=== PATIENT | female | born 2000 | race Caucasian/White ===

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

== ENCOUNTER → 2018-02-06 16:45 | Outpatient (CLI) | payer MEDICAID, SELFPAY ==
[2018-02-06 17:31] LABS: HCG,Quantitative 32 mIU/mL
== END ==
PROVIDERS: PCP Family Medicine; Visit Provider Nurse Practitioner Obstetrics & Gynecology
DX: O20.0 Threatened abortion (principal)
CPT/HCPCS: 36415; 84702

== ENCOUNTER → 2018-02-17 14:20 | Outpatient (CLI) | payer MEDICAID, SELFPAY ==
[2018-02-17 17:26] LABS: HCG,Quantitative 1 mIU/mL
== END ==
PROVIDERS: PCP Family Medicine; Visit Provider Nurse Practitioner Obstetrics & Gynecology
DX: O20.0 Threatened abortion (principal)
CPT/HCPCS: 36415; 84702

== ENCOUNTER → 2018-06-08 12:13 | Outpatient (CLI) | payer BC, MEDICAID, SELFPAY ==
[2018-06-08 13:35] LABS: HCG,Quantitative 1375 mIU/mL
== END ==
PROVIDERS: Visit Provider Nurse Practitioner Obstetrics & Gynecology
DX: Z32.00 Encounter for pregnancy test, result unknown (principal)
CPT/HCPCS: 36415; 84702

== ENCOUNTER → 2018-06-10 08:40 | Outpatient (CLI) | payer BC, MEDICAID, SELFPAY ==
[2018-06-10 10:22] LABS: HCG,Quantitative 3732 mIU/mL
== END ==
PROVIDERS: Visit Provider Obstetrics & Gynecology
DX: Z32.00 Encounter for pregnancy test, result unknown (principal)
CPT/HCPCS: 36415; 84702

== ENCOUNTER → 2018-06-15 09:44 | Outpatient (CLI) | payer BC, MEDICAID, SELFPAY ==
--- NOTE | 2018-06-15 09:48 | US_ITS ---
US OB transvaginal HISTORY: ITS.REASON: US OB Dates ORDERING PHYSICIAN: Eliel Lord MD PATIENT AGE: 18 years COMPARISON: None FINDINGS: There is an intrauterine gestational sac noted with a yolk sac. A definite pole is not identified. It may be too early to see a pole. Follow-up ultrasound recommended in one week for confirmation of viable intrauterine gestation in this patient with a history of miscarriage. There is a 1 cm left corpus luteum cyst. No cul-de-sac fluid. IMPRESSION: There is an intrauterine gestational sac with a yolk sac but no obvious pole. Cannot confirm viable intrauterine gestation at this time. Follow-up ultrasound and serial beta hCG is suggested.
== END ==
PROVIDERS: PCP Family Medicine; Visit Provider Nurse Practitioner Obstetrics & Gynecology
DX: O26.841 Uterine size-date discrepancy, first trimester (principal)
CPT/HCPCS: 76817

== ENCOUNTER → 2018-06-20 16:27 | Outpatient (CLI) | payer BC, SELFPAY ==
[2018-06-23 18:04] LABS: Neisseria gonorrhoeae, NAA Negative (Negative)
== END ==
PROVIDERS: Visit Provider Nurse Practitioner Obstetrics & Gynecology
DX: Z34.90 Encounter for supervision of normal pregnancy, unspecified, unspecified trimester (principal)
CPT/HCPCS: 87491; 87591

== ENCOUNTER → 2018-06-21 08:02 | Outpatient (CLI) | payer BC, SELFPAY ==
[2018-06-21 08:35] LABS: Basophils % 0.4 % (0.1-2.0); Eosinophils # 0.1 K/mm3 (0.0-0.4); Hematocrit 38.1 % (37.0-47.0); Hemoglobin 12.7 g/dL (12.2-16.2); Lymphocytes # 1.7 K/mm3 (0.7-4.5); Lymphocytes % 30.7 % (10-50); Mean Corpuscular HGB Conc 33.3 g/dL (31.8-35.4); Mean Corpuscular Hemoglobin 30.6 pg (27.0-31.2); Mean Corpuscular Volume 91.9 fl (81-99); Mean Platelet Volume 7.2 fl (7.4-10.4); Monocytes # 0.3 K/mm3 (0.1-1.0); Monocytes % 6.3 % (1.7-9.3); Neutrophils # 3.3 K/mm3 (1.8-7.8); Neutrophils % 61.5 % (37.0-80.0); Platelet Count 248 K/mm3 (142-424); Red Blood Count 4.14 M/mm3 (4.20-5.40); Red Cell Distribution Width 12.8 % (11.5-17.5); White Blood Count 5.4 K/mm3 (4.5-13.0)
[2018-06-22 08:27] LABS: HIV Screen 4th Generation wRfx Non Reactive (Non Reactive)
[2018-06-22 11:16] LABS: Hepatitis B Surface Antigen Negative (Negative); Hepatitis C Antibody <0.1 s/co ratio (0.0-0.9)
[2018-06-22 11:17] LABS: Rapid Plasma Reagin Ab Titer Non Reactive (NonRea<1:1)
== END ==
PROVIDERS: Visit Provider Nurse Practitioner Obstetrics & Gynecology
DX: Z34.90 Encounter for supervision of normal pregnancy, unspecified, unspecified trimester (principal)
CPT/HCPCS: 36415; 85025; 86592; 86703; 86762; 86850; 87340; 87380; G0432

== ENCOUNTER → 2018-06-26 12:57 | Outpatient (CLI) | payer BC, MEDICAID, SELFPAY ==
--- NOTE | 2018-06-26 13:01 | US_ITS ---
US OB transvaginal HISTORY: Evaluate for intrauterine and viability ITS.REASON: US OB Dates- Repeat (previous one was too early) ORDERING PHYSICIAN: Eliel Lord MD PATIENT AGE: 18 years COMPARISON: None FINDINGS: An intrauterine gestational sac is present with a pole with a crown-rump length of 0.73cm correlating to gestational age of 6w5d. heart tones are present with an FHR of 126 bpm's. Yolk sac is noted. Adnexa: 1.3 similar left corpus luteum cyst. IMPRESSION: Live intrauterine gestation at 6 weeks 5 days as described above. Estimated due date by Ultrasound is 02/14/2019
== END ==
PROVIDERS: PCP Family Medicine; Visit Provider Nurse Practitioner Obstetrics & Gynecology
DX: O26.841 Uterine size-date discrepancy, first trimester (principal)
CPT/HCPCS: 76817

== ENCOUNTER → 2018-09-25 13:04 | Outpatient (CLI) | payer BC, MEDICAID, SELFPAY ==
--- NOTE | 2018-09-25 13:10 | US_ITS ---
US OB /maternal detail: INDICATION: ITS.REASON: US OB Complete ORDERING PHYSICIAN: Eliel Lord MD PATIENT AGE: 18 years TECHNIQUE: ultrasound transabdominal scanning. COMPARISON: No previous relevant studies. FINDINGS: Single viable intrauterine gestation. Breech position. Placenta: Anterior placenta grade 1. There is average amount fluid. The cervix appears satisfactory. Closed and measuring 5 cm in length. Complete survey performed and was unremarkable on the submitted images as in PACS. No discrete anomalies identified on survey imaging by technologist. Active fetus. Three-vessel cord with satisfactory umbilical cord insertion. 4- chamber heart noted. Survey of brain & ventricles unremarkable. Face and neck survey unremarkable. Diaphragm and chest views unremarkable. Abdomen: Both kidneys noted and unremarkable. Stomach noted and satisfactory. Spine: Survey of the spine satisfactory with no anomalies identified nor imaged. Both arms and legs noted. Amniotic Fluid: Adequate. Maternal adnexa: No significant findings. Measurements: Average ultrasound age 20w2d. Gestational Age 19w5d. Estimated due date by ultrasound age 0802/10/2019. Estimated weight 332 grams. BPD = 20w4d OFD = 20w5d HC = 20w0d AC = 20w1d FL = 20w1d Growth Percentile= 68% Heart Rate = 155 bpm Cerebellum = 20w5d Humerus = 20w2d HC/AC is 1.17 (1.09-1.26). CI is 78% (70-86%). FL/BPD is 68%. FL/AC is 22%. IMPRESSION: There is a single live fetus which is in breech presentation with an average ultrasound age of 20 weeks and 2 days. All parameters correlate. No obvious anomalies. Please see above for detail.
== END ==
PROVIDERS: PCP Family Medicine; Visit Provider Nurse Practitioner Obstetrics & Gynecology
DX: Z36.0 Encounter for antenatal screening for chromosomal anomalies (principal)
CPT/HCPCS: 76811

== ENCOUNTER → 2018-11-11 09:34 | Outpatient (CLI) | payer MEDICAID, OTHER, SELFPAY ==
[2018-11-11 10:14] LABS: Glucose,Fasting 76 mg/dL (60-105)
[2018-11-11 11:31] LABS: Glucose 1 Hour 134 mg/dL (74-106)
== END ==
PROVIDERS: Visit Provider Nurse Practitioner Obstetrics & Gynecology
DX: Z34.90 Encounter for supervision of normal pregnancy, unspecified, unspecified trimester (principal)
CPT/HCPCS: 36415; 82951

== ENCOUNTER 2018-12-22 20:37 | Outpatient (CLI) | payer OTHER, MEDICAID, SELFPAY ==
[2018-12-22 20:44] VITALS: BMI 35.5
[2018-12-22 20:53] LABS: Microscopic, Urine URINE MICROSCOPIC (MICROSCOPIC)
[2018-12-22 20:58] LABS: Appearance,Urine CLEAR (Clear); Bilirubin,Urine Negative (Negative); Blood, Urine TRACE-L (Negative); Color,Urine YELLOW (Yellow); Glucose,Urine (UA) Negative (Negative); Ketones,Urine Negative (Negative); Leukocyte Esterase,Urine Negative (Negative); Nitrate,Urine Negative (Negative); Protein,Urine Negative (Negative); Specific Gravity, Urine >= 1.030 (1.005-1.030); Urobilinogen,Urine 0.2 EU/dl (0.2)
[2018-12-22 20:59] LABS: WBC,Urine Occasional #/hpf (0-3)
[2018-12-22 21:02] LABS: Amphetamine/Metha Screen,Urine Negative ng/mL (<1000); Barbiturates Screen,Urine Negative ng/mL (<200); Benzodiazepines Screen,Urine Negative ng/mL (<200); Cannabinoid Screen,Urine Negative ng/mL (<50); Cocaine Screen,Urine Negative ng/mL (<300); Methadone Screen,Urine Negative ng/mL (<300); Opiate Screen,Urine Negative ng/mL (<300); Phencyclidine Screen,Urine Negative ng/mL (<25)
[2018-12-22 21:06] VITALS: BP 128/83; PULSE 92; RESP 18; TEMP 37.2; O2SAT 97; BMI 35.5
[2018-12-22 21:20] LABS: Fetal Membrane Rupture (Rapid) Negative (Negative)
[2018-12-22 21:32] LABS: Fetal Fibronectin (Rapid) Negative (Negative)
== END 2018-12-22 23:30 | disposition home or self-care (01) ==
LOC: OBOUT 20:38 → OB 20:40
PROVIDERS: PCP Family Medicine; Visit Provider Obstetrics & Gynecology
DX: O47.03 False labor before 37 completed weeks of gestation, third trimester (principal); Z3A.32 32 weeks gestation of pregnancy
CPT/HCPCS: 59025; 80305; 81001; 82731; 84112; 96360; 96372

== ENCOUNTER 2018-12-26 09:32 | Outpatient (CLI) | payer OTHER, MEDICAID, SELFPAY ==
[2018-12-26 09:48] VITALS: BP 134/70; PULSE 93; RESP 18; TEMP 36.6; O2SAT 96; BMI 35.9
== END 2018-12-26 12:00 | disposition home health service (06) ==
LOC: OBOUT 09:34 → OB 09:36
PROVIDERS: PCP Family Medicine; Visit Provider Nurse Practitioner Obstetrics & Gynecology
DX: O47.03 False labor before 37 completed weeks of gestation, third trimester (principal); Z3A.32 32 weeks gestation of pregnancy
CPT/HCPCS: 59025; 96360; 96372

== ENCOUNTER → 2018-12-26 10:31 | Outpatient (CLI) | payer OTHER, MEDICAID, SELFPAY ==
[2018-12-26 11:50] LABS: Fetal Fibronectin (Rapid) Negative (Negative)
== END ==
PROVIDERS: Visit Provider Nurse Practitioner Obstetrics & Gynecology
DX: Z34.90 Encounter for supervision of normal pregnancy, unspecified, unspecified trimester (principal); Z3A.33 33 weeks gestation of pregnancy
CPT/HCPCS: 82731

== ENCOUNTER 2018-12-27 10:02 | Outpatient (CLI) | payer OTHER, MEDICAID, SELFPAY ==
[2018-12-27 10:06] VITALS: BP 129/81; PULSE 113; RESP 18; TEMP 36.8; O2SAT 96; BMI 35.0
== END 2018-12-27 10:51 | disposition home or self-care (01) ==
LOC: OBOUT 10:05 → OB 10:05
PROVIDERS: PCP Family Medicine; Visit Provider Nurse Practitioner Obstetrics & Gynecology
DX: O47.03 False labor before 37 completed weeks of gestation, third trimester (principal); Z3A.33 33 weeks gestation of pregnancy
CPT/HCPCS: 59025; 96372

== ENCOUNTER → 2018-12-29 14:01 | Outpatient (CLI) | payer OTHER, MEDICAID, SELFPAY ==
--- NOTE | 2018-12-29 14:03 | US_ITS ---
US OB BPP w/Fet-Mat S/D: Indication: ITS.REASON: US OB- BPP, Growth S/D Ratio- LGA ORDERING PHYSICIAN: Eliel Lord MD PATIENT AGE: 18 years FINDINGS: The following parameters are obtained: Average ultrasound age is 34w4d. Estimated due date by ultrasound is 02/05/2019. Estimated weight is 2477 grams. This is 82% BPD: 35w0d OFD: 34w5d HC: 34w3d AC: 35w1d FL: 33w5d heart rate: 135 bpm. HC/AC: 0.99 (0.96-1.11) Cephalic index: 80% (70-86%) FL/BPD: 76% (71-87%) FL/AC: 21% (20-24%) Amniotic fluid index: 19 cm which is slightly high Qualitative AFV: 2 breathing movements: 2 Gross body movements: 2 Tone: 2 Biophysical profile score: 8/8 Doppler evaluation of the umbilical artery: SD ratio: 2.0 Resistive index: 0.50 No obvious anomalies evident. Placenta: Anterior, GR2 Cervix: Appears closed and measures Measurement IMPRESSION: There is a single live fetus which is in cephalic presentation with an average ultrasound age of 34 weeks and 4 days with an estimated weight of 2474 g which is 82 percentile. heart body motion noted. Biophysical profile 8 of 8 Amniotic fluid index is slightly elevated at 19 cm Unremarkable Doppler evaluation of the umbilical artery Normal gated.
== END ==
PROVIDERS: PCP Family Medicine; Visit Provider Nurse Practitioner Obstetrics & Gynecology
DX: O36.60X0 Maternal care for excessive fetal growth, unspecified trimester, not applicable or unspecified (principal)
CPT/HCPCS: 76819

== ENCOUNTER 2019-01-08 16:34 | Outpatient (CLI) | payer OTHER, MEDICAID, SELFPAY ==
[2019-01-08 16:45] VITALS: BMI 36.3
[2019-01-08 16:53] VITALS: BP 138/84; PULSE 98; RESP 18; TEMP 36.8; O2SAT 96; BMI 36.3
[2019-01-08 17:19] LABS: Microscopic, Urine URINE MICROSCOPIC (MICROSCOPIC)
[2019-01-08 17:21] LABS: Appearance,Urine SL CLOUDY (Clear); Bilirubin,Urine Negative (Negative); Blood, Urine Negative (Negative); Color,Urine YELLOW (Yellow); Glucose,Urine (UA) Negative (Negative); Ketones,Urine Negative (Negative); Leukocyte Esterase,Urine Negative (Negative); Nitrate,Urine Negative (Negative); PH,Urine 6.5 (5.0-8.5); Protein,Urine Negative (Negative); Specific Gravity, Urine 1.025 (1.005-1.030); Urobilinogen,Urine 0.2 EU/dl (0.2)
[2019-01-08 17:30] LABS: Amphetamine/Metha Screen,Urine Negative ng/mL (<1000); Barbiturates Screen,Urine Negative ng/mL (<200); Benzodiazepines Screen,Urine Negative ng/mL (<200); Cannabinoid Screen,Urine Negative ng/mL (<50); Cocaine Screen,Urine Negative ng/mL (<300); Methadone Screen,Urine Negative ng/mL (<300); Opiate Screen,Urine Negative ng/mL (<300); Phencyclidine Screen,Urine Negative ng/mL (<25)
[2019-01-08 17:32] LABS: Bacteria,Urine 3+ /lpf; Mucus,Urine 4+ /lpf
== END 2019-01-08 18:20 | disposition home or self-care (01) ==
LOC: OBOUT 16:37 → OB 16:38
PROVIDERS: PCP Nurse Practitioner Obstetrics & Gynecology; Visit Provider Obstetrics & Gynecology
DX: O47.03 False labor before 37 completed weeks of gestation, third trimester (principal); Z3A.34 34 weeks gestation of pregnancy
CPT/HCPCS: 59025; 80305; 81001; 87086; 96360

== ENCOUNTER 2019-01-12 20:00 | Outpatient (CLI) | payer OTHER, MEDICAID, SELFPAY ==
[2019-01-12 20:06] VITALS: BMI 36.3
[2019-01-12 20:16] LABS: Microscopic, Urine URINE MICROSCOPIC (MICROSCOPIC)
[2019-01-12 20:19] LABS: Appearance,Urine CLEAR (Clear); Bilirubin,Urine Negative (Negative); Blood, Urine Negative (Negative); Color,Urine YELLOW (Yellow); Glucose,Urine (UA) Negative (Negative); Ketones,Urine Negative (Negative); Leukocyte Esterase,Urine Negative (Negative); Nitrate,Urine Negative (Negative); Protein,Urine Negative (Negative); Specific Gravity, Urine >= 1.030 (1.005-1.030); Urobilinogen,Urine 0.2 EU/dl (0.2)
[2019-01-12 20:30] LABS: Amphetamine/Metha Screen,Urine Negative ng/mL (<1000); Barbiturates Screen,Urine Negative ng/mL (<200); Benzodiazepines Screen,Urine Negative ng/mL (<200); Cannabinoid Screen,Urine Negative ng/mL (<50); Cocaine Screen,Urine Negative ng/mL (<300); Methadone Screen,Urine Negative ng/mL (<300); Opiate Screen,Urine Negative ng/mL (<300); Phencyclidine Screen,Urine Negative ng/mL (<25)
[2019-01-12 20:35] VITALS: BP 141/97; PULSE 120; RESP 18; TEMP 36.9; O2SAT 97; BMI 36.1
[2019-01-12 20:36] LABS: Bacteria,Urine Trace /lpf; WBC,Urine Occasional #/hpf (0-3)
== END 2019-01-12 21:30 | disposition home or self-care (01) ==
LOC: OBOUT 20:03 → OB 20:03
PROVIDERS: PCP Nurse Practitioner Obstetrics & Gynecology; Visit Provider Obstetrics & Gynecology
DX: O13.3 Gestational [pregnancy-induced] hypertension without significant proteinuria, third trimester (principal); Z3A.35 35 weeks gestation of pregnancy; R51 Headache
CPT/HCPCS: 59025; 80305; 81001

== ENCOUNTER → 2019-01-15 10:43 | Outpatient (CLI) | payer OTHER, MEDICAID, SELFPAY ==
[2019-01-15 11:28] LABS: Basophils % 0.3 % (0.1-2.0); Eosinophils % 0.3 % (0.1-12.0); Hematocrit 36.8 % (37.0-47.0); Hemoglobin 12.3 g/dL (12.2-16.2); Lymphocytes # 1.5 K/mm3 (0.7-4.5); Lymphocytes % 17.9 % (10-50); Mean Corpuscular HGB Conc 33.4 g/dL (31.8-35.4); Mean Corpuscular Hemoglobin 30.8 pg (27.0-31.2); Mean Corpuscular Volume 92.3 fl (81-99); Mean Platelet Volume 7.5 fl (7.4-10.4); Monocytes # 0.5 K/mm3 (0.1-1.0); Monocytes % 5.9 % (1.7-9.3); Neutrophils # 6.5 K/mm3 (1.8-7.8); Neutrophils % 75.5 % (37.0-80.0); Platelet Count 209 K/mm3 (142-424); Red Blood Count 3.99 M/mm3 (4.20-5.40); Red Cell Distribution Width 14.1 % (11.5-17.5); White Blood Count 8.6 K/mm3 (4.5-13.0)
[2019-01-15 11:51] LABS: Activated Partial Thrombo Time 24.4 seconds (23.6-34.0); Fibrinogen 445 mg/dL (204-500); INR 0.87 (0.9-1.1); Prothrombin Time 9.1 seconds (9.4-11.8)
[2019-01-15 12:39] LABS: Alanine Aminotransferase 18 U/L (12-78); Anion Gap 15.4 mEq/L (5-15); Aspartate Amino Transferase 15 U/L (15-37); Blood Urea Nitrogen 16 mg/dL (7-18); Carbon Dioxide 22 mmol/L (21.0-32.0); Chloride 104 mmol/L (98-107); Creatinine,Serum 0.42 mg/dL (0.55-1.02); Estimated Glomerular Filt Rate 192 ml/min (>60); GFR (African American) 233 ML/MIN (>60); Glucose 67 mg/dL (74-106); Potassium 4.4 mmoL/L (3.5-5.1); Sodium 137 mmol/L (136-145); Uric Acid 4.2 mg/dL (2.6-7.2)
[2019-01-15 13:13] LABS: D-Dimer 794 ng/mL (0-400)
== END ==
PROVIDERS: Visit Provider Nurse Practitioner Obstetrics & Gynecology
DX: O13.9 Gestational [pregnancy-induced] hypertension without significant proteinuria, unspecified trimester (principal); Z3A.36 36 weeks gestation of pregnancy
CPT/HCPCS: 36415; 80048; 84450; 84460; 84550; 85025; 85378; 85384; 85610; 85730; 86403

== ENCOUNTER → 2019-01-17 07:00 | Outpatient (CLI) | payer OTHER, MEDICAID, SELFPAY ==
[2019-01-17 11:30] LABS: Creatinine,Serum 0.48 mg/dL (0.55-1.02)
[2019-01-17 16:24] LABS: Creatinine,Urine Random 151 mg/dL (20-320); Total Protein,Urine Random 19.2 mg/dL (0.0-11.9)
[2019-01-17 16:58] LABS: Collection Time,Urine 24 hours; Creatinine 24 Hour,Urine 1737 mg/24hr (630-2500); Creatinine Clearance Urine 251.2 mL/min (25-115); Total Protein 24 Hour,Urine 221 mg/24 hr (40-90); Total Volume,Urine 1150 mL (600-1600)
== END ==
PROVIDERS: Visit Provider Nurse Practitioner Obstetrics & Gynecology
DX: O13.9 Gestational [pregnancy-induced] hypertension without significant proteinuria, unspecified trimester (principal); Z3A.36 36 weeks gestation of pregnancy
CPT/HCPCS: 82575; 84155

== ENCOUNTER → 2019-01-24 12:48 | Outpatient (CLI) | payer OTHER, MEDICAID, SELFPAY ==
--- NOTE | 2019-01-24 12:49 | US_ITS ---
PROCEDURE: US OB BPP W/FET-MAT S/D CLINICAL INDICATION: US OB BPP Growth- SGA Preeclampsia COMPARISON: OBBIOCOMP US OB BPP w/Fet-Mat S/D from 12/29/2018 FINDINGS: Single viable intrauterine gestation. Cephalic position. Placenta: Anteriorplacenta grade 2. There is average amount fluid. The cervix appears satisfactory. Closed and measuring 3 cm in length. Measurements: Average ultrasound age 38.14 week. Gestational Age 38.14 week Estimated due date by ultrasound age 0802/06/2019. Estimated weight 3,398.6 ggrams. BPD = 39 weeks 0 days OFD = 39 weeks 5 days HC = 37 weeks 6 days AC = 38 weeks 5 days FL = 36 weeks 4 days Growth Percentile= 60.2 Percent% Heart Rate = 122 bpm Cerebellum = Humerus = HC/AC is 0.95 CI is 0.83 FL/BPD is 0.75 FL/AC is 0.2 The biophysical profile is 8 of 8. Doppler evaluation of the umbilical artery is unremarkable with a resistive index of 0.[address] ratio of 2.4. The placenta is anterior and grade 2. 8 of 8 amniotic fluid index is normal at 17 cm. IMPRESSION: Single live fetus with an average ultrasound age of 38 weeks and 1 day. Estimated weight is 3398 g which is 60 percentile. Unremarkable Doppler evaluation of the umbilical artery. Biophysical profile 01/18 Dictated by: Joe Watts MD 01/29/2019 16:35 Signed by: <Electronically signed by Joe Watts MD in [place]> 01/29/2019 16:35
== END ==
PROVIDERS: PCP Family Medicine; Visit Provider Nurse Practitioner Obstetrics & Gynecology
DX: O36.60X0 Maternal care for excessive fetal growth, unspecified trimester, not applicable or unspecified (principal)
CPT/HCPCS: 76819

== ENCOUNTER 2019-01-28 14:41 | Outpatient (CLI) | payer OTHER, MEDICAID, SELFPAY ==
[2019-01-28 14:53] VITALS: BMI 36.3
[2019-01-28 15:00] VITALS: BP 145/86; PULSE 87; RESP 16; TEMP 36.8; O2SAT 96; BMI 36.3
[2019-01-28 15:02] LABS: Microscopic, Urine URINE MICROSCOPIC (MICROSCOPIC)
[2019-01-28 15:04] LABS: Appearance,Urine SL CLOUDY (Clear); Bilirubin,Urine Negative (Negative); Blood, Urine Negative (Negative); Color,Urine YELLOW (Yellow); Glucose,Urine (UA) Negative (Negative); Ketones,Urine Negative (Negative); Leukocyte Esterase,Urine Negative (Negative); Nitrate,Urine Negative (Negative); Protein,Urine Negative (Negative); Urobilinogen,Urine 0.2 EU/dl (0.2)
[2019-01-28 15:10] VITALS: BP 140/80; PULSE 91
[2019-01-28 15:12] LABS: Amphetamine/Metha Screen,Urine Negative ng/mL (<1000); Barbiturates Screen,Urine Negative ng/mL (<200); Benzodiazepines Screen,Urine Negative ng/mL (<200); Cannabinoid Screen,Urine Negative ng/mL (<50); Cocaine Screen,Urine Negative ng/mL (<300); Methadone Screen,Urine Negative ng/mL (<300); Opiate Screen,Urine Negative ng/mL (<300); Phencyclidine Screen,Urine Negative ng/mL (<25)
[2019-01-28 15:13] LABS: Bacteria,Urine 3+ /lpf; WBC,Urine Occasional #/hpf (0-3)
== END 2019-01-28 15:54 | disposition home or self-care (01) ==
LOC: OBOUT 14:43 → OB 14:44
PROVIDERS: PCP Family Medicine; Referring Provider Nurse Practitioner Obstetrics & Gynecology; Visit Provider Obstetrics & Gynecology
DX: O13.9 Gestational [pregnancy-induced] hypertension without significant proteinuria, unspecified trimester (principal); Z3A.37 37 weeks gestation of pregnancy
CPT/HCPCS: 59025; 80305; 81001; 87086

== ENCOUNTER 2019-01-30 16:24 | Inpatient (IN) ==
--- NOTE | 2019-01-30 17:09 | History & Physical Report ---
OB - H&P: HPI Antepartum - History of Present Illness Chief complaint: Term , increased blood pressure History of present illness: She is a 18-year-old 1 para 0 who has chronic hypertension with possible overlying -induced hypertension. She has been followed with increasing blood pressure and started initially on 100 mg twice daily of labetalol. She was doing well with this and then we had to increase the dosage to 200 twice daily. She now has proteinuria as well. As result of that we have elected to induce her labor. - History of Present Criteria for establishing EDC:: LMP confirmed by 1st trimester US care: good care Ultrasounds: normal 1st trimester US, normal mid trimester US Obstetrical complications: preeclampsia, gestational hypertension Medical complications: none [facility] History I have reviewed the patient's past medical history: Yes Medical History: Denies:: Anxiety, Asthma, Seizures *Have you ever received a pneumonia vaccine?: No *Have you received a flu vaccine this season?: No Laterality Cases: Other Surgeries: No: Amputation: No Fractures: No - *Social History Smoking Status: Never smoker Alcohol Intake: never Alcohol Intake Frequency:: holidays/special occasions only Substance Use Type: denies use *Occupational Status:: employed *Travel in the last 8 weeks: None - Psychiatric History Pschychiatric History:: Denies:: Anxiety Family Hx:: Cancer 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 Para: 0 Review of Systems - Review of Systems Review of systems:: pertinent systems reviewed and negative unless documented below Meds Home Medications Medication Instructions Recorded Confirmed Type 1 tab PO DAILY 06/20/18 01/29/19 History vitamin,calcium,bsbgumnp-anzr-jkxnk acid tablet labetalol 100 mg tablet 100 mg PO BID #60 tab 01/18/19 01/29/19 Rx nifedipine 10 mg capsule 10 mg PO TID cap 01/18/19 01/29/19 History ferrous sulfate 325 mg (65 mg 325 mg PO DAILY #30 tab 01/26/19 01/29/19 Rx iron) tablet hydroxyzine pamoate 25 mg capsule 25 mg PO QID #60 cap 01/26/19 01/29/19 Rx Allergies Allergy/AdvReac Type Severity Reaction Status Date / Time azithromycin [AZITHROMYCIN] Allergy Unknown Verified 01/29/19 09:54 Sulfa (Sulfonamide Allergy Unknown Verified 01/29/19 09:54 Antibiotics) [SULFA (SULFONAMIDE ANTIBIOTICS)] STEROIDS Allergy Uncoded 01/29/19 09:54 OB - H&P: Exam - Physical Exam Vital signs: Temp Pulse Resp BP Pulse Ox 98.6 F 86 18 127/83 97 01/30/19 16:49 01/30/19 16:49 01/30/19 16:49 01/30/19 16:49 01/30/19 16:49 - Constitutional no acute distress - Routine HEENT Exam Head: Present: normocephalic Eye: Present: EOMI, PERRL ENT: Present: mucous membranes moist - Routine Neck Exam Present: supple, full ROM - Routine Respiratory Exam Absent: accessory muscle use (good air entry bilaterally), respiratory distress, wheezes, crackles - Routine Cardiovascular Exam Present: RRR. Absent: murmur - Routine Abdominal Exam Present: soft, normoactive bowel sounds. Absent: tenderness, distended, guarding - Routine Rectal Exam Patient deferred: visual exam, digital exam - Routine Exam Patient deferred: external exam, groin exam, perineal exam - Routine Extremities Exam Present: full ROM. Absent: cyanosis, edema - Routine Skin Exam Present: intact. Absent: cyanosis - Routine Neurological Exam Present: alert, oriented X3 - Routine Psychiatric Exam Present: normal affect OB - A/P Antepartum (1) induced hypertension, delivered, current hospitalization Current visit: Yes Status: Acute - Additional Plan Planning to breastfeed?: Yes Plan: induction Additional Information:: Her cervix is 50% effaced and closed. Station is -3. I inserted Cervidil. We will continue this overnight and plan to start oxytocin in the morning.
[2019-01-30 17:51] LABS: Basophils % 0.2 % (0.1-2.0); Eosinophils # 0.1 K/mm3 (0.0-0.4); Eosinophils % 1.3 % (0.1-12.0); Hematocrit 34.1 % (37.0-47.0); Hemoglobin 11.3 g/dL (12.2-16.2); Lymphocytes # 1.4 K/mm3 (0.7-4.5); Lymphocytes % 20.7 % (10-50); Mean Corpuscular HGB Conc 33.2 g/dL (31.8-35.4); Mean Corpuscular Volume 93.1 fl (81-99); Mean Platelet Volume 7.3 fl (7.4-10.4); Monocytes # 0.4 K/mm3 (0.1-1.0); Monocytes % 5.7 % (1.7-9.3); Platelet Count 184 K/mm3 (142-424); Red Blood Count 3.67 M/mm3 (4.20-5.40); Red Cell Distribution Width 14.4 % (11.5-17.5); White Blood Count 6.9 K/mm3 (4.5-13.0)
[2019-01-30 19:32] LABS: Microscopic, Urine URINE MICROSCOPIC (MICROSCOPIC)
[2019-01-30 19:36] LABS: Appearance,Urine CLEAR (Clear); Bilirubin,Urine Negative (Negative); Blood, Urine Negative (Negative); Color,Urine YELLOW (Yellow); Glucose,Urine (UA) Negative (Negative); Ketones,Urine Negative (Negative); Leukocyte Esterase,Urine Negative (Negative); PH,Urine 6.5 (5.0-8.5); Protein,Urine Negative (Negative); Specific Gravity, Urine 1.025 (1.005-1.030); Urobilinogen,Urine 0.2 EU/dl (0.2)
[2019-01-30 19:44] LABS: Amphetamine/Metha Screen,Urine Negative ng/mL (<1000); Barbiturates Screen,Urine Negative ng/mL (<200); Benzodiazepines Screen,Urine Negative ng/mL (<200); Cannabinoid Screen,Urine Negative ng/mL (<50); Cocaine Screen,Urine Negative ng/mL (<300); Methadone Screen,Urine Negative ng/mL (<300); Opiate Screen,Urine Negative ng/mL (<300); Phencyclidine Screen,Urine Negative ng/mL (<25)
[2019-01-30 20:05] LABS: Bacteria,Urine Trace /lpf; WBC,Urine Occasional #/hpf (0-3)
--- NOTE | 2019-01-31 07:27 | Progress Note ---
Internal Medicine - PN: Subj *Date: 01/31/19 *Time: 07:26 Interval history: She has had Cervidil overnight and is having regular contractions every 2 minutes. Nonstress test is reactive. Her cervix has not changed. Exam Vital signs and Labs for Last 24 Hours: Temp Pulse Resp BP Pulse Ox 98.2 F 85 16 138/75 97 01/30/19 20:16 01/30/19 20:16 01/30/19 20:16 01/30/19 20:16 01/30/19 20:16 Laboratory Results - last 24 hr 01/30/19 17:10: WBC 6.9, RBC 3.67 L, Hgb 11.3 L, Hct 34.1 L, MCV 93.1, MCH 30.9, MCHC 33.2, RDW 14.4, Plt Count 184, MPV 7.3 L, Neut % (Auto) 72.0, Lymph % (Auto) 20.7, [place] % (Auto) 5.7, Eos % (Auto) 1.3, Baso % (Auto) 0.2, Neut # (Auto) 5.0, Lymph # (Auto) 1.4, [place] # (Auto) 0.4, Eos # (Auto) 0.1, Baso # (Auto) 0.0 01/30/19 17:10: Blood Type O Positive, Antibody Screen Negative 01/30/19 18:00: Urine Color Yellow, Urine Appearance Clear, Urine pH 6.5, Ur Specific [place] 1.025, Urine Protein Negative, Urine Glucose (UA) Negative, Urine Ketones Negative, Urine Blood Negative, Urine Nitrate Negative, Urine Bilirubin Negative, Urine Urobilinogen 0.2, Ur Leukocyte Esterase Negative, Urine WBC Occasional, Ur Squamous Epith Cells 5-10, Urine Bacteria Trace 01/30/19 18:00: Urine Opiates Screen Negative, Urine Methadone Screen Negative, Ur Barbituates Screen Negative, Ur Phencyclidine Scrn Negative, Ur Amphetamines Screen Negative, U Benzodiazepines Scrn Negative, Urine Cocaine Screen Negative, U Marijuana (THC) Screen Negative I & O for Last 24 hours: Intake & Output 01/28/19 01/29/19 01/30/19 01/31/19 11:59 11:59 11:59 11:59 Weight 225 lb - Constitutional no acute distress Assessment and Plan (1) induced hypertension, delivered, current hospitalization Current visit: Yes Status: Acute Category: Medical Code(s): O13.4 - Gestational [-induced] hypertension without significant proteinuria, complicating childbirth - Assessment and plan all Dx Assessment and Plan for all problems:: Her cervix has not changed. She is closed 75% Station -2 nonstress test is reactive and she is luis every 2 minutes. We will continue with oxytocin for now and see how she does this morning.
--- NOTE | 2019-01-31 11:34 | Progress Note ---
Internal Medicine - PN: Subj *Date: 01/31/19 *Time: 11:33 Interval history: She continues to have regular contractions. She is on oxytocin. She has not changed her cervix. The nonstress test is reactive. Exam Vital signs and Labs for Last 24 Hours: Temp Pulse Resp BP Pulse Ox 98.2 F 85 16 138/75 97 01/30/19 20:16 01/30/19 20:16 01/30/19 20:16 01/30/19 20:16 01/30/19 20:16 Laboratory Results - last 24 hr 01/30/19 17:10: WBC 6.9, RBC 3.67 L, Hgb 11.3 L, Hct 34.1 L, MCV 93.1, MCH 30.9, MCHC 33.2, RDW 14.4, Plt Count 184, MPV 7.3 L, Neut % (Auto) 72.0, Lymph % (Auto) 20.7, [place] % (Auto) 5.7, Eos % (Auto) 1.3, Baso % (Auto) 0.2, Neut # (Auto) 5.0, Lymph # (Auto) 1.4, [place] # (Auto) 0.4, Eos # (Auto) 0.1, Baso # (Auto) 0.0 01/30/19 17:10: Blood Type O Positive, Antibody Screen Negative 01/30/19 18:00: Urine Color Yellow, Urine Appearance Clear, Urine pH 6.5, Ur Specific [place] 1.025, Urine Protein Negative, Urine Glucose (UA) Negative, Urine Ketones Negative, Urine Blood Negative, Urine Nitrate Negative, Urine Bilirubin Negative, Urine Urobilinogen 0.2, Ur Leukocyte Esterase Negative, Urine WBC Occasional, Ur Squamous Epith Cells 5-10, Urine Bacteria Trace 01/30/19 18:00: Urine Opiates Screen Negative, Urine Methadone Screen Negative, Ur Barbituates Screen Negative, Ur Phencyclidine Scrn Negative, Ur Amphetamines Screen Negative, U Benzodiazepines Scrn Negative, Urine Cocaine Screen Negative, U Marijuana (THC) Screen Negative I & O for Last 24 hours: Intake & Output 01/28/19 01/29/19 01/30/19 01/31/19 11:59 11:59 11:59 11:59 Weight 225 lb - Constitutional no acute distress Assessment and Plan (1) induced hypertension, delivered, current hospitalization Current visit: Yes Status: Acute Category: Medical Code(s): O13.4 - Gestational [-induced] hypertension without significant proteinuria, complicating childbirth (2) pelvic disproportion delivered Current visit: Yes Status: Acute Category: Medical Code(s): O33.9 - Maternal care for disproportion, unspecified - Assessment and plan all Dx Assessment and Plan for all problems:: She has not changed her cervix and the presenting part is still quite high. The cervix is closed and 75% effaced. We will go ahead with a section. We discussed the risks of surgery that includes bleeding, infection, injury to the bowel and bladder. We discussed the rare risk of DVT. We discussed the need for DVT prophylaxis. All questions were answered and consents were signed.
--- NOTE | 2019-01-31 13:26 | Operative Note ---
Date of procedure: 01/31/19 Pre-op Diagnosis:: Term , -induced hypertension, pelvic disproportion Post-op Diagnosis:: Term , -induced hypertension, pelvic disproportion Procedure performed:: Primary lower segment transverse section Surgeon:: Elile Lord MD TOY STUFFER:: Hamilton Figueroaty Anesthesia: spinal Estimated blood loss (mL): 600 Clinical Note:: She is a 18-year-old 1 para 0 at 38 weeks gestational age. She has been followed for labor as well as increasing blood pressure in the third trimester. We initially started her on 100 mg twice daily of labetalol and she is required that dose to be increased to 200 mg twice daily. She also began to have proteinuria. As a result of this we elected to induce her labor. Unfortunately she did not progress at all. Her cervix remained closed and 75% effaced. The presented part was high. As result of that pelvic dispro portion was diagnosed and we elected perform a primary lower segment transverse section. The risks and benefits of surgery were discussed the patient her family. Operative findings:: She delivered a liveborn male child at 12:55 PM in the afternoon of February 03, 2019. Baby had Apgars of 3 at 1 minute and 8 at 5 minutes. Ovaries and tubes appeared normal. Operative note:: She was taken to the operating room where spinal anesthesia was found be adequate. She was prepped and draped in normal sterile fashion in the supine position with a leftward tilt. A Figueroa catheter was in the bladder. A Pfannenstiel skin incision was made with knife then carried through to the underlying layer of fascia with cautery. The fascia was opened in the midline with cautery and extended laterally using Del Valle scissors. Fulton clamps were applied to the superior aspect of the fascial incision which was tented up and the underlying rectus muscles dissected off using cautery. The Fulton clamps were then applied to the inferior aspect of the fascial incision which in a similar fashion was tented up and the underlying rectus muscles dissected off using cautery. The rectus muscles were then in the midline, the peritoneum identified, and entered sharply with Metzenbaum scissors. This incision was then extended superiorly and inferiorly with cautery. We had good visualization of the bladder inferiorly. We then the bladder peritoneum was then opened in the midline and extended laterally using Metzenbaum scissors. A bladder flap was cre ated digitally. The Rafat device was then placed within the abdominal cavity. Transverse incision was made through the uterine muscle to the amnion. This incision was then extended laterally using fingers traction. The amnion was entered sharply with knife. There was clear amniotic fluid. The 's head was then delivered atraumatically. This was followed by the anterior shoulder and the rest of the infant's body atraumatically. The oropharynx and nasopharynx were bulb suctioned. The was then handed off to Dr. Balderas who assigned Apgars of 3 at 1 minute and 8 at 5 minutes. We then obtained cord blood as well as cord pH. The pH was 7.34. Using gentle traction on the cord and countertraction on the fundus I was able to easily deliver the placenta intact. It had a normal three-vessel cord. The uterus was then cleared of clots and debris . The uterine incision was then closed using running 0 Vicryl suture in a locked fashion. A second layer of the same suture was used to imbricate the first layer. The bladder peritoneum was then closed using running 2-0 Vicryl suture in a locked fashion. The gutters and cul-de-sac were then cleared of clots and debris . Once again hemostasis was assured. The peritoneum was grasped with Bailey clamps and closed using running 2-0 Vicryl suture. The rectus muscles were then reapproximated using running 0 Vicryl suture. The fascia was closed using running #1 Vicryl suture. The subcutaneous tissues were then irrigated with warm water followed by closure Juan's fascia using running 2-0 Monocryl suture. The skin was closed with shilpa. I then cleaned the skin with Hibiclens. Sterile dressings were applied. She tolerated the procedure well and was taken to the recovery room in excellent condition. All sponges minute and needle counts were correct. Estimate a blood loss was approximately 600 mL. Condition: stable Disposition: PACU Specimens:: Products of conception Complications:: None
--- NOTE | 2019-01-31 13:31 | Progress Note ---
[facility] Anesthesia Checklist - Patient Identification Patient Identification: Arm Band, Verbal (Name & ) - Structural Data Admitted From: Inpatient Planned Operative Procedure/s: c section Consent for Planned Operative Procedure(s) Verified: Yes Verified Documents: History and Physical - NPO Status Verified Time NPO: 00:00 - Additional verifications Patient : Yes Anesthesia Reactions: No Hx Blood Transfusions: No Blood Transfusion Reaction: No Cephalosporin Allergy: No Previous Colonoscopy: No - Cardiovascular Assessment Heart Sounds: S1 & S2 Pulse Strength: Baseline Pulse Rhythm: Regular Peripheral Edema: No - Airway Assessment C-Spine Mobility Assessed: Yes TMJ Mobility Assessed: Yes Dentition: Good Dentition - Neurological Assessment Level of Consciousness: Awake, Alert, Appropriate Hx Seizures: No Numbness or tingling in extremities: No - Anesthesia Plan Anesthesia Risk discussed: Yes ASA Class: II Anesthesia Type: Epidural [facility] History I have reviewed the patient's past medical history: Yes Medical History: Denies:: Anxiety, Asthma, Seizures *Have you ever received a pneumonia vaccine?: No *Have you received a flu vaccine this season?: No Laterality Cases: Other Surgeries: No: Amputation: No Fractures: No - *Social History Smoking Status: Never smoker Alcohol Intake: never Alcohol Intake Frequency:: holidays/special occasions only Substance Use Type: denies use *Occupational Status:: employed *Travel in the last 8 weeks: None - Psychiatric History Pschychiatric History:: Denies:: Anxiety Family Hx:: Cancer 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
--- NOTE | 2019-01-31 13:32 | Progress Note ---
[facility] Anesthesia Record Part I Intake, IV Amount: 650 Estimated blood loss (mL): 600 Urine output (mL): 250 Blood Pressure: 113/62 SaO2: 98 Pulse Rate: 75 Respiratory Rate: 20 Temperature: 97.6 F Patient is:: Awake, Stable Stable to PACU at:: 13:27
--- NOTE | 2019-01-31 13:33 | Progress Note ---
[facility] Anesthesia Record Part II Discharge Time: 13:57 Destination: Obstetric PACU nurse assessment reviewed?: Yes Patient Condition:: Good Anesthesia Complications:: None Swallowing reflex intact?: Yes Cyanosis?: No
[2019-02-01 06:36] LABS: Hemoglobin 10.7 g/dL (12.2-16.2)
--- NOTE | 2019-02-01 08:25 | Progress Note ---
Internal Medicine - PN: Subj *Date: 02/01/19 *Time: 08:24 Interval history: She is postop day 1 and doing very well from a . Her pain is improved. She is bottlefeeding. Her lochia is normal. Her incision is clean and dry. Exam Vital signs and Labs for Last 24 Hours: Temp Pulse Resp BP Pulse Ox 97.9 F 71 18 121/74 99 01/31/19 20:15 01/31/19 20:15 01/31/19 20:15 01/31/19 20:15 01/31/19 20:15 Laboratory Results - last 24 hr 01/31/19 12:50: Cord ABG pH 7.34 L 02/01/19 06:08: Hgb 10.7 L, Hct 32.0 L I & O for Last 24 hours: Intake & Output 01/29/19 01/30/19 01/31/19 02/01/19 11:59 11:59 11:59 11:59 Intake Total 650 / 650 Output Total 1375 / 1375 Balance -725 / -725 Weight 225 lb - Constitutional no acute distress Assessment and Plan (1) induced hypertension, delivered, current hospitalization Current visit: Yes Status: Acute Category: Medical Code(s): O13.4 - Gestational [-induced] hypertension without significant proteinuria, complicating childbirth (2) pelvic disproportion delivered Current visit: Yes Status: Acute Category: Medical Code(s): O33.9 - Maternal care for disproportion, unspecified - Assessment and plan all Dx Assessment and Plan for all problems:: She is doing very well. We will plan to send her home in 48 hours.
--- NOTE | 2019-02-02 07:50 | Pharmacy Consult Notes ---
[facility] Pharmacy VTE Monitoring - Patient Demographics Admission date: 01/30/19 Report Date: 02/02/19 Time: 07:50 Allergies/Adverse Reactions: Patient Allergies azithromycin [AZITHROMYCIN] Allergy (Unknown, Verified 01/29/19 09:54) Sulfa (Sulfonamide Antibiotics) [SULFA (SULFONAMIDE ANTIBIOTICS)] Allergy (Unknown, Verified 01/29/19 09:54) prednisone Allergy (Verified 01/30/19 18:50) Height: 1.68 m Weight: 102.058 kg Patient Problems: Current Active Problems induced hypertension, antepartum (Acute) induced hypertension, delivered, current hospitalization (Acute) pelvic disproportion delivered (Acute) - VTE Risk Labs: VTE Related Lab Results Hgb 10.7 g/dL (12.2-16.2) L 02/01/19 06:08 Hct 32.0 % (37.0-47.0) L 02/01/19 06:08 Plt Count 184 K/mm3 (142-424) 01/30/19 17:10 - Prophylaxis VTE Prophylaxis Ordered?: Yes Types of VTE Prophylaxis: IPCS Thigh High Location of Applied Device: Bilateral Lower Extremeties - VTE Diagnosis Confirmed Treatment or plan recommended: Continue Current Treatment
--- NOTE | 2019-02-02 08:43 | Progress Note ---
Internal Medicine - PN: Subj *Date: 02/02/19 *Time: 08:40 Interval history: She continues to do well this morning. She is eating and drinking and ambulating. She is bottlefeeding. She complains of some left-sided burning pain on the incision. On examination of the incision is clean and dry. It is just slightly tender on the left side. Exam Vital signs and Labs for Last 24 Hours: Temp Pulse Resp BP Pulse Ox 98.3 F 86 18 139/81 98 02/02/19 04:00 02/02/19 04:00 02/02/19 04:00 02/02/19 04:00 02/02/19 04:00 I & O for Last 24 hours: Intake & Output 01/30/19 01/31/19 02/01/19 02/02/19 11:59 11:59 11:59 11:59 Intake Total 650 / 650 Output Total 1375 / 1375 Balance -725 / -725 Weight 225 lb - Constitutional no acute distress - *Routine Abdominal Exam Present: soft (Her incision is clean and dry.), normoactive bowel sounds. Absent: tenderness, rebound, guarding, mass Assessment and Plan (1) induced hypertension, delivered, current hospitalization Current visit: Yes Status: Acute Category: Medical Code(s): O13.4 - Gestational [-induced] hypertension without significant proteinuria, complicating childbirth (2) pelvic disproportion delivered Current visit: Yes Status: Acute Category: Medical Code(s): O33.9 - Maternal care for disproportion, unspecified - Assessment and plan all Dx Assessment and Plan for all problems:: She is doing very well. We will plan to send her home tomorrow. We will go ahead and start Toradol for her discomfort.
[2019-02-02 18:51] VITALS: BP 116/62
--- NOTE | 2019-02-03 10:24 | Discharge Summary ---
General - General Admission date:: 01/30/19 Discharge date: 02/03/19 HPI HPI: She is a 18-year-old 1 now para 1 who was 38+ weeks gestational age. She had increased blood pressure and increasing requirements for blood pressure medicine. She had proteinuria. As result of that we elected to induce her labor. She failed to open her cervix despite Cervidil and oxytocin. As a result of that we diagnosed pelvic disproportion and took her for a primary lower segment transverse section Hospital Course Hospital Course: On January 31, 2019 she underwent a primary lower segment transverse section and delivered a liveborn male child. The baby weighed 7 pounds 11 ounces and was 20 inches long. He had Apgars of 3 at 1 minute and 8 at 5 minutes. She has done well postoperatively and has remained afebrile throughout her hospitalization. She is eating and drinking and ambulating. She is bottlefeeding. Her lochia is normal. She has O+ blood, she is rubella immune and was group B streptococcus negative. She is discharged home to follow-up with me in approximately 2 weeks time. She will continue with her vitamins and iron. She will continue with her labetalol 200 mg twice daily. She was given a prescription for Percocet 5/325 number 30 tablets. Rhogam Administration: Not Indicated Objective Vital signs: Temp Pulse Resp BP Pulse Ox 98.8 F 94 H 18 116/62 98 02/02/19 16:00 02/02/19 16:00 02/02/19 16:00 02/02/19 16:00 02/02/19 16:00 no acute distress DS: Diagnosis - Discharge Diagnosis (1) induced hypertension, delivered, current hospitalization Status: Acute (2) pelvic disproportion delivered Status: Acute Discharge Plan - Patient Discharge Instructions ACTIVITY: No heavy lifting DIET: continue same diet Additional Instructions: NO HEAVY LIFTING OR STRAINING. F/U WITH DR SMITH IN 2 WEEKS Patient Instructions: DI for , Surgical Site Infection - Follow up Plan Disposition: Home, Self-Long-Term Medications: Home Medications Medication Instructions Recorded Confirmed Type 1 tab PO DAILY 06/20/18 01/30/19 History vitamin,calcium,lwrajlhm-sehd-vldax acid tablet Labetalol HCl 100 mg PO BID 01/30/19 01/30/19 History hydrOXYzine pamoate [Vistaril] 25 mg PO QID 01/30/19 01/30/19 History Ferrous Sulfate 325 mg PO DAILY 02/02/19 01/30/19 History Oxycodone HCl/Acetaminophen 1 - 2 tab PO Q4-6H PRN #30 tab 02/03/19 Rx [Percocet 5/325mg tablet] Prescriptions/Medication Reconciliation: New Oxycodone HCl/Acetaminophen [Percocet 5/325mg tablet] 1 - 2 tab PO Q4-6H PRN #30 tab PRN Reason: Severe Pain Continued vitamin,calcium,zutvbfly-wjtx-jsiud acid tablet 1 tab PO DAILY hydrOXYzine pamoate [Vistaril] 25 mg PO QID Labetalol HCl 100 mg PO BID Ferrous Sulfate 325 mg PO DAILY - Problem Reconciliation Problems Reviewed?: Yes
== END 2019-02-03 10:53 | disposition home or self-care (01) | DRG 788 ==
LOC: OB 16:24
PROVIDERS: ADMIT Nurse Practitioner Obstetrics & Gynecology; ATTEND Nurse Practitioner Obstetrics & Gynecology
CPT/HCPCS: J2405

== ENCOUNTER 2019-12-13 19:26 | Emergency (ER) | payer BC, SELFPAY ==
[2019-12-13 19:36] VITALS: BP 116/81; PULSE 82; RESP 16; TEMP 36.7; O2SAT 98; BMI 31.6
[2019-12-13 19:42] LABS: UTC Strep Screen (Rapid) Negative (Negative)
--- NOTE | 2019-12-13 19:53 | HMH.EDUTC ---
[facility] [place] Disposition Clinical Impression: URI (upper respiratory infection) Qualifiers: URI type: unspecified URI Qualified Code(s): J06.9 - Acute upper respiratory infection, unspecified Disposition: Home, Self-Care Condition on Discharge: Good Instructions: Sore Throat, DI for Headache Additional Instructions: *Monitor Temp, Over the counter Motrin or Tylenol as directed/as needed Tylenol every 4 hours and Motrin every 6 hours (as long as your family doctor has told you that you can take it) for fever or pain. and straight to ER if unable to lower temp less than 101.0 after medication given *Warm salt water gargles may help to soothe the throat *Throat Lozenges *Warm fluids like tea with honey may help to soothe the throat *Sleep elevated *Humidifier/Vaporizer *Flonase 2 sprays in each nostril daily but be aware that it may take 2-3 days before you notice improvement Your throat swab was sent for culture. Those results are typically sent to your primary care. Be sure to follow up in 2-3 days with your family doctor/primary care physician if no improvement so they can review those result and treat if necessary. If you don?t have a primary care doctor, I recommend you get one but in the mean time, you will have to return to a walk in clinic Follow up IMMEDIATELY for new or worsening symptoms or no Noticeable improvement over the next 48-72 hours. 911 for difficulty breathing or swallowing Referrals: Venkata Balderas MD [Primary Care Provider] - As needed Time of Disposition: 20:33 Medical Decision Making - Peter Inquiry Pt receiving controlled substance: No Peter was queried for this patient: No Vital Signs: 12/13/19 19:36 Temperature 98.1 F Temperature Source Oral Pulse Rate [Left Brachial] 82 Respiratory Rate 16 Blood Pressure [Left Arm] 116/81 Blood Pressure Mean [Left Arm] 92 Blood Pressure Source [Left Arm] Automatic Cuff Blood Pressure Position [Left Arm] Sitting 02 Sat by Pulse Oximetry 98 Oxygen Delivery Method Room Air - Lab Data Lab results reviewed: Yes: I reviewed the patient's lab results. Lab Results 12/13/19 19:29: Strep Scn Rapid Clinic Negative 12/13/19 19:55: Tst Clinic Negative Orders (Tests/Meds): ED MEDICATIONS Discontinued Medications Generic Name Dose Route Start Last Admin Trade Name Bryant PRN Reason Stop Dose Admin Ceftriaxone Sodium 1 gm 12/13/19 20:05 12/13/19 20:25 Rocephin 1gm Vial IM 12/13/19 20:06 1 gm ONCE ONE Administration Protocol Lidocaine HCl 0 ml 12/13/19 20:05 12/13/19 20:25 Lidocaine 1% 10ml Mdv IM 12/13/19 20:06 2.1 ml ONCE ONE Administration ORDERS Category Date Time Status Strep Screen Confirmation Stat Micro 12/13/19 19:29 Received [facility] [place] HPI - General Stated complaint: Sore throat, headache Time Seen by Provider: 12/13/19 19:53 Mode of Arrival: Ambulatory Source of Information: Patient Limitations: No Limitations Description of Symptoms (Recalled from Triage Doc. by RN): PATIENT C/O SORE THROAT, WEAKNESS, AND HEADACHE X 2 DAYS. NO KNOWN SICK CONTACTS. 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
[2019-12-13 20:01] LABS: UTC Pregnancy Test, Urine Negative (Negative)
[2019-12-13 20:37] VITALS: BP 116/81; PULSE 82; RESP 16; TEMP 36.7; O2SAT 98
== END 2019-12-13 20:39 | disposition home or self-care (01) ==
PROVIDERS: Emergency Provider Nurse Practitioner; PCP Family Medicine
DX: J06.9 Acute upper respiratory infection, unspecified (principal); Z88.1 Allergy status to other antibiotic agents; Z88.2 Allergy status to sulfonamides
CPT/HCPCS: 81025; 87880; 96372; 99201; 99202

== ENCOUNTER → 2019-12-31 15:01 | Outpatient (CLI) | payer BC, SELFPAY ==
[2020-01-02 15:23] LABS: Covid-19 Nasal PCR Sendout Lex NOT DETECTED
== END ==
PROVIDERS: PCP Family Medicine; Visit Provider Family Medicine
DX: Z03.818 Encounter for observation for suspected exposure to other biological agents ruled out (principal)
CPT/HCPCS: U0004

== ENCOUNTER → 2020-03-27 14:23 | Outpatient (CLI) | payer BC, SELFPAY ==
--- NOTE | 2020-03-27 14:37 | ECG_ITS ---
APPROVED REPORT Exam: Resting ECG HR:84 bpm ECG Measurements Heart Rate 84 AXES VT 120 P -8 QRSd 92 QRS 56 QT 376 T 50 QTc 444 Conclusion Normal sinus rhythm Normal ECG Electronically signed by : Hamilton Recinos, 03/30/2020 09:43:57
== END ==
PROVIDERS: PCP Family Medicine; Visit Provider Family Medicine
DX: R07.9 Chest pain, unspecified (principal)
CPT/HCPCS: 93005

== ENCOUNTER 2020-04-11 09:02 | Emergency (ER) | payer BC, SELFPAY ==
[2020-04-11 09:31] VITALS: BP 124/77; PULSE 86; RESP 19; TEMP 36.8; O2SAT 98; BMI 31.4
--- NOTE | 2020-04-11 09:49 | HMH.EDUTC ---
[facility] [place] Disposition Clinical Impression: Viral syndrome Pharyngitis Qualifiers: Pharyngitis/tonsillitis etiology: unspecified etiology Qualified Code(s): J02.9 - Acute pharyngitis, unspecified Disposition: Home, Self-Care Condition on Discharge: Good Instructions: Sore Throat, DI for Strep Throat, Preventing the Spread of Coronavirus Discharge Instructions Additional Instructions: Drink plenty of fluids. Take tylenol for pain or fever. Take the medications as directed. Follow up with your regular doctor. GO TO THE ER FOR ANY WORSENING SYMPTOMS Prescriptions: Amoxicillin [Amoxicillin 500mg Tab] 500 mg PO TID 10 Days #30 tab Transmission Status: Received by [facility] Referrals: Venkata Balderas MD [Primary Care Provider] - Forms: Work/School Release Time of Disposition: 09:55 Medical Decision Making - Medical Records Medical records reviewed: No: I reviewed the patient's medical records. - Peter Inquiry Pt receiving controlled substance: No Vital Signs: 04/11/20 09:31 04/11/20 10:09 Temperature 98.2 F 98.2 F Temperature Source Oral Oral Pulse Rate 86 Pulse Rate [Radial] 86 Respiratory Rate 19 19 Blood Pressure 124/77 Blood Pressure [Right Arm] 124/77 Blood Pressure Mean [Right Arm] 92 Blood Pressure Source Automatic Cuff Blood Pressure Source [Right Arm] Automatic Cuff Blood Pressure Position Sitting Blood Pressure Position [Right Arm] Sitting 02 Sat by Pulse Oximetry 98 Oxygen Delivery Method Room Air Room Air - Lab Data Lab results reviewed: Yes: I reviewed the patient's lab results. Lab Results 04/11/20 10:20: Strep Scn Rapid Clinic Negative Orders (Tests/Meds): ORDERS Category Date Time Status Covid-19 Nasal PCR ([facility]) Routine Lab 04/11/20 09:23 Ordered Strep Screen Confirmation Stat Micro 04/11/20 10:20 Received [facility] [place] HPI - General Stated complaint: sore throat, headache Time Seen by Provider: 04/11/20 09:35 Mode of Arrival: Ambulatory Source of Information: Patient Limitations: No Limitations Description of Symptoms (Recalled from Triage Doc. by RN): sore throat, headache since last night. HEENT Symptoms (Recalled from RN notes): Yes Resp Symptoms (Recalled from RN notes): No Skin Symptoms (Recalled from RN notes): No MS Symptoms (Recalled from RN notes): No Functional Status (Recalled from RN notes): wnl - History of Present Illness Provider Complaint: She states that she has had a head ache for the past 3 days or so. She states that yesterday she started having sore throat, cough and nausea. She denies any known exposure to covid. 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 - Related Data Home Medications Medication Instructions Recorded Confirmed Citalopram Hydrobromide [Celexa] 10 mg PO DAILY 12/13/19 12/13/19 Previous Rx's Medication Instructions Recorded levonorgestrel-ethinyl estradiol 1 tab PO DAILY #28 tab 02/26/20 0.1 mg-20 mcg tablet Amoxicillin [Amoxicillin 500mg Tab] 500 mg PO TID 10 Days #30 tab 04/11/20 Allergies Allergy/AdvReac Type Severity Reaction Status Date / Time azithromycin [AZITHROMYCIN] Allergy Unknown Verified 12/06/19 09:05 Sulfa (Sulfonamide Allergy Unknown Verified 12/06/19 09:05 Antibiotics) [SULFA (SULFONAMIDE ANTIBIOTICS)] prednisone Allergy Verified 12/06/19 09:05 - Worker's Comp Is this a Worker's Comp case?: No [facility] History - Hepatitis A Screen Drug use history?: No High risk sexual behaviors?: No History of sexually transmitted infection?: No Currently employed?: No Childcare worker?: No Do you have indoor plumbing?: Yes Do you have electricity?: Yes Attestation statement:: This patient has been screened for Hepatitis A risk factors. I have reviewed the patient's past medical history: Yes Medical History: Denies:: Anxiety, Asthma, Seizures Other Medical History: Denies: Blood Transfusion Reaction Lateral
[2020-04-11 10:09] VITALS: BP 124/77; PULSE 86; RESP 19; TEMP 36.8; O2SAT 98
[2020-04-11 10:25] LABS: UTC Strep Screen (Rapid) Negative (Negative)
--- NOTE | 2020-04-11 19:52 | PC.NURSE ---
Called patient to notify of Covid results. Stated that Dr. Balderas's office notified her of results already.
== END 2020-04-11 10:10 | disposition home or self-care (01) ==
PROVIDERS: Emergency Provider Nurse Practitioner Family; PCP Family Medicine
DX: U07.1 COVID-19 (principal)
CPT/HCPCS: 87880; 99202; U0003

== ENCOUNTER → 2020-10-02 18:06 | Outpatient (CLI) | payer BC, SELFPAY ==
[2020-10-02 19:22] LABS: HCG,Quantitative 8 mIU/ml (0-5.42)
== END ==
PROVIDERS: Visit Provider Obstetrics & Gynecology
DX: Z34.90 Encounter for supervision of normal pregnancy, unspecified, unspecified trimester (principal)
CPT/HCPCS: 36415; 84702

== ENCOUNTER → 2020-10-04 08:50 | Outpatient (CLI) | payer BC, SELFPAY ==
[2020-10-04 11:17] LABS: HCG,Quantitative 25 mIU/ml (0-5.42)
== END ==
PROVIDERS: Visit Provider Obstetrics & Gynecology
DX: Z34.90 Encounter for supervision of normal pregnancy, unspecified, unspecified trimester (principal)
CPT/HCPCS: 36415; 84702

== ENCOUNTER → 2020-10-10 07:09 | Outpatient (CLI) | payer BC, SELFPAY ==
[2020-10-10 14:30] LABS: HCG,Quantitative 722 mIU/ml (0-5.42)
== END ==
PROVIDERS: Visit Provider Obstetrics & Gynecology
DX: Z34.90 Encounter for supervision of normal pregnancy, unspecified, unspecified trimester (principal)
CPT/HCPCS: 36415; 84702

== ENCOUNTER 2020-10-21 19:12 | Emergency (ER) | payer BC, SELFPAY ==
[2020-10-21 19:24] VITALS: BP 139/91; PULSE 80; RESP 17; TEMP 36.9; O2SAT 100; BMI 31.4
--- NOTE | 2020-10-21 19:35 | US_ITS ---
PROCEDURE INFORMATION: Exam: US , Transvaginal Exam date and time: 10/21/2020 7:35 PM Age: 20 years old Clinical indication: Pain; Other: Just having low pelvis cramping; Gestational age or lmp: Lmp 09/11/2020; ; Patient HX: PT having low pelvis cramping tonight no bleeding; Additional info: Abd cramping TECHNIQUE: Imaging protocol: Real-time transvaginal obstetrical ultrasound of the maternal pelvis with image documentation. Transvaginal imaging was used for better evaluation of the fetus, adnexa, and/or cervix. COMPARISON: US OB BPP W/FET-MAT S/D 01/24/2019 12:42 PM FINDINGS: Gestation: Single viable intrauterine gestation 6 weeks and 0 days. heart rate: heart rate 136 bpm. MATERNAL: Right adnexa: Tiny cyst in the right ovary. Right ovary measures 3.2 x 2.4 x 2.4 cm. Left adnexa: Left ovary shows normal vascularity. No mass. Left ovary measures 2.4 x 1.4 x 1.5 cm. IMPRESSION: Single viable intrauterine gestation 6 weeks 0 days and heart rate 136 bpm. No abnormalities noted at this time.
[2020-10-21 19:43] LABS: Microscopic, Urine URINE MICROSCOPIC (MICROSCOPIC)
[2020-10-21 19:45] LABS: Basophils % 0.3 % (0.1-2.0); Eosinophils # 0.1 K/mm3 (0.0-0.4); Hematocrit 39.7 % (37.0-47.0); Hemoglobin 12.9 g/dL (12.2-16.2); Lymphocytes # 2.9 K/mm3 (0.7-4.5); Lymphocytes % 32.5 % (10-50); Mean Corpuscular HGB Conc 32.4 g/dL (31.8-35.4); Mean Corpuscular Hemoglobin 29.3 pg (27.0-31.2); Mean Corpuscular Volume 90.4 fl (81-99); Mean Platelet Volume 7.5 fl (7.4-10.4); Monocytes # 0.6 K/mm3 (0.1-1.0); Monocytes % 6.8 % (1.7-9.3); Neutrophils # 5.3 K/mm3 (1.8-7.8); Neutrophils % 59.5 % (37.0-80.0); Platelet Count 298 K/mm3 (142-424); Red Blood Count 4.39 M/mm3 (4.20-5.40); White Blood Count 8.8 K/mm3 (4.8-10.8)
--- NOTE | 2020-10-21 19:46 | HMH.EDGENADL ---
ED Disposition Condition on Discharge: Good - Critical Care Critical Care Time: No <Bhanu Montes - Last Filed: 10/21/20 20:03> <Markel Rivas - Last Filed: 10/21/20 20:54> Clinical Impression: Pelvic pain affecting Qualifiers: Trimester: first trimester Qualified Code(s): O26.891 - Other specified related conditions, first trimester; R10.2 - Pelvic and perineal pain Diarrhea Qualifiers: Diarrhea type: unspecified type Qualified Code(s): R19.7 - Diarrhea, unspecified Qualifiers: Weeks of gestation: less than 8 weeks Qualified Code(s): Z3A.01 - Less than 8 weeks gestation of Disposition: Home, Self-Care Instructions: DI for Acute Abdominal Pain, DI for -- Discomforts and Remedies Additional Instructions: call pcp and ob in am Referrals: Venkata Balderas MD [Primary Care Provider] - Dee Dee Gutiérrez MD [Staff Physician] - Attestation: On 10/21/20, the high probability of a clinically significant, sudden or life threatening deterioration of the following system(s) required my full and direct attention, intervention and personal management. The time I documented below is in addition to time spent performing reported procedures but includes the following listed in this critical care notation. Medical Decision Making - Medical Records Medical records reviewed: Yes: I reviewed the patient's medical records. MR Comment: Reviewed recent beta-hCG results, most recent was 722 on 10/10/2020 - Peter Inquiry Pt receiving controlled substance: No - Lab Data Result diagrams: 10/21/20 19:32 <HarishevangelinaBhanu - Last Filed: 10/21/20 20:03> - Lab Data Lab results reviewed: Yes: I reviewed the patient's lab results. Result diagrams: 10/21/20 19:32 10/21/20 19:32 - US Data US Images: Pelvis ED US Reviewed: Yes: I have viewed radiologist's interpretation <Markel Rivas - Last Filed: 10/21/20 20:54> Vital Signs: 10/21/20 19:24 10/21/20 20:00 Temperature 98.5 F Temperature Source Oral Pulse Rate 81 Pulse Rate [Right Brachial] 80 Respiratory Rate 17 16 Blood Pressure 112/69 Blood Pressure [Right Arm] 139/91 H Blood Pressure Mean 79 Blood Pressure Mean [Right Arm] 107 Blood Pressure Source [Right Arm] Automatic Cuff Blood Pressure Position [Right Arm] Sitting 02 Sat by Pulse Oximetry 100 100 Oxygen Delivery Method Room Air - Lab Data Lab Results 10/21/20 19:25: Urine Color Yellow, Urine Appearance Clear, Urine pH 6.5, Ur Specific [place] 1.015, Urine Protein Negative, Urine Glucose (UA) Negative, Urine Ketones Negative, Urine Blood Trace-i, Urine Nitrate Negative, Urine Bilirubin Negative, Urine Urobilinogen 0.2, Ur Leukocyte Esterase Negative, Urine RBC None, Urine WBC 5-10, Ur Squamous Epith Cells 10-20, Urine Bacteria Trace 10/21/20 19:25: Urine HCG, Qual Positive 10/21/20 19:32: WBC 8.8, RBC 4.39, Hgb 12.9, Hct 39.7, MCV 90.4, MCH 29.3, MCHC 32.4, RDW 13.0, Plt Count 298, MPV 7.5, Neut % (Auto) 59.5, Lymph % (Auto) 32.5, Wetzel % (Auto) 6.8, Eos % (Auto) 1.0, Baso % (Auto) 0.3, Neut # (Auto) 5.3, Lymph # (Auto) 2.9, Wetzel # (Auto) 0.6, Eos # (Auto) 0.1, Baso # (Auto) 0.0 10/21/20 19:32: Sodium 137, Potassium 3.9, Chloride 102, Carbon Dioxide 25, Anion Gap 13.9, BUN 9, Creatinine 0.50 L, Estimated Creat Clear 246, Estimated GFR 154, Est GFR ( Amer) 187, Glucose 85, Calcium 10.1, HCG, Quant 90526 H Orders (Tests/Meds): ED MEDICATIONS Generic Name Dose Route Start Last Admin Trade Name Freq PRN Reason Stop Dose Admin Sodium Chloride 1,000 mls @ 999 mls/hr 10/21/20 19:45 10/21/20 19:48 Sod Chlor 0.9% 1000ml Bag IV 10/21/20 20:45 999 mls/hr .Q1H1M VONDA Administration ORDERS Category Date Time Status US transvaginal Stat Exams 10/21/20 19:35 Ordered - US Data Findings Narrative: iup -viable (Markel Rivas) Medical Decision Narrative: 8:00 PM: At shift change, I have discussed the simone
[2020-10-21 19:55] LABS: Urine Pregnancy, HCG Qual. Positive (Negative)
[2020-10-21 19:58] LABS: Chloride 102 mmol/L (98-107); Sodium 137 mmol/L (136-145)
[2020-10-21 19:59] LABS: Potassium 3.9 mmoL/L (3.5-5.1)
[2020-10-21 20:00] VITALS: BP 112/69; PULSE 81; RESP 16; O2SAT 100
[2020-10-21 20:01] LABS: Blood Urea Nitrogen 9 mg/dl (7-17); Creatinine Clearance Estimated 246 mL/min (50-200); Estimated Glomerular Filt Rate 154 ml/min (>60); GFR (African American) 187 ML/MIN (>60)
[2020-10-21 20:01] LABS: Appearance,Urine CLEAR (Clear); Bacteria,Urine Trace /lpf; Bilirubin,Urine Negative (Negative); Blood, Urine TRACE-I (Negative); Color,Urine YELLOW (Yellow); Glucose,Urine (UA) Negative (Negative); Ketones,Urine Negative (Negative); Leukocyte Esterase,Urine Negative (Negative); Nitrate,Urine Negative (Negative); PH,Urine 6.5 (5.0-8.5); Protein,Urine Negative (Negative); Specific Gravity, Urine 1.015 (1.005-1.030); Urobilinogen,Urine 0.2 EU/dl (0.2)
[2020-10-21 20:02] LABS: Anion Gap 13.9 mEq/L (5-15); Calcium 10.1 mg/dl (8.4-10.2); Carbon Dioxide 25 mmol/L (22.0-30.0); Glucose 85 mg/dl (74-100)
[2020-10-21 20:46] LABS: HCG,Quantitative 23998 mIU/ml (0-5.42)
[2020-10-21 21:06] VITALS: BP 114/76; PULSE 73; RESP 18; TEMP 36.8; O2SAT 99
[2020-10-21 21:11] VITALS: BP 127/72; PULSE 86; RESP 16; TEMP 36.6; O2SAT 100
== END 2020-10-21 21:12 | disposition home or self-care (01) ==
PROVIDERS: Emergency Provider Emergency Medicine; PCP Family Medicine
DX: O26.891 Other specified pregnancy related conditions, first trimester (principal); R19.7 Diarrhea, unspecified; Z3A.01 Less than 8 weeks gestation of pregnancy
CPT/HCPCS: 76817; 80048; 81001; 81025; 84702; 85025; 96365; 99283

== ENCOUNTER → 2020-10-28 12:44 | Outpatient (CLI) | payer BC, SELFPAY ==
--- NOTE | 2020-10-28 12:44 | US_ITS ---
PROCEDURE: US OB <= 14 WEEKS FETUS CLINICAL INDICATION: Dates Evaluate gestational age COMPARISON: US US OB TRANSVAGINAL from 10/21/2020 FINDINGS: An intrauterine gestational sac is present with a pole with a crown-rump length of 1.1cm correlating to gestational age of 7weeks 2days. heart tones are present with an FHR of 143bpm. Yolk sac is noted. Unremarkable adnexa IMPRESSION: Live IUP at 7 weeks 2 days Estimated due date by Ultrasound is 06/14/2021 Dictated by: Joe Watts MD 10/28/2020 14:50 Joe Watts MD in OV 10/28/2020 14:50
== END ==
PROVIDERS: PCP Family Medicine; Visit Provider Obstetrics & Gynecology
DX: Z34.90 Encounter for supervision of normal pregnancy, unspecified, unspecified trimester (principal)
CPT/HCPCS: 76801

== ENCOUNTER → 2020-11-27 10:17 | Outpatient (CLI) | payer BC, SELFPAY ==
[2020-11-27 10:37] LABS: Basophils % 0.4 % (0.1-2.0); Eosinophils # 0.1 K/mm3 (0.0-0.4); Eosinophils % 0.8 % (0.1-12.0); Hematocrit 36.7 % (37.0-47.0); Hemoglobin 12.3 g/dL (12.2-16.2); Lymphocytes # 1.6 K/mm3 (0.7-4.5); Lymphocytes % 22.7 % (10-50); Mean Corpuscular HGB Conc 33.6 g/dL (31.8-35.4); Mean Corpuscular Hemoglobin 30.4 pg (27.0-31.2); Mean Corpuscular Volume 90.4 fl (81-99); Mean Platelet Volume 7.8 fl (7.4-10.4); Monocytes # 0.4 K/mm3 (0.1-1.0); Monocytes % 5.7 % (1.7-9.3); Neutrophils # 4.8 K/mm3 (1.8-7.8); Neutrophils % 70.5 % (37.0-80.0); Platelet Count 249 K/mm3 (142-424); Red Blood Count 4.06 M/mm3 (4.20-5.40); Red Cell Distribution Width 12.9 % (11.5-17.5); White Blood Count 6.8 K/mm3 (4.8-10.8)
[2020-11-28 07:09] LABS: HIV Screen 4th Generation wRfx Non Reactive (Non Reactive); Hepatitis B Surface Antigen Negative (Negative); Hepatitis C Antibody <0.1 s/co ratio (0.0-0.9)
[2020-11-28 07:11] LABS: Rubella Antibodies, IgG 1.35 index (Immune >0.99)
[2020-11-28 12:23] LABS: Rapid Plasma Reagin Ab Titer Non Reactive (NonRea<1:1)
== END ==
PROVIDERS: Visit Provider Obstetrics & Gynecology
DX: Z34.90 Encounter for supervision of normal pregnancy, unspecified, unspecified trimester (principal)
CPT/HCPCS: 36415; 85025; 86592; 86703; 86762; 86850; 87340; 87380; G0432

== ENCOUNTER → 2021-01-22 12:48 | Outpatient (CLI) | payer BC, SELFPAY ==
--- NOTE | 2021-01-22 12:48 | US_ITS ---
PROCEDURE: US OB >= 14 WEEKS FETUS CLINICAL INDICATION: OB complete COMPARISON: US US OB <= 14 WEEKS FETUS from 10/28/2020 FINDINGS: There is a single live fetus present which is in cephalic position. Cervix is closed and measures 4 cm. heart body motion noted. Placenta is posterior and grade 1 Complete survey performed and was unremarkable on the submitted images as in PACS. No discrete anomalies identified on survey imaging by technologist. Active fetus. Three-vessel cord with satisfactory umbilical cord insertion. 4- chamber heart noted. Survey of brain & ventricles Unremarkable. Face and neck survey unremarkable. Diaphragm and chest views unremarkable. Abdomen: Both kidneys noted and unremarkable. Stomach noted and satisfactory. Spine: Survey of the spine satisfactory with no anomalies identified nor imaged. Both arms and legs noted. Amniotic Fluid: Adequate. Maternal adnexa: No significant findings. Measurements: Average ultrasound age 19weeks 5days. Gestational Age 19weeks 5days Estimated due date by ultrasound age 0106/13/2021. Estimated weight 310g BPD = 19weeks 5days OFD = 19weeks 4days HC = 18weeks 6days AC = 19weeks 5days FL = 20weeks 1day Growth Percentile= 55% Heart Rate = 150bpm Cerebellum = 19weeks 4days Humerus = 19weeks 6days HC/AC is 1.12 CI is 0.8 FL/BPD is 0.71 FL/AC is 0.23 IMPRESSION: Live IUP in cephalic presentation with an average ultrasound age of 19 weeks and 5 days. No obvious anomalies. Please see above for detail. Dictated by: Joe Watts MD 01/22/2021 16:55 Joe Watts MD in OV 01/22/2021 16:55
== END ==
PROVIDERS: PCP Family Medicine; Visit Provider Obstetrics & Gynecology
DX: Z34.90 Encounter for supervision of normal pregnancy, unspecified, unspecified trimester (principal)
CPT/HCPCS: 76805

== ENCOUNTER → 2021-02-14 12:10 | Outpatient (CLI) | payer BC, OTHER, SELFPAY ==
[2021-02-14 12:50] LABS: Adenovirus,PCR Not Detected (NotDetected); Bordetella Pertussis Not Detected (NotDetected); Chlamydophila Pneumoniae, PCR Not Detected (NotDetected); Coronavirus 19, PCR Not Detected (NotDetected); Coronavirus 229E Not Detected (NotDetected); Coronavirus NL63 Not Detected (NotDetected); Coronavirus OC43 Not Detected (NotDetected); Coronovirus HKU1,PCR Not Detected (NotDetected); Human Metapneumovirus Not Detected (NotDetected); Influenza A, PCR Not Detected (NotDetected); Influenza AH1, 2009 Not Detected (NotDetected); Influenza AH1, PCR Not Detected (NotDetected); Influenza AH3,PCR Not Detected (NotDetected); Influenza B, PCR Not Detected (NotDetected); Mycoplasma Pneumoniae, PCR Not Detected (NotDetected); Parainfluenza 1, PCR Not Detected (NotDetected); Parainfluenza 2, PCR Not Detected (NotDetected); Parainfluenza 3, PCR Not Detected (NotDetected); Parainfluenza 4, PCR Not Detected (NotDetected); Respiratory Syncytial Virus Not Detected (NotDetected)
[2021-02-14 13:09] LABS: Basophils % 0.4 % (0.1-2.0); Eosinophils # 0.2 K/mm3 (0.0-0.4); Eosinophils % 1.9 % (0.1-12.0); Hematocrit 34.5 % (37.0-47.0); Hemoglobin 11.6 g/dL (12.2-16.2); Lymphocytes # 1.3 K/mm3 (0.7-4.5); Lymphocytes % 14.6 % (10-50); Mean Corpuscular HGB Conc 33.5 g/dL (31.8-35.4); Mean Corpuscular Hemoglobin 31.5 pg (27.0-31.2); Mean Corpuscular Volume 93.9 fl (81-99); Mean Platelet Volume 8.8 fl (7.4-10.4); Monocytes # 0.6 K/mm3 (0.1-1.0); Monocytes % 6.3 % (1.7-9.3); Neutrophils % 76.9 % (37.0-80.0); Platelet Count 234 K/mm3 (142-424); Red Blood Count 3.67 M/mm3 (4.20-5.40); White Blood Count 9.2 K/mm3 (4.8-10.8)
[2021-02-14 17:12] LABS: Rhinovirus/Enterovirus Detected (NotDetected)
== END ==
PROVIDERS: PCP Family Medicine; Visit Provider Family Medicine
DX: Z20.822 Contact with and (suspected) exposure to COVID-19 (principal); B34.1 Enterovirus infection, unspecified
CPT/HCPCS: 85025; 87581; 87633; 87798

== ENCOUNTER → 2021-03-04 08:11 | Outpatient (CLI) | payer OTHER, SELFPAY ==
[2021-03-04 08:45] LABS: Glucose,Fasting 83 mg/dl (74-100)
[2021-03-04 10:53] LABS: Glucose 1 Hour 141 mg/dL (74-100)
== END ==
PROVIDERS: Visit Provider Obstetrics & Gynecology
DX: Z34.90 Encounter for supervision of normal pregnancy, unspecified, unspecified trimester (principal)
CPT/HCPCS: 36415; 82951

== ENCOUNTER 2021-03-20 09:11 | Outpatient (CLI) | payer OTHER, SELFPAY ==
[2021-03-20 09:13] VITALS: BMI 35.6
[2021-03-20 09:27] LABS: Microscopic, Urine URINE MICROSCOPIC (MICROSCOPIC)
[2021-03-20 09:37] VITALS: BP 115/66; PULSE 119; RESP 20; TEMP 36.8; O2SAT 97
[2021-03-20 09:42] LABS: Appearance,Urine SL CLOUDY (Clear); Bilirubin,Urine Negative (Negative); Blood, Urine Negative (Negative); Color,Urine YELLOW (Yellow); Glucose,Urine (UA) Negative (Negative); Ketones,Urine Negative (Negative); Leukocyte Esterase,Urine Negative (Negative); Nitrate,Urine Negative (Negative); PH,Urine 7.5 (5.0-8.5); Protein,Urine Negative (Negative); Specific Gravity, Urine 1.015 (1.005-1.030); Urobilinogen,Urine 0.2 EU/dl (0.2)
[2021-03-20 09:49] LABS: Benzodiazepines Screen,Urine Negative ng/ml (<200)
[2021-03-20 09:50] LABS: Amphetamine/Metha Screen,Urine Negative ng/ml (<1000)
[2021-03-20 09:51] LABS: Barbiturates Screen,Urine Negative ng/ml (<200); Methadone Screen,Urine Negative ng/ml (<300)
[2021-03-20 09:52] LABS: Cannabinoid Screen,Urine Negative ng/ml (<50)
[2021-03-20 09:53] LABS: Cocaine Screen,Urine Negative ng/ml (<300); Opiate Screen,Urine Negative ng/ml (<300)
[2021-03-20 09:54] LABS: Phencyclidine Screen,Urine Negative ng/ml (<25)
[2021-03-20 09:55] LABS: Fetal Membrane Rupture (Rapid) Negative (Negative)
== END 2021-03-20 10:20 | disposition home or self-care (01) ==
LOC: OBOUT 09:12 → OB 09:13
PROVIDERS: PCP Family Medicine; Visit Provider Obstetrics & Gynecology
DX: O26.892 Other specified pregnancy related conditions, second trimester (principal); Z3A.27 27 weeks gestation of pregnancy
CPT/HCPCS: 59025; 80305; 81001; 84112; G0463

== ENCOUNTER 2021-04-17 20:11 | Outpatient (CLI) | payer OTHER, SELFPAY ==
[2021-04-17 20:20] VITALS: BMI 35.5
[2021-04-17 20:46] VITALS: BP 110/69; PULSE 95; RESP 20; TEMP 36.7; O2SAT 100; BMI 35.5
[2021-04-17 21:33] LABS: Amphetamine/Metha Screen,Urine Negative ng/ml (<1000)
[2021-04-17 21:34] LABS: Barbiturates Screen,Urine Negative ng/ml (<200); Benzodiazepines Screen,Urine Negative ng/ml (<200)
[2021-04-17 21:35] LABS: Cannabinoid Screen,Urine Negative ng/ml (<50); Cocaine Screen,Urine Negative ng/ml (<300)
[2021-04-17 21:36] LABS: Methadone Screen,Urine Negative ng/ml (<300)
[2021-04-17 21:37] LABS: Opiate Screen,Urine Negative ng/ml (<300); Phencyclidine Screen,Urine Negative ng/ml (<25)
[2021-04-20 11:05] LABS: Microscopic, Urine URINE MICROSCOPIC (MICROSCOPIC)
[2021-04-20 11:26] LABS: Appearance,Urine CLOUDY (Clear); Bilirubin,Urine Negative (Negative); Blood, Urine TRACE-I (Negative); Color,Urine STRAW (Yellow); Glucose,Urine (UA) Negative (Negative); Ketones,Urine Negative (Negative); Leukocyte Esterase,Urine Negative (Negative); Nitrate,Urine Negative (Negative); Protein,Urine Negative (Negative); Specific Gravity, Urine >= 1.030 (1.005-1.030); Urobilinogen,Urine 0.2 EU/dl (0.2)
[2021-04-20 11:49] LABS: Bacteria,Urine Trace /lpf; WBC,Urine Occasional #/hpf (0-3)
== END 2021-04-17 21:13 | disposition home or self-care (01) ==
LOC: OBOUT 20:13 → OB 20:14
PROVIDERS: PCP Obstetrics & Gynecology; Visit Provider Obstetrics & Gynecology
DX: O36.8130 Decreased fetal movements, third trimester, not applicable or unspecified (principal); Z3A.31 31 weeks gestation of pregnancy
CPT/HCPCS: 80305; 81001; G0463

== ENCOUNTER 2021-04-30 13:57 | Outpatient (CLI) | payer OTHER, SELFPAY ==
[2021-04-30 14:14] VITALS: BMI 35.8
[2021-04-30 14:24] VITALS: BMI 35.8
[2021-04-30 14:28] VITALS: BP 116/68; PULSE 114; RESP 17; TEMP 36.8; O2SAT 96
[2021-04-30 14:51] LABS: Microscopic, Urine URINE MICROSCOPIC (MICROSCOPIC)
[2021-04-30 14:56] LABS: Appearance,Urine CLEAR (Clear); Bilirubin,Urine Negative (Negative); Blood, Urine Negative (Negative); Color,Urine YELLOW (Yellow); Glucose,Urine (UA) Negative (Negative); Ketones,Urine Negative (Negative); Leukocyte Esterase,Urine Negative (Negative); Nitrate,Urine Negative (Negative); PH,Urine 6.5 (5.0-8.5); Protein,Urine Negative (Negative); Specific Gravity, Urine 1.025 (1.005-1.030); Urobilinogen,Urine 0.2 EU/dl (0.2)
[2021-04-30 15:06] LABS: Amphetamine/Metha Screen,Urine Negative ng/ml (<1000)
[2021-04-30 15:07] LABS: Barbiturates Screen,Urine Negative ng/ml (<200)
[2021-04-30 15:08] LABS: Benzodiazepines Screen,Urine Negative ng/ml (<200); Cannabinoid Screen,Urine Negative ng/ml (<50)
[2021-04-30 15:09] LABS: Cocaine Screen,Urine Negative ng/ml (<300)
[2021-04-30 15:10] LABS: Methadone Screen,Urine Negative ng/ml (<300); Opiate Screen,Urine Negative ng/ml (<300)
[2021-04-30 15:11] LABS: Phencyclidine Screen,Urine Negative ng/ml (<25)
[2021-04-30 15:19] LABS: RBC,Urine Occasional #/hpf (0-3)
[2021-04-30 15:20] LABS: Bacteria,Urine 1+ /lpf
== END 2021-04-30 17:10 | disposition home or self-care (01) ==
LOC: OBOUT 13:59 → OB 14:01
PROVIDERS: PCP Family Medicine; Visit Provider Obstetrics & Gynecology
DX: O47.03 False labor before 37 completed weeks of gestation, third trimester (principal); Z3A.33 33 weeks gestation of pregnancy
CPT/HCPCS: 59025; 80305; 81001; 96365; G0463

== ENCOUNTER → 2021-05-05 10:21 | Outpatient (CLI) | payer OTHER, SELFPAY ==
--- NOTE | 2021-05-05 10:21 | US_ITS ---
PROCEDURE: US OB FOLLOW UP CLINICAL INDICATION: Growth and BRANDON FINDINGS: The following parameters are obtained: Average ultrasound age is Average 35weeks 3days Estimated due date by ultrasound is 06/06/2021. Estimated weight is 2,601g. This is 70th percentile BPD: 36weeks 1day OFD: 36 weeks 1 day HC: 35weeks 5days AC: 35weeks 1day FL: 34weeks 5days heart rate: 147bpm bpm. HC/AC: 1.02 Cephalic index: 0.8 FL/BPD: 0.76 FL/AC: 0.22 Amniotic fluid index: 16.72cm The femur length is 34weeks 5days Fetus is in cephalic presentation. The placenta is posterior and 1. Cervix is closed measuring approximately 4 cm in IMPRESSION: Live IUP in cephalic presentation with an average ultrasound age of 35 weeks 3 days with an estimated weight of 2601 g which is 70th percentile. Normal BRANDON Dictated by: Joe Watts MD 05/05/2021 17:18 Joe Watts MD in OV 05/05/2021 17:18
== END ==
PROVIDERS: PCP Family Medicine; Visit Provider Obstetrics & Gynecology
DX: O36.5990 Maternal care for other known or suspected poor fetal growth, unspecified trimester, not applicable or unspecified (principal)
CPT/HCPCS: 76816

== ENCOUNTER → 2021-05-14 16:21 | Outpatient (CLI) | payer OTHER, SELFPAY | PROVIDERS: Visit Provider Obstetrics & Gynecology | DX: Z34.90 Encounter for supervision of normal pregnancy, unspecified, unspecified trimester (principal) | CPT/HCPCS: 86403 ==

== ENCOUNTER 2021-06-05 11:15 | Outpatient (CLI) | payer OTHER, SELFPAY ==
[2021-06-05 11:28] VITALS: BMI 36.9
[2021-06-05 11:46] LABS: Microscopic, Urine URINE MICROSCOPIC (MICROSCOPIC)
[2021-06-05 11:48] LABS: Appearance,Urine CLEAR (Clear); Bilirubin,Urine Negative (Negative); Blood, Urine Negative (Negative); Color,Urine YELLOW (Yellow); Glucose,Urine (UA) Negative (Negative); Ketones,Urine Negative (Negative); Leukocyte Esterase,Urine Negative (Negative); Nitrate,Urine Negative (Negative); Protein,Urine Negative (Negative); Specific Gravity, Urine 1.025 (1.005-1.030); Urobilinogen,Urine 0.2 EU/dl (0.2)
[2021-06-05 12:00] LABS: Benzodiazepines Screen,Urine Negative ng/ml (<200)
[2021-06-05 12:01] VITALS: BMI 36.9
[2021-06-05 12:01] LABS: Amphetamine/Metha Screen,Urine Negative ng/ml (<1000)
[2021-06-05 12:02] LABS: Barbiturates Screen,Urine Negative ng/ml (<200); Cannabinoid Screen,Urine Negative ng/ml (<50)
[2021-06-05 12:03] LABS: Cocaine Screen,Urine Negative ng/ml (<300)
[2021-06-05 12:04] LABS: Methadone Screen,Urine Negative ng/ml (<300); Opiate Screen,Urine Negative ng/ml (<300)
[2021-06-05 12:05] LABS: Phencyclidine Screen,Urine Negative ng/ml (<25)
== END 2021-06-05 13:00 | disposition home or self-care (01) ==
LOC: OBOUT 11:18 → OB 11:19
PROVIDERS: PCP Family Medicine; Visit Provider Nurse Practitioner Obstetrics & Gynecology
DX: O60.03 Preterm labor without delivery, third trimester (principal); Z3A.38 38 weeks gestation of pregnancy
CPT/HCPCS: 59025; 80305; 81001; G0463

== ENCOUNTER → 2021-06-09 14:48 | Outpatient (CLI) | payer OTHER, SELFPAY ==
[2021-06-09 15:09] LABS: Basophils # 0.2 K/mm3 (0-0.2); Basophils % 2.1 % (0.1-2.0); Eosinophils # 0.1 K/mm3 (0.0-0.4); Eosinophils % 0.7 % (0.1-12.0); Hematocrit 36.7 % (37.0-47.0); Hemoglobin 12.2 g/dL (12.2-16.2); Lymphocytes # 1.5 K/mm3 (0.7-4.5); Lymphocytes % 18.4 % (10-50); Mean Corpuscular HGB Conc 33.2 g/dL (31.8-35.4); Mean Corpuscular Hemoglobin 31.8 pg (27.0-31.2); Mean Corpuscular Volume 95.7 fl (81-99); Mean Platelet Volume 9.4 fl (7.4-10.4); Monocytes # 0.4 K/mm3 (0.1-1.0); Monocytes % 4.6 % (1.7-9.3); Neutrophils % 74.3 % (37.0-80.0); Platelet Count 210 K/mm3 (142-424); Red Blood Count 3.83 M/mm3 (4.20-5.40); Red Cell Distribution Width 14.8 % (11.5-17.5)
[2021-06-09 16:58] LABS: Alanine Aminotransferase 12 U/L (12-78); Albumin Level 3.4 g/dl (3.5-5.0); Albumin/Globulin Ratio 1.3 (1.1-1.8); Alkaline Phosphatase 121 U/L (38-126); Anion Gap 12.5 mEq/L (5-15); Aspartate Amino Transferase 23 U/L (14-36); Bilirubin,Total 0.2 mg/dl (0.2-1.3); Blood Urea Nitrogen 9 mg/dl (7-17); Calcium 8.8 mg/dl (8.4-10.2); Carbon Dioxide 21 mmol/L (22.0-30.0); Chloride 102 mmol/L (98-107); Estimated Glomerular Filt Rate 198 ml/min (>60); GFR (African American) 239 ML/MIN (>60); Globulin 2.7 g/dL (1.3-3.2); Glucose 148 mg/dl (74-100); Potassium 3.5 mmoL/L (3.5-5.1); Sodium 132 mmol/L (136-145); Total Protein,Serum 6.1 g/dl (6.3-8.2)
== END ==
PROVIDERS: Visit Provider Obstetrics & Gynecology
DX: Z34.90 Encounter for supervision of normal pregnancy, unspecified, unspecified trimester (principal)
CPT/HCPCS: 36415; 80053; 85025; 86850; C9803; U0003; U0005

== ENCOUNTER 2021-06-11 05:01 | Inpatient (IN) | payer OTHER, SELFPAY ==
[2021-06-11] VITALS (7 sets, daily range): BP systolic 114–132; BP diastolic 62–75; PULSE 67–85; RESP 14–18; TEMP 36.7–37.2; O2SAT 100; BMI 37.3
[2021-06-11 05:40] LABS: Coronavirus 19, PCR Not Detected (NotDetected); Influenza A, PCR Not Detected (NotDetected); Influenza B, PCR Not Detected (NotDetected)
[2021-06-11 05:40] LABS: Microscopic, Urine URINE MICROSCOPIC (MICROSCOPIC)
[2021-06-11 05:48] LABS: Appearance,Urine SL CLOUDY (Clear); Bilirubin,Urine Negative (Negative); Blood, Urine Negative (Negative); Color,Urine YELLOW (Yellow); Glucose,Urine (UA) Negative (Negative); Ketones,Urine Negative (Negative); Leukocyte Esterase,Urine Negative (Negative); Nitrate,Urine Negative (Negative); Protein,Urine Negative (Negative); Urobilinogen,Urine 0.2 EU/dl (0.2)
[2021-06-11 05:55] LABS: Bacteria,Urine 1+ /lpf; Mucus,Urine 3+ /lpf; Squamous Epithelial Cell,Urine 20-50 #/hpf (0-5); WBC,Urine Occasional #/hpf (0-3)
[2021-06-11 05:58] LABS: Amphetamine/Metha Screen,Urine Negative ng/ml (<1000)
[2021-06-11 05:59] LABS: Barbiturates Screen,Urine Negative ng/ml (<200)
[2021-06-11 06:00] LABS: Benzodiazepines Screen,Urine Negative ng/ml (<200); Cannabinoid Screen,Urine Negative ng/ml (<50)
[2021-06-11 06:01] LABS: Cocaine Screen,Urine Negative ng/ml (<300); Methadone Screen,Urine Negative ng/ml (<300)
[2021-06-11 06:02] LABS: Opiate Screen,Urine Negative ng/ml (<300)
[2021-06-11 06:03] LABS: Phencyclidine Screen,Urine Negative ng/ml (<25)
--- NOTE | 2021-06-11 07:01 | HMH.ANESCL ---
[facility] Anesthesia Checklist - Patient Identification Patient Identification: Arm Band - Structural Data Admitted From: Home Planned Operative Procedure/s: Repeat C/S Consent for Planned Operative Procedure(s) Verified: Yes - NPO Status Verified Time NPO: 00:00 - Additional verifications Anesthesia Reactions: No Hx Blood Transfusions: No Blood Transfusion Reaction: No - Airway Assessment C-Spine Mobility Assessed: Yes TMJ Mobility Assessed: Yes Dentition: Good Dentition - Neurological Assessment Level of Consciousness: Awake Hx Seizures: No Numbness or tingling in extremities: No - Anesthesia Plan Anesthesia Risk discussed: Yes Anesthesia Plan: Verified ASA Class: II Anesthesia Type: Spinal [facility] History I have reviewed the patient's past medical history: Yes Medical History: Reports:: Anxiety, Depression Denies:: Asthma, Seizures *Have you ever received a pneumonia vaccine?: No *Have you received a flu vaccine this season?: Yes Other Medical History: Denies: Blood Transfusion Reaction Anesthesia experience/problems:: None Laterality Cases: Bilateral: Myringotomy (Ear Tubes), Tonsillectomy Other Surgeries: Yes: Amputation: No Fractures: No - *Social History Smoking Status: Never smoker Alcohol Intake: never Alcohol Intake Frequency:: holidays/special occasions only Substance Use Type: denies use *Occupational Status:: employed Housing: house *Travel in the last 8 weeks: None - Psychiatric History Pschychiatric History:: Denies:: Anxiety Family Hx:: Unable to obtain [employer] history: Spontaneous Para: 1
--- NOTE | 2021-06-11 09:03 | P.PN_ITS ---
[facility] Anesthesia Record Part I Intake, IV Amount: 1,500 Estimated blood loss (mL): 700 Urine output (mL): 300 Blood Pressure: 116/62 SaO2: 100 Pulse Rate: 67 Respiratory Rate: 15 Temperature: 98.9 F Patient is:: Awake Stable to PACU at:: 08:59
--- NOTE | 2021-06-11 09:41 | SUR.PHASEI ---
0928- detailed report called to carine quintana rn in OB at this time. 0931- pt left in stable condition with marla hernández in ob.
[2021-06-11 09:46] LABS: Microscopic,Cath URINE MICROSCOPIC (MICROSCOPIC)
--- NOTE | 2021-06-11 09:59 | HMH.HP ---
*Admission Date: 06/11/21 *Chief complaint: scheduled c section *History of present illness: 21 yo @ 37 4/ admitted for repeat c section History of previous c section and declines trial of labor Irregular contractions but no leakage of fluid or vaginal bleeding normal movement Recently started on wellbutrin for depression and is doing well with that medication [facility] History I have reviewed the patient's past medical history: Yes Medical History: Reports:: Anxiety, Depression Denies:: Asthma, Seizures *Have you ever received a pneumonia vaccine?: No *Have you received a flu vaccine this season?: Yes Other Medical History: Denies: Blood Transfusion Reaction Anesthesia experience/problems:: None Laterality Cases: Bilateral: Myringotomy (Ear Tubes), Tonsillectomy Other Surgeries: Yes: Amputation: No Fractures: No - *Social History Smoking Status: Never smoker Alcohol Intake: never Alcohol Intake Frequency:: holidays/special occasions only Substance Use Type: denies use *Occupational Status:: other Housing: house *Travel in the last 8 weeks: None - Psychiatric History Pschychiatric History:: Reports:: Anxiety, Depression Family Hx:: Unable to obtain [employer] history: Spontaneous Para: 1 Review of Systems - Review of Systems Review of systems:: pertinent systems reviewed and negative unless documented below - *Genitourinary Denies abnormal vaginal bleeding Meds Home Medications Medication Instructions Recorded Confirmed Type Prenat 115/Iron Fum/Folic/Dss 1 each PO DAILY 10/21/20 06/11/21 History [ 19 Tablet] ondansetron 8 mg disintegrating 8 mg PO Q8H #90 tab 10/30/20 06/11/21 Rx tablet buPROPion HCL [Wellbutrin XL] 150 mg PO DAILY 06/11/21 06/11/21 History metroNIDAZOLE [Metronidazole] 1 appful VAGINAL DAILY 06/11/21 History Allergies Allergy/AdvReac Type Severity Reaction Status Date / Time azithromycin [AZITHROMYCIN] Allergy Unknown Verified 05/28/21 13:25 Sulfa (Sulfonamide Allergy Unknown Verified 05/28/21 13:25 Antibiotics) [SULFA (SULFONAMIDE ANTIBIOTICS)] prednisone Allergy Verified 05/28/21 13:25 Exam Vital signs and Labs for Last 24 Hours: Temp Pulse Resp BP Pulse Ox 98.0 F 78 16 114/75 100 06/11/21 09:29 06/11/21 09:29 06/11/21 09:29 06/11/21 09:29 06/11/21 09:29 Laboratory Results - last 24 hr 06/11/21 05:05: Urine Color Yellow, Urine Appearance Sl cloudy, Urine pH 6.0, Ur Specific [place] 1.020, Urine Protein Negative, Urine Glucose (UA) Negative, Urine Ketones Negative, Urine Blood Negative, Urine Nitrate Negative, Urine Bilirubin Negative, Urine Urobilinogen 0.2, Ur Leukocyte Esterase Negative, Urine WBC Occasional, Ur Squamous Epith Cells 20-50, Urine Bacteria 1+, Urine Mucus 3+ 06/11/21 05:05: Urine Opiates Screen Negative, Urine Methadone Screen Negative, Ur Barbituates Screen Negative, Ur Phencyclidine Scrn Negative, Ur Amphetamines Screen Negative, U Benzodiazepines Scrn Negative, Urine Cocaine Screen Negative, U Marijuana (THC) Screen Negative 06/11/21 05:34: SARS-CoV-2 (PCR) Not detected, Influenza A Untype (PCR) Not detected, Influenza Type B (PCR) Not detected I & O for Last 24 hours: Intake & Output 06/08/21 06/09/21 06/10/21 06/11/21 11:59 11:59 11:59 11:59 Intake Total 1500 / 1500 Output Total 150 / 150 Balance 1350 / 1350 Weight 231 lb - Constitutional no acute distress - *Routine HEENT Exam Head: Present: normocephalic Eye: Present: EOMI ENT: Present: mucous membranes moist - *Routine Neck Exam Present: supple. Absent: lymphadenopathy - *Routine Respiratory Exam Present: CTA bilaterally - *Routine Cardiovascular Exam Present: RRR - *Routine Abdominal Exam Present: soft, normoactive bowel sounds. Absent: tenderness - *Routine Rectal Exam Rectal:: deferred - *Routine Genitalia Exam Genitalia:: normal female - *Routine Extremities Exam Absen
[2021-06-11 10:03] LABS: Appearance,Urine/Cath CLEAR (Clear); Bilirubin,Cath Negative (Negative); Blood, Urine/Cath Negative (Negative); Color,Urine/Cath YELLOW (Yellow); Glucose,Urine/Cath (UA) Negative (Negative); Ketones,Urine/Cath Negative (Negative); Leukocyte Esterase,Cath Negative (Negative); Nitrate,Cath Negative (Negative); PH,Urine/Cath 7.5 (5.0-8.5); Protein,Urine/Cath Negative (Negative); Urobilinogen,Cath 0.2 EU/dl (0.2)
[2021-06-11 10:26] LABS: Squamous Epithelial Ur./Cath Occasional #/hpf (0-5)
--- NOTE | 2021-06-11 11:05 | HMH.OPNOTE ---
Date of procedure: 06/11/21 Pre-op Diagnosis:: 1. 39 4/7 weeks 2. Previous c section Post-op Diagnosis:: same Procedure performed:: Low Transverse C Section Surgeon:: Dee Dee Gutiérrez MD Medical Assistant Secretary(s):: Efren Lord MD FIRST MATE:: Dharmesh Silva Anesthesia: spinal Estimated blood loss (mL): 700 Operative findings:: vigorous female infant vertex presentation nuchal cord x 1 grossly normal uterus, fallopian tubes and ovaries Operative note:: The patient was taken to the OR and spinal was administered without difficulty. She was prepped and draped in normal sterile fashion. A pfannenstiel skin incision was made with the scalpel and carried down to the fascia. The fascia was incised in the midline and sharply dissected off the rectus muscles. The muscles were in the midline and the peritoneum was entered sharply and extended bluntly. The Rafat-O self retaining retractor was placed in the abdomen and a bladder flap was created. The uterus was incised in the lower uterine segment in a transverse fashion and extended bluntly. Amniotomy was performed and clear fluid noted. The was delivered in controlled fashion, without complication or shoulder dystocia; a single nuchal cord was reduced after the delivery of the head. The was vigorous at and handed to awaiting pediatricians for evaluation after cord clamped and cut. Cord blood was collected and a cord segment was preserved. The placenta was manually extracted and noted to be intact. The uterus was repaired with 0-vicryl in a running/locked fashion. A second layer was placed for hemostasis. The bladder flap was closed with 2-0 vicryl in a running fashion. The peritoneum was closed with 2-0 vicryl in a running fashion. The fascia was closed with #1 vicryl in a running fashion. The subcutaneous fat was closed with 2-0 vicryl in an interrupted fashion. The skin was closed with 2-0 stratafix in a subcuticular fashion. The patient tolerated the procedure well. Sponge, lap, needle and instrument counts were correct x 2. She was taken to PACU awake and in stable condition. Condition: stable Disposition: PACU Specimens:: placenta Complications:: none
--- NOTE | 2021-06-11 11:22 | HMH.PHAINT ---
MEDICATION RECONCILIATION COMPLETED ON PATIENT USING EXTERNAL FILL HISTORY FROM PHARMACY. -DAGMAR REYNA, GUZMAND
--- NOTE | 2021-06-11 11:23 | HMH.PHAVTE ---
[facility] Pharmacy VTE Monitoring - Patient Demographics Admission date: 06/11/21 Report Date: 06/11/21 Time: 11:23 Allergies/Adverse Reactions: Patient Allergies azithromycin [AZITHROMYCIN] Allergy (Unknown, Verified 05/28/21 13:25) Sulfa (Sulfonamide Antibiotics) [SULFA (SULFONAMIDE ANTIBIOTICS)] Allergy (Unknown, Verified 05/28/21 13:25) prednisone Allergy (Verified 05/28/21 13:25) Height: 1.68 m Weight: 104.78 kg Patient Problems: Current Active Problems 39 weeks gestation of (Acute) Depression affecting (Acute) Previous section (Acute) - Prophylaxis VTE Prophylaxis Ordered?: Yes Types of VTE Prophylaxis: IPCS Thigh High Location of Applied Device: Bilateral Lower Extremeties
[2021-06-12 00:33] VITALS: RESP 18
[2021-06-12 04:07] VITALS: RESP 18
[2021-06-12 07:06] LABS: Hematocrit 32.1 % (37.0-47.0); Hemoglobin 10.3 g/dL (12.2-16.2)
--- NOTE | 2021-06-12 10:42 | HMH.ACPN2 ---
Internal Medicine - PN: Subj *Date: 06/12/21 *Time: 10:42 Interval history: POD #1 repeat c section tolerating regular diet ambulating and voiding without difficulty +gas pain +flatus but no BM asymptomatic with postop anemia Exam Vital signs and Labs for Last 24 Hours: Temp Pulse Resp BP Pulse Ox 98.0 F 78 18 114/75 100 06/11/21 09:29 06/11/21 09:29 06/12/21 04:07 06/11/21 09:29 06/11/21 09:29 Laboratory Results - last 24 hr 06/12/21 06:50: Hgb 10.3 L, Hct 32.1 L I & O for Last 24 hours: Intake & Output 06/09/21 06/10/21 06/11/21 06/12/21 11:59 11:59 11:59 11:59 Intake Total 1500 / 1500 Output Total 150 / 150 1400 / 1400 Balance 1350 / 1350 -1400 / -1400 Weight 231 lb Narrative: CONSTITUTIONAL: no acute distress HEENT: mucous membranes moist PULMONARY: breathing unlabored without audible wheezes CV: no tachycardia or visible JVD; normal LE peripheral pulses ABD: soft, ND; appropriately tender but no rebound/guarding : fundus firm below umbilicus SKIN: incision well approximated with no drainage, erythema or induration EXT: 1+ edema LEs NEURO: alert/oriented, no altered mental status PSYCH: appropriate mood and demeanor Assessment and Plan (1) 39 weeks gestation of Status: Acute Category: Medical Code(s): Z3A.39 - 39 weeks gestation of (2) Previous section Status: Acute Category: Surgical Code(s): Z98.891 - History of uterine scar from previous surgery (3) Depression affecting Status: Acute Category: Medical Code(s): O99.340 - Other mental disorders complicating , unspecified trimester; F32.A - Depression, unspecified (4) Acute blood loss anemia Status: Acute Category: Medical Code(s): D62 - Acute posthemorrhagic anemia - Assessment and plan all Dx Assessment and Plan for all problems:: Routine postop care Mylicon for gas pain FeSO4 for anemia Advance postop care as tolerated Possible discharge home tomorrow
[2021-06-12 20:19] VITALS: RESP 18
[2021-06-13 08:00] VITALS: BP 123/66; PULSE 89; RESP 20; TEMP 36.9; O2SAT 98
--- NOTE | 2021-06-13 12:56 | HMH.DCSUM ---
General - General Admission date:: 06/11/21 Discharge date: 06/13/21 HPI HPI: 21 yo @ 39 4/7 admitted for repeat c section History of previous c section and declines trial of labor Irregular contractions but no leakage of fluid or vaginal bleeding normal movement Recently started on wellbutrin for depression and is doing well with that medication Hospital Course Hospital Course: course uneventful she is discharged home on POD #2 in stable condition She is tolerating a regular diet, ambulating and voiding without difficulty she is asymptomatic with anemia and will continue po ferrous sulfate Rhogam Administration: Not Indicated Objective Vital signs: Temp Pulse Resp BP Pulse Ox 98.4 F 89 20 123/66 98 06/13/21 08:00 06/13/21 08:00 06/13/21 08:00 06/13/21 08:00 06/13/21 08:00 Narrative: CONSTITUTIONAL: no acute distress HEENT: mucous membranes moist PULMONARY: breathing unlabored without audible wheezes CV: no tachycardia or visible JVD; normal LE peripheral pulses ABD: soft, ND; appropriately tender but no rebound/guarding : fundus firm below umbilicus SKIN: incision well approximated with no drainage, erythema or induration EXT: 1+ edema LEs NEURO: alert/oriented, no altered mental status PSYCH: appropriate mood and demeanor without anxiety/depression DS: Diagnosis - Discharge Diagnosis (1) 39 weeks gestation of Status: Acute (2) Previous section Status: Acute (3) Depression affecting Status: Acute (4) Acute blood loss anemia Status: Acute Discharge Plan - Patient Discharge Instructions ACTIVITY: Continue current activity DIET: regular diet Additional Instructions: No heavy lifting/strenuous activity Nothing in the vagina for 6 weeks No driving for 2 weeks or while taking prescription narcotics CALL DR. JOHNSON'S OFFICE TUESDAY AND 2 WEEK F/U Patient Instructions: Depression, Hemorrhage, DI for , DI for Pre-eclampsia, [facility] Post Discharge Instructions, Preventing the Spread of Coronavirus Discharge Instructions - Follow up Plan Follow up with: Dee Dee Johnson MD [Staff Physician] - Disposition: Home, Self-Care Condition at discharge:: Stable Home Medications: Home Medications Medication Instructions Recorded Confirmed Type Prenat 115/Iron Fum/Folic/Dss 1 each PO DAILY 10/21/20 06/11/21 History [ 19 Tablet] buPROPion HCL [Wellbutrin XL] 150 mg PO DAILY 06/11/21 06/11/21 History Ibuprofen [Motrin 400mg 800 mg PO Q6HP PRN #40 tab 06/13/21 Rx tablet] Oxycodone HCl [OxyIR 5mg tablet] 5 mg PO Q4HP PRN #30 tablet 06/13/21 Rx Prescriptions/Medication Reconciliation: New Oxycodone HCl [OxyIR 5mg tablet] 5 mg PO Q4HP PRN #30 tablet PRN Reason: Moderate Pain Acetaminophen [Acetaminophen 325mg tab] 650 mg PO Q4HP PRN tablet PRN Reason: Mild Pain Ibuprofen [Motrin 400mg tablet] 800 mg PO Q6HP PRN #40 tab PRN Reason: Mild To Moderate Pain Continued Prenat 115/Iron Fum/Folic/Dss [ 19 Tablet] 1 each PO DAILY buPROPion HCL [Wellbutrin XL] 150 mg PO DAILY - Problem Reconciliation Problems Reviewed?: Yes
[2021-06-15 09:41] VITALS: BP 114/75; PULSE 78; TEMP 36.6
--- NOTE | 2021-06-15 09:41 | HMH.ANESII ---
[facility] Anesthesia Record Part II Discharge Time: 09:29 Destination: Obstetric PACU nurse assessment reviewed?: Yes Patient Condition:: Good Anesthesia Complications:: None Swallowing reflex intact?: Yes Cyanosis?: No Blood Pressure: 114/75 Pulse Rate: 78 Temperature: 98 F Mental Status: Alert & Oriented Pain level:: 0 Nausea and/or vomitting:: None Intake, IV Amount: 0
== END 2021-06-13 13:25 | disposition home or self-care (01) | DRG 788 ==
PROVIDERS: Admitting Provider Obstetrics & Gynecology; PCP Family Medicine; Visit Provider Obstetrics & Gynecology
PROC: (CPT 59514; principal; 2021-06-11 07:30)
DX: O34.211 Maternal care for low transverse scar from previous cesarean delivery (principal); N85.8 Other specified noninflammatory disorders of uterus; Z3A.39 39 weeks gestation of pregnancy; Z37.0 Single live birth; O99.343 Other mental disorders complicating pregnancy, third trimester; F32.89 Other specified depressive episodes; D64.9 Anemia, unspecified; O90.81 Anemia of the puerperium; O69.81X0 Labor and delivery complicated by cord around neck, without compression, not applicable or unspecified
CPT/HCPCS: 59514; 36415; 59025; 80053; 80305; 81001; 85014; 85018; 85025; 86850; 94761; C9290; C9803; G0283; J2405; U0003; U0005

== ENCOUNTER 2021-07-16 08:59 | Emergency (ER) | payer BC, OTHER, SELFPAY ==
[2021-07-16 09:21] VITALS: BP 135/84; PULSE 93; RESP 16; TEMP 37; O2SAT 98; BMI 32.3
[2021-07-16 09:42] LABS: Strep Scrn Group A (Rapid) Negative (Negative)
--- NOTE | 2021-07-16 09:43 | HMH.EDUTC ---
[facility] [place] Clinical Impression: Viral syndrome Acute bronchitis Qualifiers: Bronchitis organism: unspecified organism Qualified Code(s): J20.9 - Acute bronchitis, unspecified Pharyngitis Qualifiers: Pharyngitis/tonsillitis etiology: unspecified etiology Qualified Code(s): J02.9 - Acute pharyngitis, unspecified Disposition: Home, Self-Care Condition on Discharge: Good Instructions: DI for Pharyngitis/Tonsillopharyngitis -- Adult, DI for Acute Bronchitis, DI for COVID-19 (Suspected or Confirmed ), Preventing the Spread of Coronavirus Discharge Instructions Additional Instructions: Drink plenty of fluids. Take tylenol or ibuprofen for pain or fever. Take the medications as directed. Follow up with your regular doctor. GO TO THE ER FOR ANY WORSENING SYMPTOMS Quarantine until you know the results of your covid-19 test. Notify your school or workplace of your results and follow their instructions regarding return to work/school. Prescriptions: Albuterol Sulfate [Albuterol Sulfate Hfa] 2 puffs IH Q6HP PRN 30 Days #1 each PRN Reason: Shortness Of Breath Transmission Status: Received by [email or web address] Brompheniramine/Pseudoephed/Dm [Bromfed Dm Cough Syrup] 5 ml PO Q6HP PRN #240 ml PRN Reason: Cough Transmission Status: Received by [facility] Amoxicillin [Amoxicillin 500mg Tab] 500 mg PO TID 10 Days #30 tab Transmission Status: Received by [facility] Referrals: Venkata Balderas MD [Primary Care Provider] - Time of Disposition: 10:06 Medical Decision Making - Medical Records Medical records reviewed: No: I reviewed the patient's medical records. - Peter Inquiry Pt receiving controlled substance: No Vital Signs: 07/16/21 09:21 07/16/21 10:14 Temperature 98.6 F 98.6 F Temperature Source Oral Pulse Rate 93 H Pulse Rate [Left] 93 H Respiratory Rate 16 16 Blood Pressure 135/84 Blood Pressure [Right Arm] 135/84 Blood Pressure Mean [Right Arm] 101 02 Sat by Pulse Oximetry 98 - Lab Data Lab results reviewed: Yes: I reviewed the patient's lab results. Lab Results 07/16/21 09:18: Group A Strep Rapid Negative 07/16/21 10:06: Chlamy pneumoniae PCR Not detected, Adenovirus (PCR) Not detected, B. pertussis DNA (PCR) Not detected, Coronavirus OC43 (PCR) Not detected, Coronavirus HKU1 (PCR) Not detected, Coronavirus 229E (PCR) Not detected, SARS-CoV-2 (PCR) Detected A, Coronavirus NL63 (PCR) Not detected, Human Metapneumovir PCR Not detected, Influenza A (H1) PCR Not detected, Influ A (H1N1/09) PCR Not detected, Influenza A (H3) PCR Not detected, Influenza Type A (PCR) Not detected, Influenza Type B (PCR) Not detected, M. pneumoniae (PCR) Not detected, Parainfluenza 1 (PCR) Not detected, Parainfluenza 2 (PCR) Not detected, Parainfluenza 3 (PCR) Not detected, Parainfluenza 4 (PCR) Not detected, RSV (PCR) Not detected, Entero/Rhino (PCR) Not detected Orders (Tests/Meds): ORDERS Category Date Time Status Strep Screen Confirmation Stat Micro 07/16/21 09:18 [place] [facility] [place] - General Stated complaint: soa, sore throat Time Seen by Provider: 07/16/21 09:43 Mode of Arrival: Ambulatory Source of Information: Patient Limitations: No Limitations Description of Symptoms (Recalled from Triage Doc. by RN): pt c/o severe SOA , sore throat and DANIELS since yesterday. HEENT Symptoms (Recalled from RN notes): Yes (DANIELS and sore throat) Resp Symptoms (Recalled from RN notes): Yes (SOA) Skin Symptoms (Recalled from RN notes): No MS Symptoms (Recalled from RN notes): No Functional Status (Recalled from RN notes): wnl - History of Present Illness Provider Complaint: She c/o sore throat and chest congestion since yesterday. - Related Data Home Medications Medication Instructions Recorded Confirmed buPROPion HCL [Wellbutrin XL] 150 mg PO DAILY 06/11/21 06/26/21 Previous Rx's Medication Instructions Recorded Acetaminophen [Acetaminophen 325mg 650
[2021-07-16 10:14] VITALS: BP 135/84; PULSE 93; RESP 16; TEMP 37
[2021-07-16 10:31] LABS: Adenovirus,PCR Not Detected (NotDetected); Bordetella Pertussis Not Detected (NotDetected); Chlamydophila Pneumoniae, PCR Not Detected (NotDetected); Coronavirus 229E Not Detected (NotDetected); Coronavirus NL63 Not Detected (NotDetected); Coronavirus OC43 Not Detected (NotDetected); Coronovirus HKU1,PCR Not Detected (NotDetected); Human Metapneumovirus Not Detected (NotDetected); Influenza A, PCR Not Detected (NotDetected); Influenza AH1, 2009 Not Detected (NotDetected); Influenza AH1, PCR Not Detected (NotDetected); Influenza AH3,PCR Not Detected (NotDetected); Influenza B, PCR Not Detected (NotDetected); Mycoplasma Pneumoniae, PCR Not Detected (NotDetected); Parainfluenza 1, PCR Not Detected (NotDetected); Parainfluenza 2, PCR Not Detected (NotDetected); Parainfluenza 3, PCR Not Detected (NotDetected); Parainfluenza 4, PCR Not Detected (NotDetected); Respiratory Syncytial Virus Not Detected (NotDetected); Rhinovirus/Enterovirus Not Detected (NotDetected)
[2021-07-16 12:04] LABS: Coronavirus 19, PCR Detected (NotDetected)
== END 2021-07-16 10:19 | disposition home or self-care (01) ==
PROVIDERS: Emergency Provider Nurse Practitioner Family; PCP Family Medicine
DX: J02.9 Acute pharyngitis, unspecified (principal); B34.9 Viral infection, unspecified; F32.9 Major depressive disorder, single episode, unspecified; F41.9 Anxiety disorder, unspecified
CPT/HCPCS: 87430; 87581; 87632; 87798; 99203; C9803; G0463; U0003; U0005

== ENCOUNTER 2022-04-04 10:01 | Emergency (ER) | payer BC, OTHER, SELFPAY ==
--- NOTE | 2022-04-04 10:10 | EXP.UTC ---
Discharge Plan Disposition Patient Disposition: Home, Self-Care Condition: Good Prescriptions Prescriptions: New ibuprofen [IBU] 800 mg tablet 800 mg PO Q8HP PRN (Reason: Moderate Pain) Qty: 30 0RF promethazine 25 mg Tablet 25 mg PO Q6H PRN (Reason: Nausea And Vomiting) Qty: 20 0RF No Action fluoride (sodium) 1.1 % paste 1 applic PO DAILY norethindrone-e.estradiol-iron [07/02 ()] 1 mg-20 mcg (21)/75 mg (7) tablet 1 tab PO DAILY Qty: 84 2RF Referrals Follow up/Referrals: Venkata Balderas MD [Primary Care Provider] - See instructions Activity Restrictions/Add. Instructions Additional Instructions/Restrictions: Drink plenty of fluids. Take tylenol or ibuprofen for pain or fever. Take the medications as directed. Follow up with your regular doctor. GO TO THE ER FOR ANY WORSENING SYMPTOMS Thepromethazine will make you drowsy, so don't drive or operate heavy machinery after taking it. Clinical Impressions Clinical Impression: Headache Stand Alone Forms Stand Alone Forms: Work/School Release Instructions Patient Instructions: DI for Headache, Ketorolac Discharge ED Provider: Sj Petersen [facility] General Stated complaint: headache Time Seen by Provider: 04/04/22 10:10 History of Present Illness Provider Complaint: She is has had a head ache for the past 3 days. She denies that it is the worst headache of her life. She also denies that she has a history of migraines. She had covid-19 about 2 weeks ago, but she states that she got completely better from that. Related Data Home Medications Medication Instructions Recorded Confirmed fluoride (sodium) 1.1 % dental 1 applic PO DAILY 07/24/21 12/21/21 paste Previous Rx's Medication Instructions Recorded norethindrone 1 mg-ethinyl 1 tab PO DAILY #84 tabs 11/23/21 estradiol 20 mcg (21)-iron 75 mg (7) tablet (07/02 ()) ibuprofen 800 mg tablet (IBU) 800 mg PO Q8HP PRN Moderate Pain 04/04/22 #30 tabs promethazine 25 mg tablet 25 mg PO Q6H PRN Nausea And 04/04/22 Vomiting #20 tabs Allergies Allergy/AdvReac Type Severity Reaction Status Date / Time azithromycin [AZITHROMYCIN] Allergy Unknown Verified 12/21/21 09:51 Sulfa (Sulfonamide Allergy Unknown Verified 12/21/21 09:51 Antibiotics) [SULFA (SULFONAMIDE ANTIBIOTICS)] prednisone AdvReac Mild Verified 04/04/22 10:23 PFSH PFS Social History Smoking Status: Never smoker alcohol intake: never substance use type: denies use current occupational status: employed Travel in the last 8 weeks: None housing: house ROS Obtained: Yes All systems reviewed & no additional complaints except as documented Constitutional Constitutional: Denies chills and Denies fever(s) Eyes Eyes: Denies eye discharge ENT Ears, Nose, Mouth, and Throat: Denies dizziness, Denies otalgia and Denies sore throat Cardiovascular Cardiovascular: Denies chest pain Respiratory Respiratory: Denies shortness of breath, Denies chest congestion, Denies cough, Denies stridor and Denies wheezing Gastrointestinal Gastrointestingal: Denies nausea or vomiting Musculoskeletal Musculoskeletal: Reports system reviewed and no additional complaints, except as documented and Denies arthralgias Integumentary/Breasts Skin/Breast: Denies rash Neurologic Neurologic: Reports as per HPI, Denies dizziness and Denies paresthesias Allergic/Immunologic Allergic/Immunologic: Denies wheezing Physical Exam General General appearance: alert and in no apparent distress Head Head exam: atraumatic, normocephalic and normal inspection Eye Eye exam: Present normal appearance, PERRL and EOMI ENT ENT exam: Present normal exam, normal oropharynx, mucous membranes moist, TM's normal bilaterally and normal external ear exam Neck Neck exam: Present normal inspection, full ROM and trachea midline; Absent meni
[2022-04-04 10:20] VITALS: BP 137/76; PULSE 71; RESP 16; TEMP 36.9; O2SAT 96; BMI 30.7
[2022-04-04 11:05] VITALS: BP 137/76; PULSE 71; RESP 16; TEMP 36.9
== END 2022-04-04 11:08 | disposition home or self-care (01) ==
PROVIDERS: Emergency Provider Nurse Practitioner Family; PCP Family Medicine
DX: R51.9 Headache, unspecified (principal)
CPT/HCPCS: 96372; 99212; G0463

== ENCOUNTER 2022-06-11 01:21 | Emergency (ER) | payer OTHER, SELFPAY ==
[2022-06-11 01:22] VITALS: BP 104/65; BP 140/100; PULSE 81; PULSE 92; RESP 17; RESP 18; TEMP 36.7; TEMP 36.9; O2SAT 97; O2SAT 98; BMI 25.8; BMI 30.7
--- NOTE | 2022-06-11 01:25 | HMH.EDGENADL ---
Discharge Plan Disposition Patient Disposition: Home, Self-Care Condition: Good Prescriptions Prescriptions: New ondansetron 4 mg tablet,disintegrating 4 mg PO Q8H PRN (Reason: nausea and vomiting) 1 Days Qty: 20 0RF cefdinir 300 mg capsule 300 mg PO Q12H 10 Days Qty: 20 0RF No Action fluoride (sodium) 1.1 % paste 1 applic PO DAILY norethindrone-e.estradiol-iron [Junel FE 07/02 (28)] 1 mg-20 mcg (21)/75 mg (7) tablet 1 tab PO DAILY Qty: 84 2RF ibuprofen [IBU] 800 mg tablet 800 mg PO Q8HP PRN (Reason: Moderate Pain) Qty: 30 0RF promethazine 25 mg Tablet 25 mg PO Q6H PRN (Reason: Nausea And Vomiting) Qty: 20 0RF Referrals Follow up/Referrals: Venkata Balderas MD [Primary Care Provider] - See instructions Activity Restrictions/Add. Instructions Additional Instructions/Restrictions: Please follow up with your primary care physician in 1-2 days for further management. Please use zofran as prescribed and antibiotic. Please return to ED if symptoms worsen or reoccur. Clinical Impressions Clinical Impression: UTI (urinary tract infection), Gastroenteritis and colitis, viral Instructions Patient Instructions: DI for Viral Gastroenteritis -- Adult, DI for Urinary Tract Infection (UTI) Print Language Print Language: Lao Discharge ED Provider: Carmen Aponte Adult HPI General Chief complaint: Abdominal Pain Stated complaint: Right side and back pain Time Seen by Provider: 06/11/22 01:38 Mode of Arrival: Ambulatory Source of Information: Patient Limitations: No Limitations History of Present Illness HPI narrative: Talita is a 22 yo female s/p two C sections presenting to the ED for abdominal pain for 1d. Patient reports yesterday she awoke with right sided abdominal pain. She also reports nausea and diarrhea non bloody. No episoes of emesis. No fevers, cough or other infectious symptoms. No vaginal bleeding or pelvic pain. No recent trauma. complaint: abd pain Onset (ago): day(s) Location: abdomen Radiation: non-radiation Severity: moderate Quality: constant Consistency: constant Relieving factors: none Exacerbating factors: none Associated symptoms: nausea/vomiting (nausea) Related Data Home Medications Medication Instructions Recorded Confirmed fluoride (sodium) 1.1 % dental 1 applic PO DAILY 07/24/21 12/21/21 paste Previous Rx's Medication Instructions Recorded norethindrone 1 mg-ethinyl 1 tab PO DAILY #84 tabs 11/23/21 estradiol 20 mcg (21)-iron 75 mg (7) tablet ( FE 07/02 (28)) ibuprofen 800 mg tablet (IBU) 800 mg PO Q8HP PRN Moderate Pain 04/04/22 #30 tabs promethazine 25 mg tablet 25 mg PO Q6H PRN Nausea And 04/04/22 Vomiting #20 tabs cefdinir 300 mg capsule 300 mg PO Q12H 10 days #20 caps 06/11/22 ondansetron 4 mg disintegrating 4 mg PO Q8H PRN nausea and 06/11/22 tablet vomiting 24 hours #20 tabs Allergies Allergy/AdvReac Type Severity Reaction Status Date / Time azithromycin [AZITHROMYCIN] Allergy Unknown Verified 12/21/21 09:51 Sulfa (Sulfonamide Allergy Unknown Verified 12/21/21 09:51 Antibiotics) [SULFA (SULFONAMIDE ANTIBIOTICS)] prednisone AdvReac Mild Verified 04/04/22 10:23 PFS PFS Disclaimer: The information contained in this section may have been updated after the patient was seen, as this information can be updated by other users. Social History Smoking Status: Current every day smoker alcohol intake: never substance use type: denies use current occupational status: employed Travel in the last 8 weeks: None housing: house ROS Obtained: Yes All systems reviewed & no additional complaints except as documented Physical Exam General General appearance: alert and in no apparent distress Head Head exam: atraumatic and normal inspection Eye Eye exam: Present normal appearance ENT ENT exam: Present normal exam, normal o
--- NOTE | 2022-06-11 01:30 | CT_ITS ---
PROCEDURE INFORMATION: Exam: CT Abdomen And Pelvis With Contrast Exam date and time: 06/11/2022 2:15 AM Age: 22 years old Clinical indication: Nausea and vomiting; Abdominal pain; Prior surgery; Surgery type: Csections; Patient HX: PT C/O right flank and rlq pain that started tonight and woke her up from sleep. ; Additional info: Abd pain TECHNIQUE: Imaging protocol: Computed tomography of the abdomen and pelvis with contrast. Radiation optimization: All CT scans at this facility use at least one of these dose optimization techniques: automated exposure control; mA and/or kV adjustment per patient size (includes targeted exams where dose is matched to clinical indication); or iterative reconstruction. Contrast material: ISOVUE; Contrast volume: 75 ml; Contrast route: IV; COMPARISON: [id number] CT abdomen pelvis wo/w con 07/14/2017 5:58 PM FINDINGS: Lungs: Clear basilar lung parenchyma. Pleural spaces: No pleural fluid. Heart: Normal heart size. Liver: Normal configuration. Homogeneous parenchyma. Gallbladder and bile ducts: No regional inflammation. No calcified stones. No ductal dilation. Pancreas: Normal. No ductal dilation. Spleen: Normal. No splenomegaly. Adrenal glands: Normal configuration. Kidneys and ureters: There is an intrarenal stone on the left. No ureteral stones on either side. Left kidney demonstrates multifocal scarring. No evidence pyelonephritis. Stomach and bowel: Unremarkable. No obstruction. No mural thickening. Appendix: Normal appendix is confirmed. Intraperitoneal space: No free air. No significant fluid collection. Vasculature: Normal caliber arterial structures. Lymph nodes: No enlarged lymph nodes. Urinary bladder: Unremarkable as visualized. Reproductive: Physiologic appearance for age. Bones/joints: No fracture or destructive lesion. Soft tissues: Unremarkable. IMPRESSION: No acute abnormality identified to explain patient's right flank pain, nausea, and vomiting. In particular, there is no evidence urolithiasis, and a normal appendix is demonstrated. No visible gallbladder inflammation.
[2022-06-11 01:47] LABS: Microscopic, Urine URINE MICROSCOPIC (MICROSCOPIC)
[2022-06-11 01:53] LABS: Basophils % 0.3 % (0.1-2.0); Eosinophils # 0.1 K/mm3 (0.0-0.4); Eosinophils % 0.6 % (0.1-12.0); Hematocrit 43.6 % (37.0-47.0); Lymphocytes # 1.3 K/mm3 (0.7-4.5); Lymphocytes % 11.9 % (10-50); Mean Corpuscular HGB Conc 32.1 g/dL (31.8-35.4); Mean Corpuscular Hemoglobin 30.4 pg (27.0-31.2); Mean Corpuscular Volume 94.5 fl (81-99); Mean Platelet Volume 7.6 fl (7.4-10.4); Monocytes # 0.6 K/mm3 (0.1-1.0); Monocytes % 5.9 % (1.7-9.3); Neutrophils # 8.7 K/mm3 (1.8-7.8); Neutrophils % 81.3 % (37.0-80.0); Platelet Count 335 K/mm3 (142-424); Red Blood Count 4.61 M/mm3 (4.20-5.40); Red Cell Distribution Width 13.3 % (11.5-17.5); White Blood Count 10.7 K/mm3 (4.8-10.8)
[2022-06-11 01:53] LABS: Appearance,Urine CLEAR (Clear); Bilirubin,Urine Negative (Negative); Blood, Urine Negative (Negative); Color,Urine YELLOW (Yellow); Glucose,Urine (UA) Negative (Negative); Ketones,Urine Negative (Negative); Leukocyte Esterase,Urine Negative (Negative); Nitrate,Urine Negative (Negative); PH,Urine 8.5 (5.0-8.5); Protein,Urine Negative (Negative); Specific Gravity, Urine 1.015 (1.005-1.030); Urobilinogen,Urine 0.2 EU/dl (0.2)
[2022-06-11 02:00] LABS: HCG Qualitative, Serum Negative (Negative)
[2022-06-11 02:02] LABS: Alanine Aminotransferase 18 U/L (12-78); Albumin Level 4.7 g/dl (3.5-5.0); Albumin/Globulin Ratio 1.7 (1.1-1.8); Alkaline Phosphatase 63 U/L (38-126); Anion Gap 11.7 mEq/L (5-15); Aspartate Amino Transferase 25 U/L (14-36); Bilirubin,Total 0.5 mg/dl (0.2-1.3); Blood Urea Nitrogen 17 mg/dl (7-17); Carbon Dioxide 27 mmol/L (22.0-30.0); Chloride 105 mmol/L (98-107); Creatinine Clearance Estimated 236 mL/min (50-200); Estimated Glomerular Filt Rate 152 ml/min (>60); GFR (African American) 183 ML/MIN (>60); Globulin 2.8 g/dL (1.3-3.2); Glucose 132 mg/dl (74-100); Lipase 55 U/L (23-300); Potassium 3.7 mmoL/L (3.5-5.1); Sodium 140 mmol/L (136-145); Total Protein,Serum 7.5 g/dl (6.3-8.2)
[2022-06-11 02:11] LABS: Bacteria,Urine 1+ /lpf
[2022-06-11 03:59] VITALS: BP 106/74; PULSE 78; RESP 16; TEMP 36.9; O2SAT 98
== END 2022-06-11 04:17 | disposition home or self-care (01) ==
PROVIDERS: Emergency Provider Student in an Organized Health Care Education/Training Program; PCP Family Medicine
DX: M54.9 Dorsalgia, unspecified (principal); K52.9 Noninfective gastroenteritis and colitis, unspecified; N39.0 Urinary tract infection, site not specified
CPT/HCPCS: 74177; 80053; 81001; 83690; 84703; 85025; 96374; 96375; 99285; J2405; Q9967

== ENCOUNTER → 2022-09-10 16:57 | Outpatient (CLI) | payer OTHER, SELFPAY ==
[2022-09-10 17:27] LABS: Basophils # 0.1 K/mm3 (0-0.2); Basophils % 0.8 % (0.1-2.0); Eosinophils # 0.1 K/mm3 (0.0-0.4); Eosinophils % 0.8 % (0.1-12.0); Hematocrit 39.4 % (37.0-47.0); Hemoglobin 12.9 g/dL (12.2-16.2); Lymphocytes # 2.1 K/mm3 (0.7-4.5); Lymphocytes % 35.2 % (10-50); Mean Corpuscular HGB Conc 32.7 g/dL (31.8-35.4); Mean Corpuscular Hemoglobin 30.4 pg (27.0-31.2); Mean Platelet Volume 7.6 fl (7.4-10.4); Monocytes # 0.4 K/mm3 (0.1-1.0); Monocytes % 6.2 % (1.7-9.3); Neutrophils # 3.3 K/mm3 (1.8-7.8); Platelet Count 314 K/mm3 (142-424); Red Blood Count 4.24 M/mm3 (4.20-5.40); Red Cell Distribution Width 12.9 % (11.5-17.5); White Blood Count 5.8 K/mm3 (4.8-10.8)
[2022-09-10 17:55] LABS: Alanine Aminotransferase 12 U/L (12-78); Albumin Level 4.5 g/dl (3.5-5.0); Albumin/Globulin Ratio 1.7 (1.1-1.8); Alkaline Phosphatase 48 U/L (38-126); Anion Gap 9.6 mEq/L (5-15); Aspartate Amino Transferase 20 U/L (14-36); Bilirubin,Total 0.3 mg/dl (0.2-1.3); Blood Urea Nitrogen 12 mg/dl (7-17); Calcium 8.9 mg/dl (8.4-10.2); Carbon Dioxide 27 mmol/L (22.0-30.0); Chloride 105 mmol/L (98-107); Estimated Glomerular Filt Rate 152 ml/min (>60); GFR (African American) 183 ML/MIN (>60); Globulin 2.6 g/dL (1.3-3.2); Glucose 75 mg/dl (74-100); Magnesium 2.3 mg/dl (1.6-2.3); Potassium 4.6 mmoL/L (3.5-5.1); Sodium 137 mmol/L (136-145); Total Protein,Serum 7.1 g/dl (6.3-8.2)
[2022-09-10 18:26] LABS: Thyroid Stimulating Hormone 0.87 uIU/mL (0.465-4.68)
[2022-09-10 18:45] LABS: Vitamin B12 286 pg/mL (239-931)
== END ==
PROVIDERS: PCP Physician Assistant; Visit Provider Physician Assistant
DX: R42 Dizziness and giddiness (principal); G43.019 Migraine without aura, intractable, without status migrainosus
CPT/HCPCS: 36415; 80053; 82607; 83735; 84443; 85025

== ENCOUNTER 2022-09-11 22:56 | Emergency (ER) | payer OTHER, SELFPAY ==
[2022-09-11 22:57] VITALS: BP 143/99; PULSE 86; RESP 18; TEMP 36.6; O2SAT 100; BMI 29.0
--- NOTE | 2022-09-11 23:24 | ECG_ITS ---
APPROVED REPORT Exam: Resting ECG HR:77 bpm ECG Measurements Heart Rate 77 AXES MA 122 P -1 QRSd 114 QRS 17 QT 382 T 47 QTc 413 Conclusion SINUS RHYTHM MODERATE INTRAVENTRICULAR CONDUCTION DELAY [110+ ms QRS DURATION] BORDERLINE ECG UNCONFIRMED REPORT Electronically signed by : Hamilton Recinos MD 09/12/2022 15:43:26
[2022-09-11 23:30] VITALS: BP 137/93; PULSE 84; RESP 18; O2SAT 100
[2022-09-11 23:47] LABS: Basophils % 0.7 % (0.1-2.0); Eosinophils # 0.1 K/mm3 (0.0-0.4); Eosinophils % 1.6 % (0.1-12.0); Hemoglobin 13.1 g/dL (12.2-16.2); Lymphocytes # 2.3 K/mm3 (0.7-4.5); Lymphocytes % 38.2 % (10-50); Mean Corpuscular HGB Conc 32.7 g/dL (31.8-35.4); Mean Corpuscular Hemoglobin 30.6 pg (27.0-31.2); Mean Corpuscular Volume 93.6 fl (81-99); Mean Platelet Volume 7.6 fl (7.4-10.4); Monocytes # 0.4 K/mm3 (0.1-1.0); Monocytes % 6.8 % (1.7-9.3); Neutrophils # 3.2 K/mm3 (1.8-7.8); Neutrophils % 52.7 % (37.0-80.0); Platelet Count 325 K/mm3 (142-424); Red Blood Count 4.27 M/mm3 (4.20-5.40); White Blood Count 6.1 K/mm3 (4.8-10.8)
[2022-09-12 00:04] LABS: Alanine Aminotransferase 14 U/L (12-78); Albumin Level 4.6 g/dl (3.5-5.0); Albumin/Globulin Ratio 1.5 (1.1-1.8); Alkaline Phosphatase 54 U/L (38-126); Anion Gap 12.6 mEq/L (5-15); Aspartate Amino Transferase 25 U/L (14-36); Bilirubin,Total 0.4 mg/dl (0.2-1.3); Blood Urea Nitrogen 13 mg/dl (7-17); Calcium 9.1 mg/dl (8.4-10.2); Carbon Dioxide 26 mmol/L (22.0-30.0); Chloride 103 mmol/L (98-107); Creatinine Clearance Estimated 186 mL/min (50-200); Estimated Glomerular Filt Rate 123 ml/min (>60); GFR (African American) 149 ML/MIN (>60); Glucose 87 mg/dl (74-100); Potassium 3.6 mmoL/L (3.5-5.1); Sodium 138 mmol/L (136-145); Total Protein,Serum 7.6 g/dl (6.3-8.2)
[2022-09-12 00:16] LABS: Microscopic, Urine URINE MICROSCOPIC (MICROSCOPIC)
[2022-09-12 00:23] LABS: Appearance,Urine CLOUDY (Clear); Bilirubin,Urine Negative (Negative); Blood, Urine Negative (Negative); Color,Urine YELLOW (Yellow); Glucose,Urine (UA) Negative (Negative); Ketones,Urine 1+ (Negative); Leukocyte Esterase,Urine Negative (Negative); Nitrate,Urine POSITIVE (Negative); PH,Urine 6.5 (5.0-8.5); Protein,Urine Negative (Negative); Specific Gravity, Urine 1.025 (1.005-1.030); Urobilinogen,Urine 0.2 EU/dl (0.2)
[2022-09-12 00:24] LABS: Urine Pregnancy, HCG Qual. Negative (Negative)
[2022-09-12 00:42] LABS: Bacteria,Urine 3+ /lpf
--- NOTE | 2022-09-12 01:47 | CT_ITS ---
PROCEDURE INFORMATION: Exam: CT Head Without Contrast Exam date and time: 09/12/2022 2:00 AM Age: 22 years old Clinical indication: Walking, difficulty; Additional info: Off balance, tingling TECHNIQUE: Imaging protocol: Computed tomography of the head without contrast. Radiation optimization: All CT scans at this facility use at least one of these dose optimization techniques: automated exposure control; mA and/or kV adjustment per patient size (includes targeted exams where dose is matched to clinical indication); or iterative reconstruction. REPORTING DATA: Count of CT and Cardiac NM exams in prior 12 months: This patient has received [address] and 0 known cardiac nuclear medicine studies in the 12 months prior to the current study. COMPARISON: No relevant prior studies available. FINDINGS: Brain: Normal. No hemorrhage. Unremarkable white matter. No mass effect. Cerebral ventricles: No ventriculomegaly. Paranasal sinuses: Mild maxillary sinus mucosal thickening. Mastoid air cells: Visualized mastoid air cells are well aerated. Bones/joints: Unremarkable. No acute fracture. Soft tissues: Unremarkable. IMPRESSION: No acute intracranial abnormality. Mild chronic sinus congestion.
--- NOTE | 2022-09-12 01:48 | HMH.EDDIZZ ---
Discharge Plan Disposition Patient Disposition: Home, Self-Care Chief Complaint: Dizziness Prescriptions Prescriptions: No Action phentermine 37.5 mg tablet 37.5 mg PO DAILY Label Comments: Take one tablet by mouth daily (30 minutes before or 1-2 hour(s) after breakfast). norethindrone-e.estradiol-iron 1 mg-20 mcg (21)/75 mg (7) tablet 1 tab PO DAILY Label Comments: TAKE ONE TABLET BY MOUTH EVERY DAY methylprednisolone 4 mg tablets,dose pack 4 mg PO DAILY sertraline 50 mg tablet 50 mg PO DAILY Label Comments: TAKE ONE TABLET BY MOUTH EVERY DAY Referrals Follow up/Referrals: Carmen yHde PA [Primary Care Provider] - See instructions Clinical Impressions Clinical Impression: Dizziness Instructions Patient Instructions: Dizziness, Nonvertigo Discharge ED Provider: Evelyn (ED)Markel [facility] General Chief Complaint: Dizziness Stated Complaint: Hands and feet are numb, zoneing out Time Seen by Provider: 09/12/22 01:48 Mode of Arrival: Ambulatory Source of Information: Patient and Medical Record Limitations: No Limitations Description of Symptoms (Recalled from ER Triage Doc. by RN): 22 F presents with spells of zoning out with her hands and feet going numb. This started approximately 1 month ago; however, patient reports she started taking new medications around this time. Patient states this evening it became worse because it now involved her hands and feet going numb. Denies syncope, SOA, chest pain. History of Present Illness HPI Narrative: over the last weeks has sense of zoning out and tingling to ext w/o loc or sz and no fever rash or trauma MD complaint: dizziness Onset (ago): week(s) Timing: gradual onset and waxing/waning Description: lightheadedness History of similar episodes: Yes History of trauma: No Severity: moderate Associated symptoms: denies other symptoms Related Data Home Medications Medication Instructions Recorded Confirmed methylprednisolone 4 mg tablets in 4 mg PO DAILY Illness 09/11/22 09/11/22 a dose pack norethindrone 1 mg-ethinyl 1 tab PO DAILY Contraception 09/11/22 09/11/22 estradiol 20 mcg (21)-iron 75 mg (7) tablet phentermine 37.5 mg tablet 37.5 mg PO DAILY Supplement 09/11/22 09/11/22 sertraline 50 mg tablet 50 mg PO DAILY Mood 09/11/22 09/11/22 Allergies Allergy/AdvReac Type Severity Reaction Status Date / Time azithromycin [AZITHROMYCIN] Allergy Unknown Verified 12/21/21 09:51 Sulfa (Sulfonamide Allergy Unknown Verified 12/21/21 09:51 Antibiotics) [SULFA (SULFONAMIDE ANTIBIOTICS)] prednisone AdvReac Mild Verified 04/04/22 10:23 [facility] Disclaimer: The information contained in this section may have been updated after the patient was seen, as this information can be updated by other users. Social History Smoking Status: Never smoker alcohol intake: never substance use type: denies use current occupational status: employed Travel in the last 8 weeks: None housing: house ROS Obtained: Yes All systems reviewed & no additional complaints except as documented Physical Exam General General appearance: alert Head Head exam: normocephalic Eye Eye exam: Present PERRL and EOMI; Absent nystagmus ENT ENT exam: Present mucous membranes moist Neck Neck exam: Present trachea midline Respiratory Respiratory exam: Present normal lung sounds bilaterally; Absent respiratory distress Cardiovascular Cardiovascular exam: Present regular rate Abdominal Exam Abdominal exam: Present soft Extremities Exam Extremities exam: Present full ROM Neurological Exam Neurological exam: Present alert, oriented X3, CN II-XII intact and other (gcs=15); Absent motor sensory deficit Psychiatric Psychiatric exam: Present normal affect Skin Skin exam: Absent rash Medical Decision Making Medical Records Medical records reviewed: Yes I revi
[2022-09-12 02:06] LABS: C-Reactive Protein 4.3 mg/L (0-4)
[2022-09-12 02:16] VITALS: BP 124/96; PULSE 70; RESP 18; O2SAT 99
[2022-09-12 02:19] LABS: Erythrocyte Sedimentation Rate 16 mm/hr (0-20)
[2022-09-12 02:23] LABS: Procalcitonin < 0.030 ng/mL (0.0-2.0)
[2022-09-12 02:30] VITALS: BP 134/92; PULSE 68; O2SAT 99
[2022-09-12 03:04] VITALS: BP 129/88; PULSE 67; RESP 16; TEMP 36.7; O2SAT 99
== END 2022-09-12 03:07 | disposition home or self-care (01) ==
PROVIDERS: Emergency Provider Emergency Medicine; PCP Physician Assistant
DX: R42 Dizziness and giddiness (principal)
CPT/HCPCS: 70450; 80053; 81001; 81025; 84145; 85025; 85651; 86140; 87086; 87088; 87186; 93005; 96360; 99284; 99285

== ENCOUNTER → 2022-09-21 08:23 | Outpatient (CLI) | payer OTHER, SELFPAY ==
--- NOTE | 2022-09-21 08:30 | MR_ITS ---
FINAL REPORT CLINICAL HISTORY: MIGRAINE, DIZZINESS,VISUAL DISTURNANCE, FACIAL PARESTHESIA right sided migraine headaches tenderness on right side of mu-ism FINDINGS: Multiplanar MR imaging of the brain was performed without and with contrast. There is no evidence of intracranial hemorrhage or mass. No abnormal extra-axial fluid collection is seen. The ventricular size is within normal limits. There is no evidence of shift of the midline structures. The posterior fossa and brainstem have an unremarkable appearance. No area of abnormal restricted diffusion is identified. No abnormal contrast enhancement is seen. Normal major vessel vascular flow voids are noted. IMPRESSION: No acute intracranial abnormality identified. Reviewed, Interpreted and Dictated by Giovanni Ovalle III, MD Transcribed by Giuliano Gavin Authenticated and [facility]
== END ==
PROVIDERS: PCP Physician Assistant; Visit Provider Physician Assistant
DX: G43.019 Migraine without aura, intractable, without status migrainosus (principal); R42 Dizziness and giddiness; H53.9 Unspecified visual disturbance; R20.2 Paresthesia of skin
CPT/HCPCS: 70553; A9576

== ENCOUNTER 2023-06-24 16:16 | Outpatient (CLI) | payer SELFPAY ==
--- NOTE | 2023-06-24 16:20 | XR_ITS ---
PROCEDURE INFORMATION: Exam: XR Lumbosacral Spine Exam date and time: 06/24/2023 4:22 PM Age: 23 years old Clinical indication: Low back pain; Additional info: Acute midline low back pain w/out sciatica TECHNIQUE: Imaging protocol: Radiologic exam of the lumbosacral spine. Views: 4 or 5 views. COMPARISON: CT ABDOMEN PELVIS W CON 06/11/2022 2:15 AM FINDINGS: Bones/joints: There are 5 lumbar type vertebral bodies. No loss of vertebral body height. No evidence of a fracture. No significant degenerative change. Soft tissues: Unremarkable. IMPRESSION: Normal exam.
== END 2023-06-24 23:59 ==
LOC: RAD 16:17
PROVIDERS: PCP Physician Assistant; Visit Provider Physician Assistant
DX: M54.50 Low back pain, unspecified (principal)
CPT/HCPCS: 72110

== ENCOUNTER 2024-10-11 11:37 | Outpatient (CLI) | payer BC, SELFPAY ==
[2024-10-11 12:58] LABS: HCG,Quantitative < 2 mIU/ml (0-5.42)
== END 2024-10-11 23:59 | disposition home or self-care (01) ==
LOC: LAB 11:37
PROVIDERS: PCP Physician Assistant; Visit Provider Obstetrics & Gynecology
DX: N92.6 Irregular menstruation, unspecified (principal)
CPT/HCPCS: 36415; 84702

== ENCOUNTER 2025-01-19 09:10 | Outpatient (CLI) | payer BC, SELFPAY ==
--- OUTSIDE RECORDS SUMMARY | 2023-11-18 07:15 | XMS_ITS ---
Author Organization [facility] Address [address] [place] [id number] Care Team Providers Care Information Technology Teacher Name Role Phone Daniella Demarcus Primary Care Provider [phone] Grace Balderas Unavailable [phone] Grace Patel Unavailable [phone] Allergies Allergen (clinical drug ingredient) Drug/Non Drug Allergy documented on EMR Reaction Allergy Type Onset Date Status azithromycin Zithromax rash Drug Allergy Acti ve Substance with sulfonamide structure and antibacterial mechanism of action (substance) Sulfa Antibiotics Unknown Drug Allergy Active Results Component Value Reference Range Notes Urinalysis - Inhouse Reviewed date:11/21/2023 08:22:08 AM Interpretation: Performing Lab: Notes/Report: Color/Clarity yellow/cloudy Leuk Neg Nitrite Neg Urobili 3.2 Protein Neg pH 6.5 Blood 2+ Sp. Gr. 1.025 Ketone Neg Bili Neg Gluc Neg P-Culture, Urine Reviewed date:11/21/2023 08:21:50 AM Interpretation:no growth Performing Lab: Notes/Report: Test performed by [employer] [address] [place] [address] , [address], [place] [address] Saeed Ayala MD, Energy Engineer CLIA: [id number] Specimen Source Urine - Void Culture, Urine See Below Final Report : No growth REASON FOR VISIT possible UTI,spotting Medications Medication SIG (Take, Route, Frequency, Duration) Notes Start Date End Date Status Cipro 500 MG 1 tablet Orally ever y 12 hrs; Duration: 5 day(s) 11/18/2023 Active Vital Signs Blood pressure systolic 106 mm Hg 11/18/19 24 Blood pressure diastolic 78 mm Hg 024 Heart Rate 81 /min 11/18/2023 Height 65.75 in 11/18/2023 Weight 172.8 lbs 11/18/2023 BMI 28.10 kg/m2 11/18/2023 Encounters Encounter Location Date Provider Diagnosis [facility] [address] [place] [id number] 11/18/2023 Grace Patel UTI (lower urinary tract infection) N39.0 and Hematuria R31.9 Assessments Encounter Date Diagnosis (ICD Code) Assessment Notes Treatment Notes Treatment Clinical Notes Section Notes 11/18/2023 UTI (lower urinary tract infection) (ICD-10 - N39.0) ABX pending culture results 11/18/2023 Hematuria (ICD-10 - R31.9) 11/18/2023 Other discussed menses Plan Of Treatment Medication Medication Name Sig Start Date Stop Date Notes Cipro 500 MG 1 tablet Orally ever y 12 hrs; Duration: 5 day(s) 11/18/2023 Treatment Notes Assessment Notes UTI (lower urinary tract infection) ABX pending culture results Other discussed menses Next Appt Details Follow Up: prn, Reason: Progress Notes * JOE GRUBERDOB: [birth year] (24 yo F)Acc No.[id number]:11/18/2023 Progress Notes Patient: JOE RIGGINS Provider: MADELIN Denis :2000 A ge:23 Y S ex:Female Date:11/18/2023 Address: [id number] Pcp:Demarcus Brewer Subjective: * Chief Complaints: * 1 . possible UTI,spotting. * HPI: U rology: The pt is here today with c/o vaginal spotting of blood. Pt states over the past week she has had frequent urination and urgency. Pt states her next period is not due until November 25. 23 year old female presents with c/o frequent urination. c/o urgency. c/o hematuria. Denies : burning sensation. D enies : suprapubic pain. D enies : fever. * ROS: D ERMATOLOGY: no R dea. n o H david. G ASTROENTEROLOGY: no N ausea. n o V omiting. n o D iarrhea.? U ROLOGY: no D ifficulty urinating. n o B lood in urine. * Medical History: A bdominal pain, ER visit at [place], [place] with CT scan and transvaginal U/S, 2019. * Surgical History: a denoidectomy , ear tubes x 3 , 01/2019, C- section at [facility] 2020 . * Hospitalization/Major Diagno stic Procedure: [facility]-strep 04/27. * Family History: F ather: alive 52 yrs. M other: alive 45 yrs. 1 sister(s) - healthy. . * Social History: C URRENT TOBACCO USE S moking Status: Patient does NOT smoke. C affeine: yes, frequency:daily. Home smoke detector use: yes. Marital Status: Single. Past smoking status: no, Smoking status: Does not smoke. Recreational drug use: no. Alcohol: No. * Medications: D iscontinued Phentermine HCl 37.5 MG Capsule 1 cap(s) orally once a day , Discontinued Sertraline HCl 50 MG Tablet 1 tab(s) orally once a day , Discontinued Medrol 4 MG Tablet Therapy Pack as directed orally daily , Discontinued Wellbutrin XL 150 MG Tablet Extended Release 24 Hour 1 tab(s) orally every 24 hours , Discontinued Medrol 4 MG Tablet Therapy Pack as directed , Discontinued Metaxalone 800 MG Tablet 1 tab(s) orally 3 times a day, prn , Discontinued 1 , Notes to Pharmacist: *Please review for potential replacement for e-prescription and drug interaction check*, Discontinued Medrol 4 MG Tablet Therapy Pack as directed orally daily , Medication List reviewed and reconciled with the patient * Allergies: S ulfa Antibiotics, Zithromax: rash. Objective: * Vitals: W t:172.8, Temp:98.2, BP:106/78, HR:81, Nurse:BURAK, Ht: 65.75, BMI:28.10. * Examination: G eneral Examination: General Appearance: NAD, appears healthy, alert, pleasant. H eart: RRR. L ungs: CTAB A&P. A bdomen: bowel sounds present, soft and nontender, no organomegaly or masses. N eurologic Exam: alert and oriented. ? Assessment: * Assessment: 1. U TI (lower urinary tract infection) - N39.0 (Primary) 2 . H ematuria - R31.9 Plan: * Treatment: Value Reference Range C ulture, Urine See Below - * S pecimen Source Urine - Void - * Grace Patel 11/21/2023 8:20:04 AM > I spoke with pt and reported negative results; she will stop the Cipro Notes: ABX pending culture results??2.?Hematuria?LAB: P-Culture, Urine (Collection Date & Time - 11/18/2023 11:03 AM)?no growth* Value Reference Range C ulture, Urine See Below - * S pecimen Source Urine - Void - * Grace Patel 11/21/2023 8:20:04 AM > I spoke with pt and reported negative results; she will stop the Cipro ?LAB: Urinalysis - Inhouse (Collection Date & Time - 11/18/2023)* Value Reference Range C olor/Clarity yellow/cloudy * L euk Neg * N itrite Neg * U robili 3.2 * P rotein Neg * p H 6.5 * B lood 2+ * S p. Gr. 1.025 * K etone Neg * B jocelyn Neg * G katie Neg * Rekha Chun 11/18/2023 11:4 3:07 AM > , Provider reviewed results while patient in office.Grace Patel 11/21/2023 8:22:08 AM > 3.?Others? Notes: discussed menses?? * Procedure Codes: 8 1002 Urinalysis, no micro * Follow Up: p rn * Images: Billing Information: * Visit Code: 11325 Office Visit, Est Pt., Level 3. * Procedure Codes: 52492 Urinalysis, no micro. * Electronic signature of An Patel APRN on 01/19/2025 at 09:14 AM EDT Sign off status: Pending * Provider: MADELIN Denis Date: 0 11/18/2023 Generated for Ashley dennis/Mimi/Isacsmitting on: 0 01/19/2025 09:14 AM EDT History and Physical Notes * HPI (History of Present Illness) Category Sub-Category Detail Notes Category Not es Urology frequent urination burning sensation suprapubic pain hematuria fever urgency Examination Category Sub-Category Detail Notes Category Not es General Examination Heart: RRR Lungs: CTAB A&P Abdomen: bowel sounds present , soft and nontender, no organomegaly or masses General Appearance: NAD, appears healthy , alert, pleasant Neurologic Exam: alert and oriented
--- OUTSIDE RECORDS SUMMARY | 2024-03-08 06:00 | XMS_ITS ---
Author Organization [facility] Address [address] [place] [id number] Care Team Providers Care Certification Technician Name Role Phone Daniella Demarcus Primary Care Provider Grace Balderas Unavailable [phone] Carmen Hyde Unavailable [phone] Allergies Allergen (clinical drug ingredient) Drug/Non Drug Allergy documented on EMR Reaction Allergy Type Onset Date Status azithromycin Zithromax rash Drug Allergy Acti ve Substance with sulfonamide structure and antibacterial mechanism of action (substance) Sulfa Antibiotics Unknown Drug Allergy Active Results Component Value Reference Range Notes CBC Venipuncture (in house) Reviewed date:03/08/2024 12:27:51 PM Interpretation: Performing Lab: Notes/Report: wbc 5.6 3.5 - 10 lymph 28.1 15 - 50 mid 5.7 2 - 15 gran 66.2 35 - 80 rbc 4.01 3.5 - 5.5 hgb 12.6 11.5 - 16.5 hct 36.5 35 - 55 mcv 90.9 75 - 100 mch 31.4 25 - 35 mchc 34.5 31 - 38 platlet 249 100 - 400 P-Vitamin B12 Reviewed date:03/13/2024 10:44:10 AM Interpretation:365 Performing Lab: Notes/Report: Test performed by [employer] [facility] , [address], [place] [address] Saeed Ayala MD, Bowl Attendant CLIA: [id number] Vitamin B12 032 623-3108 pg/mL P-Comprehensive Metabolic Pa akua (CMP) Reviewed date:03/13/2024 10:44:10 AM Interpretation:Cr 0.43 Performing Lab: Notes/Report: Test performed by [facility] [address] [place] [address] , [address], [place] [address] Saeed Ayala MD, Bowl Attendant CLIA: [id number] Sodium 141 135-145 mmol/L Potassium 4.2 3.5-5.3 mmol/L Chloride 107 97-108 mmol/L CO2 25 22-32 mmol/L Glucose 86 65-99 mg/dL BUN 13 6-20 mg/dL Creatinine 0.43 0.50-1.00 mg/dL Calcium 9.1 8.6-10.4 mg/dL eGFR by Creatinine 137 >59 mL/min/1.73m2 Protein 6.6 6.0-8.3 g/dL Albumin 4.5 3.5-5.3 g/dL Alkaline Phosphatase 49 35-121 IU/L ALT (SGPT) 9 <5-47 IU/L AST (SGOT) 13 <5-40 IU/L Bilirubin, Total 0.3 <0.2-1.2 mg/dL A/G Ratio 2.1 1.1-2.5 P-TSH reflex to FT4 Reviewed date:03/13/2024 10:44:10 AM Interpretation:Normal Performing Lab: Notes/Report: Test performed by [facility] [address] [place] [address] , [place] [address] Saeed Ayala MD, Bowl Attendant CLIA: [id number] TSH reflex to FT4 1.08 0.43-5.25 mU/L P-Vitamin D 25-Hydroxy Reviewed date:03/13/2024 10:44:10 AM Interpretation:22.9 Performing Lab: Notes/Report: Test performed by [facility] [employer] [facility] [address] [place] [address] , [address], [place] [address] Saeed Ayala MD, Bowl Attendant CLIA: [id number] Vitamin D 25-Hydroxy 22.9 30.0-100.0 ng/mL Interpretation of Vitamin D 25 OH: < 20 ng/mL - Deficiency 20 - 29 ng/mL - Insufficiency 30 - 100 ng/mL - Sufficiency > 100 ng/mL - Super-therapeutic- toxicity may occur above this level. Clinical correlation required. REASON FOR VISIT anxiety Problems Problem Type SNOMED Code ICD Code Onset Dates Problem Status W/U Status Risk Notes Problem Anxiety ([id number]) Anxiety (F41.9) Active confirmed Vital Signs Blood pressure systolic 120 mm Hg 03/08/20 24 Blood pressure diastolic 80 mm Hg 024 Heart Rate 92 /min 03/08/2024 Height 65.75 in 03/08/2024 Weight 178.4 lbs 03/08/2024 BMI 29.01 kg/m2 03/08/2024 Encounters Encounter Location Date Provider Diagnosis [facility] [address] [place] [id number] 03/08/2024 Carmen Barrett Anxiety F41.9 ; Forgetfulness R68.89 and Intractable migraine without aura and without status migrainosus G43.019 Assessments Encounter Date Diagnosis (ICD Code) Assessment Notes Treatment Notes Treatment Clinical Notes Section Notes 03/08/2024 Anxiety (ICD-10 - F41.9) She is going to get a genetic swab and f/u with Dee Dee Sanchez before starting any new medications. Will get labs. 03/08/2024 Forgetfulness (ICD-10 - R68.89) 03/08/2024 Intractable migraine without aura and without status migrainosus (ICD-10 - G43.019) Plan Of Treatment Treatment Notes Assessment Notes Anxiety She is going to get a genetic swab and f/u with Dee Dee Sanchez before starting any new medications. Will get labs. Next Appt Details Follow Up: via phone to repo rt test results, Reason: Progress Notes * JOE GRUBERDOB: [birth year] (24 yo F)Acc No.[id number]:03/08/2024 Progress Notes Patient: JOE RIGGINS Provider: JASMIN Geiger :2000 A ge:24 Y S ex:Female Date:03/08/2024 Address: [address] [id number] Pcp:Demarcus Brewer Subjective: * Chief Complaints: * 1 . Anxiety. * HPI: P sychology: 24 year old female presents with c/o Anxiety P t is here today for c/o anxiety. Pt has been on medication in the past and it has not helped. Pt not sleeping well. Pt sts she would also like to talk about possible ADD. She is having trouble focusing and remembering things. Has been on zoloft and wellbutrin, and celexa and nothing has ever really worked well.. * ROS: D ERMATOLOGY: no R dea. n o H david. G ASTROENTEROLOGY: no N ausea. n o V omiting. n o D iarrhea.? U ROLOGY: no D ifficulty urinating. n o B lood in urine. * Medical History: A bdominal pain, ER visit at [place], [place] with CT scan and transvaginal U/S, 2019. * Surgical History: a denoidectomy , ear tubes x 3 , 01/2019, C- section at [facility] 2020 . * Hospitalization/Major Diagno stic Procedure: [...] drug use: no. Alcohol: No. * Medications: N one * Allergies: S ulfa Antibiotics, Zithromax: rash. Objective: * Vitals: W t:178.4, Temp:98.5, BP:120/80, HR:92, O2 Sat:97% on RA, Nurse:[facility] [place], Ht: 65.75, BMI:29.01. * Examination: P sychology: General Appearance: N AD. G rooming : a dequate.?Eye contact : n ormal. M ood : p leasant. H eart: R SR. L ungs: c lear to auscultation. A bdomen: bowel sounds present, soft and nontender. N eurologic Exam: I ntact, gait normal. Assessment: * Assessment: 1. A nxiety - F41.9 (Primary) 2 . F orgetfulness - R68.89 3 . I ntractable migraine without aura and without status migrainosus - G43.019 Plan: * Treatment: 2. F orgetfulness L AB: P-Comprehensive Metabolic Panel (CMP) (Collection Date & Time - 03/08/2024 09:45 AM) C r 0.43 Value Reference Range A /G Ratio 2.1 1.1-2.5 - * A lbumin 4.5 3.5-5.3 - g/dL * A lkaline Phosphatase 49 35-121 - IU/L * A LT (SGPT) 9 <5-47 - IU/L * A ST (SGOT) 13 <5-40 - IU/L * B ilirubin, Total 0.3 <0.2-1.2 - mg/dL * B UN 13 6-20 - mg/dL * C alcium 9.1 8.6-10.4 - mg/dL * C hloride 107 97-108 - mmol/L * C O2 25 22-32 - mmol/L * C reatinine 0.43 L 0.50-1.00 - mg/dL * G lucose 86 65-99 - mg/dL * P otassium 4.2 3.5-5.3 - mmol/L * S odium 141 135-145 - mmol/L * P rotein 6.6 6.0-8.3 - g/dL * e GFR by Creatinine 137 >59 - mL/min/1.73m2 * Carmen Hyde 03/13/2024 10 :43:57 AM > see TE ?LAB: P-TSH reflex to FT4 (Collection Date & Time - 03/08/2024 09:45 AM)? Normal* Value Reference Range T SH reflex to FT4 1.08 0.43-5.25 - mU/L * Carmen Hyde 03/13/2024 10 :43:57 AM > see TE 3.?Intractable migraine without aura and without status migrainosus?LAB: P-Vitamin B12 (Collection Date & Time - 03/08/2024 09:45 AM)?365* Value Reference Range V itamin B12 358 100-5282 - pg/mL * Carmen Hyde 03/13/2024 10 :43:57 AM > see TE ?LAB: P-Vitamin D 25-Hydroxy (Collection Date & Time - 03/08/2024 09:45 AM)? 22.9* Value Reference Range V itamin D 25-Hydroxy 22.9 L 30.0-100.0 - ng/mL * Carmen Hyde 03/13/2024 10 :43:57 AM > see TE ?LAB: CBC Venipuncture (in house) (Collection Date & Time - 03/08/2024)* Value Reference Range w bc 5.6 3.5 - 10 * l ymph 28.1 15 - 50 * m id 5.7 2 - 15 * g ran 66.2 35 - 80 * r bc 4.01 3.5 - 5.5 * h gb 12.6 11.5 - 16.5 * h ct 36.5 35 - 55 * m cv 90.9 75 - 100 * m ch 31.4 25 - 35 * m chc 34.5 31 - 38 * p latlet 249 100 - 400 * Rachna Treviño 03/08/2024 11:16 :43 AM > , Provider reviewed results while patient in office.Carmen Hyde Karin 03/08/2024 12:27:47 PM > * Procedure Codes: 9 4760 [place], [address] CBC WITH AUTO DIFF, 81531 VENIPUNCT, ROUTINE* * Follow Up: v ia phone to report test results * Images: Billing Information: * Visit Code: 23335 Office Visit, Est Pt., Level 3. * Procedure Codes: [address] [place]. [address] CBC WITH AUTO DIFF. 62178 VENIPUNCT, ROUTINE*. * Electronic signature of JASMIN Perez on 01/19/2025 at 09:14 AM EDT Sign off status: Pending * Provider: JASMIN Geiger Date: 0 03/08/2024 Generated for Ashley dennis/Mimi/eTransmitting on: 0 01/19/2025 09:14 AM EDT History and Physical Notes * HPI (History of Present Illness) Category Sub-Category Detail Notes Category Not es Psychology Anxiety Pt is here today for c/o anxiety. Pt has been on medication in the past and it has not helped. Pt not sleeping well. Pt sts she would also like to talk about possible ADD. She is having trouble focusing and remembering things. Has been on zoloft and wellbutrin, and celexa and nothing has ever really worked well. Examination Category Sub-Category Detail Notes Category Not es Psychology Heart: RSR Lungs: clear to auscultatio n Abdomen: bowel sounds present , soft and nontender General Appearance: NAD Neurologic Exam: Intact, gait normal Grooming : adequate Eye contact : normal Mood : pleasant
--- OUTSIDE RECORDS SUMMARY | 2025-01-19 09:15 | XMS_ITS | Clinical Summary ---
[facility] Organization [facility] Address [address] [place] [address] Care Team Providers Care Bakery Worker Name Role Phone Twin Balderas MD Primary Care Provider [phone] Allergies Active Allergy Reactions Criticality Noted Date Comments Azithromycin Rash Low 05/07/2020 Sulfa Antibiotics Rash Low 05/07/2020 Medications buPROPion HCl (WELLBUTRIN PO) Take by mouth. Active norethindrone-et hinyl estradiol (Loestrin 1/, 21,) 1-20 MG-MCG per tablet Take 1 tablet by mouth Daily. 84 tablet 3 05/07/2020 Active Active Problems No known active problems Family History Medical History Relation Name Comments Hypertension Father Heart disease Maternal Grandfather Hypertension Maternal Grandfather Breast cancer Maternal Grandmother Hypertension Maternal Grandmother Hypertension Paternal Grandfather Leukemia Paternal Grandfather Breast cancer Paternal Grandmother Hypertension Paternal Grandmother Relation Name Status Comments Father Maternal Grandfather Maternal Grandmother Paternal Grandfather Paternal Grandmother Social History Tobacco Use Types Packs/Day Years Used Date Smoking Tobacco: Never Smokeless Tobacco: Never Alcohol Use Standard Drinks/Week Comments Never 0 (1 standard drink = 0.6 oz pur e alcohol) AUDIT-C Answer Date Recorded Q1: How often do you have a drink containing alc ohol? Never 05/07/2020 Average Number of Drinks Not on file 020 Frequency of Binge Drinking Not on file 04/14 Abuse Screen Answer Date Recorded Unsafe at Home or Work/School Not on file Feels Threatened by Someone? Not on file 05/2023 Does Anyone Keep You from Co ntacting Others or Doint Things Outside the Home? Not on file 03/24/2023 Physical Sign of Abuse Present Not on file 1 Housing Stability Answer Date Recorded Current Living Arrangements Not on file 03/13 Potentially Unsafe Housing Conditions Not on janette e 03/24/2023 Family and Community Support Answer Wilmer e Recorded Help with Day-to-Day Activities Not on file 03/24/2023 Lonely or Isolated Not on file 03/24/2023 Employment Answer Date Recorded Do you want help finding or keeping work or a escobar b? Not on file 03/24/2023 Disabilities Answer Date Recorded Concentrating, Remembering, or Making Decisions Difficulty Not on file 03/24/2023 Doing Errands Independently Difficulty Not on fi le 03/24/2023 Education Answer Date Recorded Help with school or training? Not on file Preferred Language Not on file 03/24/2023 Comments No Sex and Gender Information Value Date Recorded Sex Assigned at Not on file Legal Sex Female 4:25 PM EST Gender Identity Not on file Sexual Orientation Not on file Occupation Industry Job Start Date Job End Date [employer] EMPLOYEE Not on file Not on file Not on f ile STUDENT Not on file Not on file Not on file Last Filed Vital Signs Vital Sign Reading Time Taken Comments Blood Pressure 112/68 05/07/2020 2:43 PM EST Pulse - - Temperature - - Respiratory Rate - - Oxygen Saturation - - Inhaled Oxygen Concentration - - Weight 88.5 kg (195 lb) 05/07/2020 2:43 PM EST Height 167.6 cm (5' 6 ) 05/07/2020 2:43 PM EST Body Mass Index 31.47 05/07/2020 2:43 PM EST Plan of Treatment Health Maintenance Due Date Last Done Comments Annual Gynecologic Pelvic an d Breast Exam 1998 HPV VACCINES (1 - 3-dose series) 2013 TDAP/TD VACCINES (1 - Tdap) 2017 ANNUAL PHYSICAL 04/04/2020 HEPATITIS C SCREENING 04/04/2020 COVID-19 Vaccine ( - 2023-2 5 season) 2024 INFLUENZA VACCINE 03/13/2025 CHLAMYDIA SCREENING Discontinued 05/19/2020 Pneumococcal Vaccine 0-49 Aged Out No longer eligible based on patient's age to complete this topic Procedures Procedure Name Priority Date/Time Associated Diagnosis Comments PAP IG, CT-NG, RFX HPV ASCU ([facility]) Routine 05/19/2020 Women's annual routine gynecological examination from Last 3 Months or Most Recently Relevant to Health Maintenance Results * Pap IG, Ct-Ng, Rfx HPV ASCU (05/19/2020) ThinPrep Vial us Lexii Alexander [address]HW[address] RESEARCH ENGINEER PATHOLOGY/CYTOLOGY ORDERAB LES Final Result [facility]
[address] [place] [address], from Last 3 Months or Most Recently Relevant to Health Maintenance Insurance PPO Care Teams Bakery Worker Relationship Specialty Start Date End Date wTin Balderas MD [address] [facility] [address] [place] [id number] PCP - General Family Medicine 05/07/20
--- OUTSIDE RECORDS SUMMARY | 2025-01-19 09:15 | XMS_ITS | Patient Health Record ---
[facility] Address [address] [place] [id number] Care Team Providers Care Property Controller Name Role Phone Daniella Demarcus Primary Care Provider Grace Balderas Unavailable [phone] Carmen Hyde Unavailable [phone] Allergies Allergen (clinical drug ingredient) Drug/Non Drug [...] date:03/13/2024 10:44:10 AM Interpretation:365 Performing Lab: Notes/Report: CLIA: [id number] Saeed Ayala MD, Castables Worker [address] [place] [address] , [address], [place] [address] Test performed by [facility] Vitamin B12 303 150-7306 pg/mL P-Comprehensive Metabolic Pa akua (CMP) Reviewed date:03/13/2024 10:44:10 AM Interpretation:Cr 0.43 Performing Lab: Notes/Report: Test performed by [facility] [address] [place] [address] , [place] [address] Saeed Ayala MD, Castables Worker CLIA: [id number] Sodium 141 135-145 mmol/L Potassium 4.2 3.5-5.3 [...] Interpretation:Normal Performing Lab: Notes/Report: Test performed by [facility] [address] [place] [address] , [place] [address] Saeed Ayala MD, [employer]ables Worker CLIA: [id number] TSH reflex to FT4 1.08 0.43-5.25 mU/L P-Vitamin D 25-Hydroxy Reviewed date:03/13/2024 10:44:10 AM Interpretation:22.9 Performing Lab: Notes/Report: Test performed by [facility] [address] [place] [address] , [place] [address] Saeed Ayala MD, Castables Worker CLIA: [id number] Vitamin D 25-Hydroxy 22.9 30.0-100.0 ng/mL Interpretation of Vitamin D 25 OH: < 20 ng/mL - Deficiency 20 - 29 ng/mL - Insufficiency 30 - 100 ng/mL - Sufficiency > 100 ng/mL - Super-therapeutic- toxicity may occur above this level. Clinical correlation required. Medications Medication SIG (Take, Route, Fr equency, Duration) Notes Start Date End Date Status Desvenlafaxine ER 50 MG 1 tablet Orally Once a day; Duration: 90 days 08/20/2024 Active Immunizations Vaccine Route Administration Date Status Marce jason xGardasil IM Intramuscular 02/12/2009 Administered xGardasil IM Intramuscular 06/03/2009 Administered xGardasil IM Intramuscular 12/03/2009 Administered xFluzone (6mos and older)-trivalent IM Intramuscular 06/02/2010 Administered xFluzone (6mos and older)-trivalent IM Intramuscular 05/16/2012 Administered xFluzone (6mos and older)-trivalent IM Intramuscular 04/16/2013 Administered xFlu shot-36 months and older IM Intramuscular 02/12/2009 Administered xFlu shot-36 months and older IM Intramuscular 03/25/2010 Administered xFlu shot-36 months and older IM Intramuscular 04/13/2011 Administered Tetanus Tdap-Adacel (over 7yrs) IM Intramuscular 12/09/2015 Administered MENINGOCOCCAL VACCINE, SC IM Intramuscular 02/12/2009 Admi nistered Fluzone Quad (6months&older) IM Intramuscular 04/21/2018 Administered COVID 19 Moderna Unknown 06/18/2020 Administered COVID 19 Moderna Unknown 07/16/2020 Administered Problems Problem Type SNOMED Code ICD Code Onset Dates Problem Status W/U Status Risk Notes Problem ACNE NEC (706.1) Active confirmed Problem Anxiety (82554408) Anxiety (F41.9) Active confirmed Problem Refractory migraine without aura (818900715) Intractable migraine without aura and without status migrainosus (G43.019) Active confirmed Problem Facial paresthesia (63078536) Facial paresthesia (R20.2) Active confirmed Vital Signs Heart Rate 92 /min 03/08/2024 Blood pressure diastolic 80 mm Hg 03/08/2024 Height 65.75 in 03/08/2024 Blood pressure systolic 120 mm Hg 03/08/2024 Weight 178.4 lbs 03/08/2024 BMI 29.01 kg/m2 03/08/2024 Encounters Encounter Location Date Provider Diagnosis [facility] [address] [place] [id number] 03/08/2024 Carmen Hyde Anxiety F41.9 ; Forgetfulness R68.89 and Intractable migraine without aura and without status migrainosus G43.019 [facility] [address] [place] [id number] 03/13/2024 Carmen Hyde [facility] [address] [place] [id number] 08/20/2024 Carmen Hyde Assessments Encounter Date Diagnosis (ICD Code) Assessment Notes Treatment Notes Treatment Clinical Notes Section Notes 03/08/2024 Forgetfulness (ICD-10 - R68.89) 03/08/2024 Anxiety (ICD-10 - F41.9) She is going to get a genetic swab and f/u with Dee Dee Sanchez before starting any new medications. Will get labs. 03/08/2024 Intractable migraine without aura and without status migrainosus (ICD-10 - G43.019) Plan Of Treatment No Information Insurance Providers Payer Name Payer Address Payer Phone Subscriber Number Group Number Insured Name Patient Relationship to Insured Coverage Start Date Coverage End Date [employer] [address] [place] [address] [id number] JOE Sanon Self - patient is the insured Medications Administered Medication Instructions Date of Administration Dosage Notes Bicillin LA 1,200,000 05/27/2005 2 mL Medical (General) History Medical History History ICD Code Abdominal pain, ER visit at [place], [place] with CT scan and transvaginal U/S, 2019 Surgical History Surgery Date(Month/Year) adenoidectomy ear tubes x 3 01/2019 C- section at [facility] 2020 Hospitalization History Reason Date(Month/Year) [facility] 04/27
--- OUTSIDE RECORDS SUMMARY | 2025-01-19 09:15 | XMS_ITS | Clinical Summary ---
Author Organization [facility] Address [address] [place] [address] Care Team Providers Care Coal Cutting Machine Operator Name Role Phone Twin Balderas MD Primary Care Provider [phone] Allergies Active Allergy Reactions Criticality Noted Date Comments Azithromycin Rash,Unknown - Patie nt states they do not know rxn details Low 04/24/2015 Sulfa Drugs Unknown - Patient st ates they do not know rxn details,Rash Low 04/24/2015 Bupropion Hallucinations Medium 08/02/2022 Medications phentermine (Adipex-P) 37.5 MG tabletIndication s:Weight loss counseling, encounter for Take 1 tablet (37.5 mg) by mouth 1 (one) time each day before breakfast. 30 tablet 10/21/2023 Active Active Problems Problem Noted Date Diagnosed Date Weight loss counseling, encounter for 08/02/2022 Assessment & Plan (10/21/2023 4:01 PM EDT): - has been off for a few months - would like to restart -blood pressure normal -phentermine Rx sent -RTC 1 month Assessment & Plan (03/14/2023 8:43 AM EDT): -has gained 5lbs, has been off for a few months - would like to restart -blood pressure doing well -refill sent in -Follow up in a month Assessment & Plan (01/03/2023 10:05 AM EDT): -Down 5lbs since November -blood pressure doing well -would like to continue course of medications -refill sent in -Follow up in a month Assessment & Plan (11/22/2022 10:57 AM EDT): - happy with phentermine, 10 pound weight loss, normal BP - phentermine Rx sent - RTC as needed Assessment & Plan (10/04/2022 9:42 AM EDT): - happy with phentermine, 41 pound weight loss, normal BP - phentermine Rx sent - RTC 1 month Assessment & Plan (08/30/2022 10:28 AM EDT): - happy with phentermine. 11 pound weight loss, normal BP - phentermine Rx sent - RTC 1 month Assessment & Plan (08/02/2022 12:54 PM EST): - discussed phentermine - she is interested. Discussed dry mouth and heart palpitations as side effect. Discussed 6-8 pound weight loss in 1st month and 1- 2 pounds each additional month. Discussed that it is controlled substance and need for monthly appointment. - phentermine Rx sent - RTC 1 month Moderate episode of recurrent major depressive d isorder 08/02/2022 Assessment & Plan (11/22/2022 10:57 AM EDT): - mood doing well - continue Zoloft 50 mg Assessment & Plan (10/04/2022 9:42 AM EDT): - mood improving - continue Zoloft 50 mg Assessment & Plan (08/30/2022 10:29 AM EDT): - mood improving. Unsure if it is improving with medication or weight loss. - continue Zoloft 50 mg - RTC 4 weeks for symptom eval Assessment & Plan (08/02/2022 12:55 PM EST): - we discussed starting zoloft today. We discuss main side effects are GI distress. Discussed BBW or increasd homicidal or suicidal ideation and if that happens to discontinue use and immediately seek emergency care. Discussed usually takes 4-6 weeks to see symptom improvement. - we also discussed that medical management also works well with therapy. She is interested in therapy. Therapy contact information provided to patient - Zoloft 50 mg Rx sent - RTC 4 weeks for symptom eval Resolved Problems Problem Noted Date Diagnosed Date Resolved Date Urinary tract infection with hematuria 08/30/2022 11/22/2022 Family History Medical History Relation Name Comments Conversions - Other Mother Healthy adult breast cancer Other maternal aunt Relation Name Status Comments Mother Other maternal aunt Social History Tobacco Use Types Packs/Day Years Used Date Smoking Tobacco: Never Smokeless Tobacco: Never Alcohol Use Standard Drinks/Week Comments Never 0 (1 standard drink = 0.6 oz pur e alcohol) PHQ-2 Answer Date Recorded Patient Health Questionnaire-2 Score 0 10/21/2023 PHQ-2A Answer Date Recorded Patient Health Questionnaire-2 Score 0 03/14/2023 Comments No Sex and Gender Information Value Date Recorded Sex Assigned at Not on file Legal Sex Female 7:13 PM EDT Gender Identity Not on file Sexual Orientation Not on file Last Filed Vital Signs Vital Sign Reading Time Taken Comments Blood Pressure 107/75 10/21/2023 4:00 PM EDT Pulse 78 03/14/2023 8:30 AM EDT Temperature 36.7 C (98.1 F) 01/03/2023 9:50 AM EDT Respiratory Rate 16 03/14/2023 8:30 AM EDT Oxygen Saturation 99% 03/14/2023 8:30 AM EDT Inhaled Oxygen Concentration - - Weight 79.6 kg (175 lb 7.8 oz) 10/21/2023 3:48 P M EDT Height 167.6 cm (5' 6 ) 01/03/2023 9:50 AM EDT Body Mass Index 28.32 01/03/2023 9:50 AM EDT Plan of Treatment Health Maintenance Due Date Last Done Comments [facility]-HIV Screening 1998 [facility]-Hepatitis C Screening 1998 [facility]-Infant/Child/Adol SDOH Screenings 1998 [facility]-Varicella Vaccines (1 of 2 - 13+ 2-dose series) 2011 HPV Vaccines (1 - 3-dose series) 2013 [facility]- SDOH Screenings 02/26/2016 [facility]-Adult SDOH Screenings 02/26/2016 [facility]-DTaP,Tdap,and Td Vaccines (1 - Tdap) 2017 [facility]-Hepatitis B Vaccines (1 of 3 - 19+ 3-dose series) 2017 [facility]-Pap Smear 2019 [id number] Vaccine (3 - 2023- season) 2024 07/16/2020, 06/18/2020 [facility]-Depression Screening 10/20/2024 10/21/2023 [facility]-Influenza Vaccine (#1) 2025 04/21/2018 [facility]-Zoster Vaccines (1 of 2) 02/26/2048 [facility]-Obesity Intervention Completed 024, 03/14/2023, 01/03/2023, Additional history exists [facility]-HIB Vaccines Aged Out No longer e ligible based on patient's age to complete this topic [facility]-Hepatitis A Vaccines Aged Out No longer eligible based on patient's age to complete this topic [facility]-IPV Vaccines Aged Out No longer e ligible based on patient's age to complete this topic [facility]-Pneumococcal Vaccine: Pediatrics (0 to 5 Years) and At-Risk Patients (6 to 49 Years) Aged Out No longer eligible based on patient's age to complete this topic [facility]-Rotavirus Vaccines Aged Out No lo nger eligible based on patient's age to complete this topic Insurance [place] Care Teams Coal Cutting Machine Operator Relationship Specialty Start Date End Date Twin Balderas MD [address] [place] [id number] PCP - General 10/24/20
== END 2025-01-19 23:59 | disposition home or self-care (01) ==
LOC: LAB 09:13
PROVIDERS: PCP Physician Assistant; Visit Provider Obstetrics & Gynecology
DX: Z34.90 Encounter for supervision of normal pregnancy, unspecified, unspecified trimester (principal); N92.6 Irregular menstruation, unspecified
CPT/HCPCS: 36415; 84144; 84702

== ENCOUNTER 2025-01-19 11:33 | Emergency (ER) | payer BC, SELFPAY ==
[2025-01-19] VITALS (8 sets, daily range): BP systolic 102–128; BP diastolic 60–75; PULSE 76–86; RESP 17–20; TEMP 36.4–37; O2SAT 96–100; BMI 27.2
--- OUTSIDE RECORDS SUMMARY | 2025-01-19 11:48 | XMS_ITS | Clinical Summary ---
[facility] Address [address] [place] [address] Care Team Providers Care Asphalt Heater Tender Name Role Phone Twin Balderas MD Primary Care Provider [phone] Allergies Active Allergy Reactions Criticality Noted Date [...] ASCU (05/19/2020) ThinPrep Vial us Lexii Alexander PHOTOGRAPHER LITHOGRAPHIC PATHOLOGY/CYTOLOGY ORDERAB LES Final Result [facility]
[address] [place] [address], from Last 3 Months or Most Recently Relevant to Health Maintenance Insurance PPO Care Teams Asphalt Heater Tender Relationship Specialty Start Date End Date Twin Balderas MD [address] [facility] [address] [place] [id number] PCP - General Family Medicine 05/07/20
--- OUTSIDE RECORDS SUMMARY | 2025-01-19 11:48 | XMS_ITS | Clinical Summary ---
Author Organization [facility] Address [address] [place] [address] Care Team Providers Care Hat Model Name Role Phone Twin Balderas MD Primary Care Provider [phone] Allergies Active Allergy Reactions Criticality Noted [...] 19+ 3-dose series) 2017 [facility]-Pap Smear 2019 [id number] Vaccine (3 - 2023- season) 2024 07/16/2020, [...] patient's age to complete this topic Insurance [place] Care Teams Hat Model Relationship Specialty Start Date End Date Twin Balderas MD [address] [place] [id number] PCP - General 10/24/20
--- NOTE | 2025-01-19 12:03 | US_ITS ---
PROCEDURE INFORMATION: Exam: US Pelvis, Transvaginal, Non-Obstetric Exam date and time: 01/19/2025 12:43 PM Age: 24 years old Clinical indication: Pelvic pain; Prior surgery; Surgery date: 6+ months; Surgery type: C sections; PT complains of rlq pain after multiple positive at home test. Hcg was negative and < 2 according to bloodwork taken at hospital; Additional info: R/O ectopic TECHNIQUE: Imaging protocol: Real-time transvaginal pelvic (non-obstetric) ultrasound with image documentation. Transvaginal imaging was used for better evaluation of the endometrium, adnexa, and/or cervix. COMPARISON: US OB TRANSVAGINAL 10/21/2020 8:20 PM FINDINGS: Uterus: 5 mm endometrium. Trilaminar appearance suggesting this is the proliferative phase of the patient's menstrual cycle. Right ovary/adnexa: Normal right ovary with flow. Left ovary/adnexa: Normal left ovary with flow. Urinary bladder: Urinary bladder is limited. Gestation: No intrauterine gestation. Intraperitoneal space: Trace amount of free fluid in the cul-de-sac. IMPRESSION: 1. No intrauterine gestation. No abnormal ovary mass. 2. Trace fluid.
[2025-01-19 12:09] LABS: Microscopic, Urine URINE MICROSCOPIC (MICROSCOPIC)
--- NOTE | 2025-01-19 12:09 | HMH.EDGENADL ---
Discharge Plan Disposition Patient Disposition: Home, Self-Care Condition: Good Prescriptions Prescriptions: No Action desvenlafaxine succinate [Pristiq] 50 mg tablet extended release 24 hr 50 mg PO DAILY Qty: 30 1RF metronidazole 500 mg tablet 500 mg PO BID 7 Days Qty: 14 0RF Referrals Follow up/Referrals: Carmen Hyde PA [Primary Care Provider, Medical] - See instructions Keren Purcell DO [Staff Physician, BUILDING RENTAL SUPERINTENDENT] - See instructions Activity Restrictions/Add. Instructions Additional Instructions/Restrictions: Increase fluids and rest. Follow-up with Dr. Pathak. If you have any other problems or concerns please return to the ED. Clinical Impressions Clinical Impression: Abnormal menstrual periods Instructions Patient Instructions: DI for Acute Abdominal Pain Print Language Print Language: [place] Verde[place] Discharge ED Provider: Miguel Chaves Adult HPI <Emelia Zimmerman (ED), DIRECTOR OF CAPITAL GIVING - Last Filed: 01/19/25 15:26> General Chief complaint: Abdominal Pain Stated complaint: pain on lower right side -positive test Time Seen by Provider: 01/19/25 11:57 Mode of Arrival: Ambulatory Source of Information: Patient Description of Symptoms (Recalled from ER Triage Doc. by RN): Patient presents to ED from home with c/o RLQ pain/ cramping . Patient states she had three positive home test so she had labs done this AM in which the test was negative. Patient reports concerns for ectopic , denies vaginal bleeding. Notes hx of miscarriage. History of Present Illness HPI narrative: 24-year-old female presents to the ED today with complaint of right lower quadrant pain and cramping for the past week. States that she had 3 positive tests. She went this morning and had some blood work and the hCG was less than 2. She says that she has had a miscarriage in the past. She states that her periods are abnormal but she has not had one for 2 months. She has had nausea and vomiting this week no fevers or chills. No other pain. She is concerned that she may have something wrong. Dr. Pathak is her BUILDING RENTAL SUPERINTENDENT. Related Data Previous Rx's ?Medication ?Instructions ?Recorded desvenlafaxine succinate 50 mg 50 mg PO DAILY #30 tabs 04/20/24 tablet,extended release 24 hr (Pristiq) metronidazole 500 mg tablet 500 mg PO BID 7 days #14 tabs 10/16/24 Allergies Allergy/AdvReac Type Severity Reaction Status Date / Time azithromycin (AZITHROMYCIN) Allergy Unknown Verified 10/11/24 10:14 Sulfa (Sulfonamide Allergy Unknown Verified 10/11/24 10:14 Antibiotics) (SULFA (SULFONAMIDE ANTIBIOTICS)) prednisone AdvReac Mild Verified 10/11/24 10:14 PFSH <Emelia Zimmerman (ED), DIRECTOR OF CAPITAL GIVING - Last Filed: 01/19/25 15:26> PFS Disclaimer: The information contained in this section may have been updated after the patient was seen, as this information can be updated by other users. Medical History (Updated 01/19/25 @ 15:07 by Emelia Zimmerman (ED), DIRECTOR OF CAPITAL GIVING) Female perineal pressure Generalized anxiety disorder Recurrent major depression resistant to treatment Asthma Surgical History History of adenoidectomy Previous section Social History Smoking Status: Never smoker second hand exposure: No alcohol intake: current alcohol intake frequency: holidays/special occasions only counseling given: No substance use type: denies use counseling given: No current occupational status: employed Travel in the last 8 weeks?: None adopted: No caregiver/support person: Yes (has 2 kids) foster care: No household members: spouse housing: house lives independently: Yes marital status: number of children: 2 number of grandchildren: 0 education level: college 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 Hx Recent Travel: Yes (she went to [place] in March; for work) sexually active: Yes caffeine: Yes physical activity: none working smoke detector in home: Yes fire extinguisher in home: Yes carbon monox detector in home: Yes firearms in home: No do you feel safe at home: Yes victim of physical abuse: No victim of emotional abuse: No victim of sexual abuse: No would you like helpful sources: No Have you lived/traveled outside US in past 30 days?: No Contact w/someone who lives/traveled outside US past 30 days?: No Exposure to someone with infectious disease in past 14 days?: No Do you have a fever (greater than 100.4 F or 38 C)?: No Have you tested positive for COVID-19?: No Exposed to someone with COVID-19 in past 14 days?: No Do you have a sore throat?: No Do you have a cough?: No Do you have any weakness?: No Do you have any diarrhea?: No Are you experiencing any unusual bleeding?: No Do you have any muscle aches/pain?: No Do you have any abdominal pain?: No Are you experiencing loss of taste or smell?: No Other Medical History Have you received the Flu Vaccine for this season: Yes Have you received the Pneumonia Vaccine: No <Emelia Zimmerman (ED), DIRECTOR OF CAPITAL GIVING - Last Filed: 01/19/25 15:26> ROS Obtained: Yes Systems reviewed as appropriate & no additional complaints except as documented Constitutional Constitutional: Reports as per HPI Physical Exam <Emelialulu Zimmerman (ED), DIRECTOR OF CAPITAL GIVING - Last Filed: 01/19/25 15:26> General General appearance: alert and in no apparent distress Head Head exam: atraumatic and normocephalic Eye Eye exam: Present normal appearance, PERRL and EOMI ENT ENT exam: Present mucous membranes moist Neck Neck exam: Present full ROM and trachea midline Respiratory Respiratory exam: Present normal lung sounds bilaterally Cardiovascular Cardiovascular exam: Present regular rate, normal rhythm, normal heart sounds, +S1 and +S2 Abdominal Exam Abdominal exam: Present soft and normal bowel sounds Abdominal tenderness: Present RLQ Extremities Exam Extremities exam: Present normal inspection, full ROM and normal capillary refill Neurological Exam Neurological exam: Present alert and oriented X3 Skin Skin exam: Present warm, dry and intact Medical Decision Making <Emelia Zimmerman (ED), DIRECTOR OF CAPITAL GIVING - Last Filed: 01/19/25 15:26> Medical Records Screening: Per USPSTF and CDC recommendations, given the prevalence of disease in our region, it is our hospital?s policy to screen for HIV and viral Hepatitis for all patients aged 18 and over and those with ongoing risk factors. Peter Inquiry Pt receiving controlled substance: No Peter was queried for this patient: No Vital Signs: 01/19/25 11:54 01/19/25 11:56 01/19/25 12:02 Temperature 97.5 F L Temperature Source Oral Pulse Rate 80 82 Pulse Rate [Left] 81 Respiratory Rate 17 19 17 Blood Pressure Blood Pressure [Right Arm] 128/73 Blood Pressure Mean [Right Arm] 91 Blood Pressure Source Blood Pressure Source [Right Arm] Automatic Cuff Blood Pressure Position 02 Sat by Pulse Oximetry 99 99 96 Oxygen Delivery Method Room Air Room Air Room Air 01/19/25 12:15 01/19/25 12:31 01/19/25 14:15 Temperature Temperature Source Pulse Rate 85 86 82 Pulse Rate [Left] Respiratory Rate 17 Blood Pressure 102/69 L 110/60 Blood Pressure [Right Arm] Blood Pressure Mean [Right Arm] Blood Pressure Source Blood Pressure Source [Right Arm] Blood Pressure Position 02 Sat by Pulse Oximetry 98 97 100 Oxygen Delivery Method Room Air Room Air 01/19/25 14:30 01/19/25 15:10 Temperature 98.6 F Temperature Source Oral Pulse Rate 78 76 Pulse Rate [Left] Respiratory Rate 20 Blood Pressure 117/60 113/75 Blood Pressure [Right Arm] Blood Pressure Mean [Right Arm] Blood Pressure Source Automatic Cuff Blood Pressure Source [Right Arm] Blood Pressure Position Sitting 02 Sat by Pulse Oximetry 100 Oxygen Delivery Method Room Air Room Air Lab Data Lab Results 01/19/25 11:57: Urine Color Yellow, Urine Appearance Cloudy, Urine pH 8.0, Ur Specific [place] 1.015, Urine Protein Negative, Urine Glucose (UA) Negative, Urine Ketones Negative, Urine Blood Negative, Urine Nitrate Negative, Urine Bilirubin Negative, Urine Urobilinogen 0.2, Ur Leukocyte Esterase Negative, Urine RBC None, Urine WBC 3-5, Ur Squamous Epith Cells 5-10, Amorphous Sediment 1+, Urine Bacteria 3+ 01/19/25 12:13: WBC 4.5 L, RBC 3.75 L, Hgb 11.6 L, Hct 34.7 L, MCV 92.5, MCH 30.9, MCHC 33.4, RDW 12.2, Plt Count 234, MPV 8.8, Neut % (Auto) 50.7, Lymph % (Auto) 37.1, [place] % (Auto) 10.7 H, Eos % (Auto) 1.1, Baso % (Auto) 0.4, Neut # (Auto) 2.3, Lymph # (Auto) 1.7, [place] # (Auto) 0.5, Eos # (Auto) 0.1, Baso # (Auto) 0.0, Sodium 138, Potassium 4.1, Chloride 109 H, Carbon Dioxide 23, Anion Gap 10.1, BUN 11, Creatinine 0.50 L, Estimated Creat Clear 206, Estimated GFR 149, Est GFR ( Amer) 180, Glucose 78, Calcium 8.7, Magnesium 1.8, Total Bilirubin 0.4, AST 21, ALT 12, Alkaline Phosphatase 51, Total Protein 6.6, Albumin 4.3, Globulin 2.3, Albumin/Globulin Ratio 1.9 H, Lipase 80, Serum HCG, Qual Negative 01/19/25 12:13 01/19/25 12:13 Orders (Tests/Meds): ED MEDICATIONS Discontinued Medications Generic Name Dose Route Start Last Admin Trade Name Freq PRN Reason Stop Dose Admin Sodium Chloride 1,000 mls @ 999 mls/hr 01/19/25 12:03 01/19/25 12:21 Sod Chlor 0.9% 1000ml Bag IV 01/19/25 13:03 999 mls/hr .Q1H1M ONE Administration Lidocaine/Epinephrine 20 ml 01/19/25 12:05 01/19/25 12:16 Lidocaine 1% W/Epi 1:100,000 20ml Vial SQ 01/19/25 12:06 Not Given ONCE ONE ORDERS Category Date Time Status Beta HCG, Qual [HCG Qualitative, Serum] Stat Lab 01/19/25 12:13 Completed CBC [Complete Blood Count Auto Diff] Stat Lab 01/19/25 12:13 Completed Comprehensive Metabolic Panel Stat Lab 01/19/25 12:13 Completed Lipase Stat Lab 01/19/25 12:13 Completed Magnesium Stat Lab 01/19/25 12:13 Completed Urinalysis and Microscopic Stat Lab 01/19/25 11:57 Completed Urine Culture Stat Micro 01/19/25 11:57 Received US OB transvaginal Stat Ultrasound 01/19/25 12:03 Completed Medical Decision Narrative: patient is a 24-year-old female presenting to the emergency department for evaluation of right lower quadrant abdominal pain with possible . Patient is hemodynamically stable and nontoxic-appearing upon arrival, afebrile. Differential diagnosis includes , ectopic , torsion, miscarriage, appendicitis, UTI, among others. Workup will be conducted with hematologic labs, specific imaging. Initial inventions include crystalloid bolus, analgesics. Initial workup reviewed by me hematologic labs are remarkable for negative , normal white count. Normal labs.. Imaging informally interpreted by me and remarkable for nothing acute. Formal imaging read remarkable for nothing acute. Upon repeat evaluation patient's pain is improved. <Miguel Chaves MD - Last Filed: 01/20/25 07:20> Vital Signs: 01/19/25 11:54 01/19/25 11:56 01/19/25 12:02 Temperature 97.5 F L Temperature Source Oral Pulse Rate 80 82 Pulse Rate [Left] 81 Respiratory Rate 17 19 17 Blood Pressure Blood Pressure [Right Arm] 128/73 Blood Pressure Mean [Right Arm] 91 Blood Pressure Source Blood Pressure Source [Right Arm] Automatic Cuff Blood Pressure Position 02 Sat by Pulse Oximetry 99 99 96 Oxygen Delivery Method Room Air Room Air Room Air 01/19/25 12:15 01/19/25 12:31 01/19/25 14:15 Temperature Temperature Source Pulse Rate 85 86 82 Pulse Rate [Left] Respiratory Rate 17 Blood Pressure 102/69 L 110/60 Blood Pressure [Right Arm] Blood Pressure Mean [Right Arm] Blood Pressure Source Blood Pressure Source [Right Arm] Blood Pressure Position 02 Sat by Pulse Oximetry 98 97 100 Oxygen Delivery Method Room Air Room Air 01/19/25 14:30 01/19/25 15:10 Temperature 98.6 F Temperature Source Oral Pulse Rate 78 76 Pulse Rate [Left] Respiratory Rate 20 Blood Pressure 117/60 113/75 Blood Pressure [Right Arm] Blood Pressure Mean [Right Arm] Blood Pressure Source Automatic Cuff Blood Pressure Source [Right Arm] Blood Pressure Position Sitting 02 Sat by Pulse Oximetry 100 Oxygen Delivery Method Room Air Room Air Lab Data Lab Results 01/19/25 11:57: Urine Color Yellow, Urine Appearance Cloudy, Urine pH 8.0, Ur Specific [place] 1.015, Urine Protein Negative, Urine Glucose (UA) Negative, Urine Ketones Negative, Urine Blood Negative, Urine Nitrate Negative, Urine Bilirubin Negative, Urine Urobilinogen 0.2, Ur Leukocyte Esterase Negative, Urine RBC None, Urine WBC 3-5, Ur Squamous Epith Cells 5-10, Amorphous Sediment 1+, Urine Bacteria 3+ 01/19/25 12:13: WBC 4.5 L, RBC 3.75 L, Hgb 11.6 L, Hct 34.7 L, MCV 92.5, MCH 30.9, MCHC 33.4, RDW 12.2, Plt Count 234, MPV 8.8, Neut % (Auto) 50.7, Lymph % (Auto) 37.1, [place] % (Auto) 10.7 H, Eos % (Auto) 1.1, Baso % (Auto) 0.4, Neut # (Auto) 2.3, Lymph # (Auto) 1.7, [place] # (Auto) 0.5, Eos # (Auto) 0.1, Baso # (Auto) 0.0, Sodium 138, Potassium 4.1, Chloride 109 H, Carbon Dioxide 23, Anion Gap 10.1, BUN 11, Creatinine 0.50 L, Estimated Creat Clear 206, Estimated GFR 149, Est GFR ( Amer) 180, Glucose 78, Calcium 8.7, Magnesium 1.8, Total Bilirubin 0.4, AST 21, ALT 12, Alkaline Phosphatase 51, Total Protein 6.6, Albumin 4.3, Globulin 2.3, Albumin/Globulin Ratio 1.9 H, Lipase 80, Serum HCG, Qual Negative Orders (Tests/Meds): ED MEDICATIONS Discontinued Medications Generic Name Dose Route Start Last Admin Trade Name Freq PRN Reason Stop Dose Admin Sodium Chloride 1,000 mls @ 999 mls/hr 01/19/25 12:03 01/19/25 12:21 Sod Chlor 0.9% 1000ml Bag IV 01/19/25 13:03 999 mls/hr .Q1H1M ONE Administration Lidocaine/Epinephrine 20 ml 01/19/25 12:05 01/19/25 12:16 Lidocaine 1% W/Epi 1:100,000 20ml Vial SQ 01/19/25 12:06 Not Given ONCE ONE ORDERS Category Date Time Status Beta HCG, Qual [HCG Qualitative, Serum] Stat Lab 01/19/25 12:13 Completed CBC [Complete Blood Count Auto Diff] Stat Lab 01/19/25 12:13 Completed Comprehensive Metabolic Panel Stat Lab 01/19/25 12:13 Completed Lipase Stat Lab 01/19/25 12:13 Completed Magnesium Stat Lab 01/19/25 12:13 Completed Urinalysis and Microscopic Stat Lab 01/19/25 11:57 Completed Urine Culture Stat Micro 01/19/25 11:57 Received US OB transvaginal Stat Ultrasound 01/19/25 12:03 Completed Medical Decision Narrative: patient is a 24-year-old female presenting to the emergency department for evaluation of right lower quadrant abdominal pain with possible . Patient is hemodynamically stable and nontoxic-appearing upon arrival, afebrile. Differential diagnosis includes , ectopic , torsion, miscarriage, appendicitis, UTI, among others. Workup will be conducted with hematologic labs, specific imaging. Initial inventions include crystalloid bolus, analgesics. Initial workup reviewed by me hematologic labs are remarkable for negative , normal white count. Normal labs.. Imaging informally interpreted by me and remarkable for nothing acute. Formal imaging read remarkable for nothing acute. Upon repeat evaluation patient's pain is improved. I was consulted by the GONSALO, and we discussed the complexity of the problems being addressed. I approve the treatment and management plan for this patient's care in the emergency department, thus performing a substantive portion of the medical decision making. Miguel Chaves MD Critical Care <Emelia Zimmerman (ED), DIRECTOR OF CAPITAL GIVING - Last Filed: 01/19/25 15:26> Critical Care Time Critical Care Time: No
[2025-01-19 12:11] LABS: Bilirubin,Urine Negative (Negative); Color,Urine YELLOW (Yellow); Glucose,Urine (UA) Negative (Negative); Ketones,Urine Negative (Negative); Leukocyte Esterase,Urine Negative (Negative); PH,Urine 8.0 (5.0-8.5); Protein,Urine Negative (Negative); Specific Gravity, Urine 1.015 (1.005-1.030); Urobilinogen,Urine 0.2 EU/dl (0.2)
[2025-01-19] MEDS: 0.9 % SODIUM CHLORIDE 1000ML 1,000 ML 999 ML IV (12:21)
[2025-01-19 12:23] LABS: Hematocrit 34.7 % (37.0-47.0); Hemoglobin 11.6 g/dL (12.2-16.2); Immature Granulocytes % 0 %; Mean Corpuscular HGB Conc 33.4 g/dL (31.8-35.4); Mean Corpuscular Hemoglobin 30.9 pg (27.0-31.2); Mean Corpuscular Volume 92.5 fl (81-99); Nucleated Red Blood Cells % 0 %; Platelet Count 234 K/mm3 (142-424); Red Blood Count 3.75 M/mm3 (4.20-5.40); Red Cell Distribution Width-SD 41.7 fL; White Blood Count 4.5 K/mm3 (4.8-10.8)
[2025-01-19 12:39] LABS: Alanine Aminotransferase 12 U/L (12-78); Albumin Level 4.3 g/dl (3.5-5.0); Albumin/Globulin Ratio 1.9 (1.1-1.8); Alkaline Phosphatase 51 U/L (38-126); Anion Gap 10.1 mEq/L (5-15); Aspartate Amino Transferase 21 U/L (14-36); Bilirubin,Total 0.4 mg/dl (0.2-1.3); Blood Urea Nitrogen 11 mg/dl (7-17); Calcium 8.7 mg/dl (8.4-10.2); Carbon Dioxide 23 mmol/L (22.0-30.0); Chloride 109 mmol/L (98-107); Creatinine Clearance Estimated 206 mL/min (50-200); Creatinine,Serum 0.50 mg/dl (0.52-1.04); Estimated Glomerular Filt Rate 149 ml/min (>60); GFR (African American) 180 ML/MIN (>60); Globulin 2.3 g/dL (1.3-3.2); Glucose 78 mg/dl (74-100); Lipase 80 U/L (23-300); Magnesium 1.8 mg/dl (1.6-2.3); Potassium 4.1 mmoL/L (3.5-5.1); Sodium 138 mmol/L (136-145); Total Protein,Serum 6.6 g/dl (6.3-8.2)
[2025-01-19 12:44] LABS: HCG Qualitative, Serum Negative (Negative)
[2025-01-19 12:46] LABS: Amorphous Sediment,Urine 1+ /lpf; Bacteria,Urine 3+ /lpf
--- NOTE | 2025-01-19 12:56 | PC.NURSE ---
Patient to ultrasound now via wheelchair.
== END 2025-01-19 15:13 | disposition home or self-care (01) ==
PROVIDERS: Nurse Practitioner; Emergency Provider Student in an Organized Health Care Education/Training Program; PCP Physician Assistant
DX: R10.31 Right lower quadrant pain (principal); N92.6 Irregular menstruation, unspecified
CPT/HCPCS: 76817; 80053; 81001; 83690; 83735; 84703; 85025; 87086; 96360; 99284; J7030

== ENCOUNTER 2025-01-24 16:04 | Outpatient (CLI) | payer BC, SELFPAY ==
--- OUTSIDE RECORDS SUMMARY | 2025-01-24 16:07 | XMS_ITS | Clinical Summary ---
[facility] Organization [facility] Address [address] [place] [address] Care Team Providers Care Pharmacovigilance Specialist Name Role Phone Twin Balderas MD Primary Care Provider [phone] Allergies Active Allergy Reactions Criticality Noted Date [...] [facility] (05/19/2020) ThinPrep Vial us Lexii Alexander TIMBER MANAGEMENT ASSISTANT PATHOLOGY/CYTOLOGY ORDERAB LES Final Result [facility]
[address] [place] [address], from Last 3 Months or Most Recently Relevant to Health Maintenance Insurance PPO Care Teams Pharmacovigilance Specialist Relationship Specialty Start Date End Date Twin Balderas MD [address] [facility] [address] [place] [id number] PCP - General Family Medicine 05/07/20
--- OUTSIDE RECORDS SUMMARY | 2025-01-24 16:07 | XMS_ITS | Clinical Summary ---
Author Organization [facility] Address [address] [place] [address] Care Team Providers Care Sem Manager Name Role Phone Twin Balderas MD Primary Care Provider [phone] Allergies Active Allergy Reactions Criticality Noted [...] [facility]-HIV Screening 1998 [facility]-Hepatitis C Screening 1998 [facility]-/Child/Adol SDOH Screenings 1998 [facility]-Varicella Vaccines (1 of 2 - 13+ 2-dose series) 2011 HPV Vaccines (1 - 3-dose series) 2013 [facility]- SDOH Screenings 02/26/2016 [facility]-Adult SDOH Screenings 02/26/2016 [facility]-DTaP,Tdap,and Td Vaccines (1 - Tdap) 2017 [facility]-Hepatitis B Vaccines (1 of 3 - 19+ 3-dose series) 2017 [facility]-Pap Smear 2019 [id number] Vaccine (3 - 2023- season) 2024 07/16/2020, [...] patient's age to complete this topic Insurance [place] Care Teams Sem Manager Relationship Specialty Start Date End Date Twin Balderas MD [address] [place] [id number] PCP - General 10/24/20
== END 2025-01-24 23:59 | disposition home or self-care (01) ==
LOC: LAB 16:05
PROVIDERS: PCP Physician Assistant; Visit Provider Obstetrics & Gynecology
DX: N92.6 Irregular menstruation, unspecified (principal)
CPT/HCPCS: 36415; 84702